=== PATIENT | male | born 1960 | race Caucasian/White ===

== ENCOUNTER → 2016-11-07 | Outpatient (CLI) | payer MEDICARE ==
[~2016-11-07] MED LIST: CALC600T7 PO; FISH1000 PO; IBUP200T2 PO; IBUP800T23 PO; MULTLIQ7 PO; MULTTAB4 PO; PERCOCET PO; PRIL40CA PO; VICO5TA PO; VITA200028 PO
[2016-11-07 13:47] LABS: BASO # 0.1 K/mm3 (0.0-0.2); BASO % 0.7 % (0.0-1.0); EOS # 0.3 K/mm3 (0.0-0.50); LARGE UNSTAINED CELL # 0.2 K/mm3 (0.0-0.4); LARGE UNSTAINED CELL % 1.7 % (0.0-4.0); LYMPH # 1.8 K/mm3 (1.5-4.5); LYMPH % 17.9 % (24.0-44.0); MEAN CORPUSCULAR HEMOGLOBIN 31.7 pg (27.0-33.0); MEAN CORPUSCULAR HGB CONC 34.4 g/dl (32.0-36.5); MONO # 0.6 K/mm3 (0.0-0.8); MONO % 5.5 % (0.0-5.0); NEUTROPHILS # 7.1 K/mm3 (1.8-7.7); NEUTROPHILS % 71.3 % (36.0-66.0); PLATELET COUNT, AUTOMATED 291 k/mm3 (150-450); RED CELL DISTRIBUTION WIDTH 12.7 % (11.5-14.5); WHITE BLOOD COUNT 9.9 K/mm3 (4.0-10.0)
== END ==
LOC: M SMT 09:27
PROVIDERS: ATTEND Family Medicine
DX: E53.8 Deficiency of other specified B group vitamins (principal); E78.5 Hyperlipidemia, unspecified; R73.01 Impaired fasting glucose; R97.20 Elevated prostate specific antigen [PSA]
CPT/HCPCS: 36415; 80061; 82550; 83036; 84443; 85025; 86140; G0103

== ENCOUNTER → 2016-12-21 | Outpatient (REF) | payer MEDICARE ==
[2016-12-21 18:35] LABS: MICROSCOPIC INDICATED? MAN YES (NO)
[2016-12-21 18:50] LABS: RBC, URINE 0-1 /hpf (0-3); WBC, URINE 0-1 /hpf (0-3)
[2016-12-21 18:51] LABS: BACTERIA, URINE NONE SEEN; HYALINE CAST, URINE NONE SEEN /lpf (0-1); SQUAMOUS EPITHELIAL CELL URINE SMALL AMOUNT /hpf (SMALL AMT)
[2016-12-21 18:52] LABS: MICROSCOPIC EXAM PERFORMED
== END ==
LOC: M SMT 16:49
PROVIDERS: ATTEND Urology
DX: N39.0 Urinary tract infection, site not specified (principal)

== ENCOUNTER → 2017-01-01 | Outpatient (CLI) | payer MEDICARE | LOC: M SMT 08:55 | PROVIDERS: ATTEND Family Medicine | DX: M19.049 Primary osteoarthritis, unspecified hand (principal) | CPT/HCPCS: 36415; 82550; 84681; 85652; 86038; 86140; 86431; G0463 ==

== ENCOUNTER → 2017-05-23 | Outpatient (REF) | payer MEDICARE ==
[~2017-05-23] MED LIST changes: +IBUP1TAB7 PO; -IBUP800T23 PO
[2017-05-23 15:27] LABS: CHOLESTEROL LEVEL 133 MG/DL (<200); FREE T4 0.94 NG/DL (0.76-1.46); TRIGLYCERIDES LEVEL 136 MG/DL (<150)
== END ==
LOC: M SFHCPLAZ 11:26
PROVIDERS: ATTEND Family Medicine
DX: M19.049 Primary osteoarthritis, unspecified hand (principal); E78.5 Hyperlipidemia, unspecified; Z11.59 Encounter for screening for other viral diseases; R73.01 Impaired fasting glucose; E55.9 Vitamin D deficiency, unspecified
CPT/HCPCS: 36415; 80061; 82306; 83036; 83970; 84439; 84443; 85652; 86140; 86200; 86803; G0463

== ENCOUNTER → 2017-05-29 | Outpatient (CLI) | payer MEDICARE ==
--- NOTE | 2017-05-29 10:26 | REP ---
RIGHT HAND, FOUR VIEWS: HISTORY: Osteoarthritis. There is no acute fracture or dislocation. There is narrowing of the metacarpal phalangeal , intermediate and distal interphalangeal joint spaces. Small osteophytes are present at several metacarpophalangeal , intermediate and distal interphalangeal joint spaces. IMPRESSION: Degenerative change as described above. Signed by Basilio Bustos MD 05/29/2017 10:39 A
== END ==
LOC: M SMT 08:38
PROVIDERS: ATTEND Family Medicine
DX: M19.041 Primary osteoarthritis, right hand (principal)

== ENCOUNTER → 2017-07-26 | Outpatient (REF) | payer MEDICARE | LOC: M LAB REF 11:46 | PROVIDERS: ATTEND Family Medicine | DX: L72.3 Sebaceous cyst (principal) | CPT/HCPCS: 87070; 87077; 87186; 87205; G0463 ==

== ENCOUNTER → 2017-09-27 | Outpatient (REF) | payer MEDICARE ==
[2017-09-27 13:47] LABS: BASO # 0.1 10^3/uL (0.0-0.2); BASO % 1.1 % (0.0-1.0); EOS # 0.4 10^3/uL (0.0-0.50); EOS % 4.1 % (0.0-3.0); IMMATURE GRANULOCYTE % 0.3 % (0-0); LYMPH % 22.6 % (24.0-44.0); MEAN CORPUSCULAR HEMOGLOBIN 30.9 pg (27.0-33.0); MEAN CORPUSCULAR HGB CONC 33.8 g/dl (32.0-36.5); MEAN CORPUSCULAR VOLUME 91.3 fl (80.0-96.0); MONO # 0.7 10^3/uL (0.0-0.8); MONO % 7.5 % (0.0-5.0); NEUTROPHILS # 5.6 10^3/uL (1.8-7.7); NEUTROPHILS % 64.4 % (36.0-66.0); PLATELET COUNT, AUTOMATED 301 10^3/uL (150-450); RED CELL DISTRIBUTION WIDTH 13.2 % (11.5-14.5); WHITE BLOOD COUNT 8.7 10^3/uL (4.0-10.0)
[2017-09-27 14:06] LABS: ALBUMIN 3.5 GM/DL (3.2-5.2); ALBUMIN/GLOBULIN RATIO 0.97 (1.00-1.93); ALKALINE PHOSPHATASE 98 U/L (45-117); ALT/SGPT 38 U/L (12-78); ANION GAP 6 MEQ/L (8-16); AST/SGOT 18 U/L (7-37); BILIRUBIN,TOTAL 0.4 MG/DL (0.2-1.0); BLOOD UREA NITROGEN 12 MG/DL (7-18); CALCIUM LEVEL 8.2 MG/DL (8.5-10.1); CARBON DIOXIDE LEVEL 27 MEQ/L (21-32); CHLORIDE LEVEL 107 MEQ/L (98-107); GLOMERULAR FILTRATION RATE > 60.0 (>56); GLUCOSE, FASTING 95 MG/DL (70-105); POTASSIUM SERUM 4.7 MEQ/L (3.5-5.1); SODIUM LEVEL 140 MEQ/L (136-145); TOTAL PROTEIN 7.1 GM/DL (6.4-8.2)
[2017-10-02 14:15] LABS: Lyme Disease IgG/IgM Antibodie <0.91 ISR (0.00-0.90); Lyme Disease IgM Ab Quantitati <0.80 index (0.00-0.79); SJOGREN'S ANTI SS-A <0.2 AI (0.0-0.9); SJOGREN'S ANTI SS-B <0.2 AI (0.0-0.9)
== END ==
LOC: M SFHCPLAZ 10:52
PROVIDERS: ATTEND Family Medicine
DX: M19.049 Primary osteoarthritis, unspecified hand (principal); E55.9 Vitamin D deficiency, unspecified; R73.01 Impaired fasting glucose
CPT/HCPCS: 36415; 80053; 81374; 82306; 83036; 83970; 85025; 86038; 86200; 86235; 86431; 86617; 90686; G0463

== ENCOUNTER → 2017-09-30 | Outpatient (REF) | payer MEDICARE | LOC: M SMT 13:08 | PROVIDERS: ATTEND Urology | DX: Z85.51 Personal history of malignant neoplasm of bladder (principal); Z79.52 Long term (current) use of systemic steroids; Z79.899 Other long term (current) drug therapy ==

== ENCOUNTER → 2018-01-22 | Outpatient (REF) | payer MEDICARE ==
[2018-01-22 15:40] LABS: INR 0.94; PROTHROMBIN TIME 12.6 SECONDS (12.4-14.5)
[2018-01-22 15:41] LABS: PARTIAL THROMBOPLASTIN TIME 32.7 SECONDS (26.8-37.9)
[2018-01-22 15:47] LABS: ALBUMIN 3.6 GM/DL (3.2-5.2); ALBUMIN/GLOBULIN RATIO 0.97 (1.00-1.93); ALKALINE PHOSPHATASE 105 U/L (45-117); ALT/SGPT 34 U/L (12-78); ANION GAP 2 MEQ/L (8-16); AST/SGOT 18 U/L (7-37); BILIRUBIN,TOTAL 0.7 MG/DL (0.2-1.0); BLOOD UREA NITROGEN 13 MG/DL (7-18); CALCIUM LEVEL 8.8 MG/DL (8.5-10.1); CARBON DIOXIDE LEVEL 30 MEQ/L (21-32); CHLORIDE LEVEL 108 MEQ/L (98-107); CHOLESTEROL LEVEL 145 MG/DL (<200); CHOLESTEROL RISK RATIO 4.393 (<5); CREATININE FOR GFR 0.87 MG/DL (0.70-1.30); GLOMERULAR FILTRATION RATE > 60.0 (>56); GLUCOSE, FASTING 85 MG/DL (70-100); HDL CHOLESTEROL 33 MG/DL (>40); LDL CHOLESTEROL 83.6 MG/DL (<100); NON-HDL-C 112 MG/DL; POTASSIUM SERUM 4.2 MEQ/L (3.5-5.1); SODIUM LEVEL 140 MEQ/L (136-145); TOTAL PROTEIN 7.3 GM/DL (6.4-8.2); TRIGLYCERIDES LEVEL 142 MG/DL (<150)
[2018-01-22 15:55] LABS: AMMONIA 48 uMOL/L (<32)
[2018-01-22 16:28] LABS: ESTIMATED AVERAGE GLUCOSE 128 MG/DL (60-110); HEMOGLOBIN A1c 6.1 %
== END ==
LOC: M SFHCPLAZ 12:27
DX: K70.0 Alcoholic fatty liver (principal); R73.01 Impaired fasting glucose; Z79.899 Other long term (current) drug therapy
CPT/HCPCS: 82140

== ENCOUNTER → 2018-05-26 | Outpatient (REF) | payer MEDICARE ==
[2018-05-26 12:37] LABS: BASO # 0.1 10^3/uL (0.0-0.2); BASO % 0.8 % (0.0-1.0); EOS # 0.3 10^3/uL (0.0-0.50); EOS % 2.7 % (0.0-3.0); HEMOGLOBIN 14.8 g/dl (13.5-17.5); IMMATURE GRANULOCYTE % 0.4 % (0-3.0); LYMPH # 2.1 10^3/uL (1.5-4.5); LYMPH % 20.9 % (24.0-44.0); MEAN CORPUSCULAR HGB CONC 34.4 g/dl (32.0-36.5); MONO # 0.7 10^3/uL (0.0-0.8); NEUTROPHILS # 6.7 10^3/uL (1.8-7.7); NEUTROPHILS % 68.2 % (36.0-66.0); PLATELET COUNT, AUTOMATED 274 10^3/uL (150-450); RED BLOOD COUNT 4.78 10^6/uL (4.30-6.10); RED CELL DISTRIBUTION WIDTH 13.5 % (11.5-14.5); RETIC HEMOGLOBIN EQUIVALENT 36.8 pg (24-36); RETICULOCYTE # 58.8 10^9/L (17-77); RETICULOCYTE % 1.2 % (0.5-1.5); WHITE BLOOD COUNT 9.8 10^3/uL (4.0-10.0)
[2018-05-26 12:38] LABS: APPEARANCE, URINE CLEAR (CLEAR); BACTERIA, URINE AUTO NEGATIVE (NEGATIVE); BILIRUBIN, URINE AUTO NEGATIVE (NEGATIVE); BLOOD, URINE BLOOD NEGATIVE (NEGATIVE); COLOR, URINE YELLOW (YELLOW); GLUCOSE, URINE (UA) AUTO NEGATIVE (NEGATIVE); KETONE, URINE AUTO NEGATIVE (NEGATIVE); LEUKOCYTE ESTERASE, URINE AUTO NEGATIVE (NEGATIVE); NITRITE, URINE AUTO NEGATIVE (NEGATIVE); PROTEIN, URINE AUTO NEGATIVE (NEGATIVE); RBC, URINE AUTO 1 /HPF (0-3); SPECIFIC GRAVITY URINE AUTO 1.009 (1.002-1.035); SQUAMOUS EPITHELIAL CELL UR AU 0 /HPF (0-6); UROBILINOGEN, URINE AUTO 0.2 mg/dL (0.0-2.0); WBC, URINE AUTO 0 /HPF (0-3)
[2018-05-26 12:51] LABS: PTH INTACT 34.4 PG/ML (18.5-88.0)
[2018-05-26 12:51] LABS: TOTAL 25(OH) VITAMIN D 50.8 NG/ML (30.0-100.0)
[2018-05-26 12:52] LABS: VITAMIN B12 LEVEL 616 PG/ML (247-911)
[2018-05-26 13:01] LABS: ERYTHROCYTE SEDIMENTATION RATE 15 mm/hr (0-20)
[2018-05-26 13:07] LABS: CREATININE, URINE 54.7 MG/DL; MALB URINE SIEMENS < 5.0 MG/L; MAU/CREAT RATIO 9.1 MCG/MG (0.0-30.0)
[2018-05-26 13:33] LABS: ESTIMATED AVERAGE GLUCOSE 137 MG/DL (60-110); HEMOGLOBIN A1c 6.4 %
[2018-05-27 15:32] LABS: INSULIN LEVEL 18.2 uIU/mL (2.6-24.9)
== END ==
LOC: M SFHCPLAZ 09:48
DX: K70.0 Alcoholic fatty liver (principal); R73.01 Impaired fasting glucose; Z12.5 Encounter for screening for malignant neoplasm of prostate; M19.049 Primary osteoarthritis, unspecified hand; E53.8 Deficiency of other specified B group vitamins; E55.9 Vitamin D deficiency, unspecified
CPT/HCPCS: 83525

== ENCOUNTER → 2018-06-03 | Outpatient (CLI) | payer MEDICARE | LOC: M RAD 15:37 | DX: S46.811A Strain of other muscles, fascia and tendons at shoulder and upper arm level, right arm, initial encounter (principal); X58.XXXA Exposure to other specified factors, initial encounter; Y92.9 Unspecified place or not applicable; M85.421 Solitary bone cyst, right humerus | CPT/HCPCS: 73221 ==

== ENCOUNTER → 2018-06-16 | Outpatient (CLI) | payer MEDICARE ==
[2018-06-16 18:58] LABS: BASO # 0.1 10^3/uL (0.0-0.2); BASO % 0.9 % (0.0-1.0); EOS # 0.3 10^3/uL (0.0-0.50); EOS % 3.2 % (0.0-3.0); HEMATOCRIT 45.1 % (42.0-52.0); HEMOGLOBIN 15.3 g/dl (13.5-17.5); IMMATURE GRANULOCYTE % 0.3 % (0-3.0); LYMPH # 2.5 10^3/uL (1.5-4.5); LYMPH % 27.2 % (24.0-44.0); MEAN CORPUSCULAR HEMOGLOBIN 31.1 pg (27.0-33.0); MEAN CORPUSCULAR HGB CONC 33.9 g/dl (32.0-36.5); MEAN CORPUSCULAR VOLUME 91.7 fl (80.0-96.0); MONO # 0.7 10^3/uL (0.0-0.8); MONO % 7.2 % (0.0-5.0); NEUTROPHILS # 5.5 10^3/uL (1.8-7.7); NEUTROPHILS % 61.2 % (36.0-66.0); PLATELET COUNT, AUTOMATED 298 10^3/uL (150-450); RED BLOOD COUNT 4.92 10^6/uL (4.30-6.10); RED CELL DISTRIBUTION WIDTH 13.5 % (11.5-14.5)
[2018-06-16 19:24] LABS: ALBUMIN 3.8 GM/DL (3.2-5.2); ALBUMIN/GLOBULIN RATIO 0.97 (1.00-1.93); ALKALINE PHOSPHATASE 112 U/L (45-117); ALT/SGPT 55 U/L (12-78); ANION GAP 8 MEQ/L (8-16); AST/SGOT 24 U/L (7-37); BILIRUBIN,DIRECT 0.2 MG/DL (0.0-0.2); BILIRUBIN,TOTAL 0.6 MG/DL (0.2-1.0); BLOOD UREA NITROGEN 11 MG/DL (7-18); CALCIUM LEVEL 8.7 MG/DL (8.5-10.1); CARBON DIOXIDE LEVEL 26 MEQ/L (21-32); CHLORIDE LEVEL 105 MEQ/L (98-107); CREATININE FOR GFR 0.96 MG/DL (0.70-1.30); GLOMERULAR FILTRATION RATE > 60.0 (>56); GLUCOSE, FASTING 86 MG/DL (70-100); LIPASE 90 U/L (73-393); SODIUM LEVEL 139 MEQ/L (136-145); TOTAL PROTEIN 7.7 GM/DL (6.4-8.2)
[2018-06-18 14:26] LABS: H PYLORI SERUM QUANT IgG ABY 0.42 (0.00-0.79)
== END ==
LOC: M LAB 18:26
DX: R10.11 Right upper quadrant pain (principal); R10.13 Epigastric pain
CPT/HCPCS: 82248

== ENCOUNTER → 2018-06-23 | Outpatient (CLI) | payer MEDICARE | LOC: M RAD 08:09 | DX: K76.0 Fatty (change of) liver, not elsewhere classified (principal); R10.11 Right upper quadrant pain | CPT/HCPCS: 76705 ==

== ENCOUNTER → 2018-07-15 | Outpatient (REF) | payer MEDICARE | LOC: M SFHCPLAZ 16:47 | DX: L82.1 Other seborrheic keratosis (principal) | CPT/HCPCS: 88305 ==

== ENCOUNTER 2018-08-02 11:53 | Emergency (ER) | payer MEDICARE | END 2018-08-02 12:43 | disposition home or self-care (01) | LOC: M ED 11:53 | DX: K08.89 Other specified disorders of teeth and supporting structures (principal); S02.5XXA Fracture of tooth (traumatic), initial encounter for closed fracture; X58.XXXA Exposure to other specified factors, initial encounter; Y92.89 Other specified places as the place of occurrence of the external cause; J44.9 Chronic obstructive pulmonary disease, unspecified; E78.00 Pure hypercholesterolemia, unspecified; F17.200 Nicotine dependence, unspecified, uncomplicated; Z88.5 Allergy status to narcotic agent; Z79.899 Other long term (current) drug therapy | CPT/HCPCS: 99282 ==

== ENCOUNTER → 2018-10-15 | Outpatient (REF) | payer MEDICARE ==
[~2018-10-15] MED LIST changes: +AMOX500C PO; +ATOR1TAB21; +HYDR-3713; +SUCR1TAB56
[2018-10-15 12:17] LABS: BASO # 0.1 10^3/uL (0.0-0.2); BASO % 1.1 % (0.0-1.0); EOS # 0.5 10^3/uL (0.0-0.50); EOS % 5.3 % (0.0-3.0); HEMATOCRIT 41.8 % (42.0-52.0); HEMOGLOBIN 14.2 g/dl (13.5-17.5); LYMPH # 1.9 10^3/uL (1.5-4.5); LYMPH % 22.4 % (24.0-44.0); MEAN CORPUSCULAR HEMOGLOBIN 30.7 pg (27.0-33.0); MEAN CORPUSCULAR VOLUME 90.3 fl (80.0-96.0); MONO # 0.6 10^3/uL (0.0-0.8); MONO % 7.5 % (0.0-5.0); NEUTROPHILS # 5.4 10^3/uL (1.8-7.7); NEUTROPHILS % 63.3 % (36.0-66.0); PLATELET COUNT, AUTOMATED 305 10^3/uL (150-450); RED BLOOD COUNT 4.63 10^6/uL (4.30-6.10); WHITE BLOOD COUNT 8.5 10^3/uL (4.0-10.0)
[2018-10-15 12:26] LABS: ALBUMIN 3.5 GM/DL (3.2-5.2); ALT/SGPT 33 U/L (12-78); BILIRUBIN,TOTAL 0.5 MG/DL (0.2-1.0); BLOOD UREA NITROGEN 9 MG/DL (7-18); CALCIUM LEVEL 8.3 MG/DL (8.5-10.1); CARBON DIOXIDE LEVEL 27 MEQ/L (21-32); CHLORIDE LEVEL 105 MEQ/L (98-107); CHOLESTEROL LEVEL 127 MG/DL (<200); CHOLESTEROL RISK RATIO 4.096 (<5); CREATININE FOR GFR 0.83 MG/DL (0.70-1.30); GLOMERULAR FILTRATION RATE > 60.0 (>56); GLUCOSE, FASTING 97 MG/DL (70-100); HDL CHOLESTEROL 31 MG/DL (>40); LDL CHOLESTEROL 74 MG/DL (<100); NON-HDL-C 96 MG/DL; POTASSIUM SERUM 4.6 MEQ/L (3.5-5.1); SODIUM LEVEL 140 MEQ/L (136-145); TOTAL PROTEIN 7.3 GM/DL (6.4-8.2); TRIGLYCERIDES LEVEL 108 MG/DL (<150)
[2018-10-15 14:01] LABS: HEMOGLOBIN A1c 6.1 %
== END ==
LOC: M SFHCPLAZ 09:03
PROVIDERS: ATTEND Family Medicine
DX: R73.01 Impaired fasting glucose (principal)

== ENCOUNTER → 2018-10-24 | Outpatient (REF) | payer MEDICARE ==
[2018-10-24 18:17] LABS: APPEARANCE, URINE CLEAR (CLEAR); BACTERIA, URINE AUTO 1+ (NEGATIVE); BILIRUBIN, URINE AUTO NEGATIVE (NEGATIVE); BLOOD, URINE BLOOD 3+ (NEGATIVE); COLOR, URINE YELLOW (YELLOW); GLUCOSE, URINE (UA) AUTO NEGATIVE (NEGATIVE); KETONE, URINE AUTO NEGATIVE (NEGATIVE); LEUKOCYTE ESTERASE, URINE AUTO NEGATIVE (NEGATIVE); NITRITE, URINE AUTO NEGATIVE (NEGATIVE); PROTEIN, URINE AUTO NEGATIVE (NEGATIVE); RBC, URINE AUTO 67 /HPF (0-3); SPECIFIC GRAVITY URINE AUTO 1.006 (1.002-1.035); SQUAMOUS EPITHELIAL CELL UR AU 0 /HPF (0-6); UROBILINOGEN, URINE AUTO 0.2 mg/dL (0.0-2.0); WBC, URINE AUTO 2 /HPF (0-3)
== END ==
LOC: M SMT 16:53
PROVIDERS: ATTEND Nurse Practitioner Women's Health
DX: R31.0 Gross hematuria (principal); Z85.51 Personal history of malignant neoplasm of bladder

== ENCOUNTER → 2018-11-07 | Outpatient (CLI) | payer MEDICARE ==
[~2018-11-07] MED LIST changes: +CIPR-249 PO; +FLAG500T PO; +ISOVUE-370 76% 100ML VIAL (Q9967) As Ordered ONE; +PEPC1TAB5 PO; +VITA1CAP7 PO; +ZOFR4TAB16 PO
--- NOTE | 2018-11-07 16:10 | REP ---
CT ABDOMEN PELVIS WITHOUT AND WITH CONTRAST (CT UROGRAM): 09/16/2019. Clinical history: Hematuria. The previous CT in 2011 alludes to history of bladder cancer. Comparison: 10/30/2011. Technique: Scanning through the abdomen pelvis before and after bolus of 100 ml of Isovue 370 with delayed images also obtained. Coronal and sagittal reconstructions and 3-D volume reconstruction rotated about the longitudinal axis of the body for CT urogram. CT abdomen: Lung bases are clear. Heart is not enlarged and no pericardial thickening or effusion and no hiatal hernia. Liver, spleen, gallbladder, adrenal glands and pancreas were all unremarkable. Stomach collapsed without any abnormality. The colon and small bowel loops in the abdomen proper are unremarkable. The abdominal aorta shows atherosclerotic calcifications. Maximum AP diameter 3.3 cm infrarenal suggesting minimal aneurysmal dilatation. On the CT 7 years ago was 2.5 cm. There is no evidence of dissection. Soft and calcific plaque noted. No periaortic, retroperitoneal or mesenteric pathologic sized lymphadenopathy. There is a periumbilical hernia of omental fat only without bowel herniation. Windows show degenerative disc changes at L5-S1 with narrowing and marginal osteophytes. No other lumbar lower thoracic significant finding. Ribs intact. CT pelvis: Sacrum, pelvis, hips and ischia show no acute finding. Minor chronic changes in the SI joint and left hip, stable. The noncontrast images showed no renal stone The three sequences showed no mass, cyst, solid mass, hydronephrosis or perinephric edema. There is no hydroureter on either side. The posterior bladder wall on the delayed and standard postcontrast images suggest some irregularity and prominence near the UVJ with thickening of the bladder wall in that location. I could not exclude mucosal lesion and in fact suspicious thereof. Symmetrical seminal vesicles are noted. There is no inguinal or ventral hernia nor inguinal lymphadenopathy. Surgical clips in the right inguinal region. The distal left colon and sigmoid without mass and only a few scattered diverticula. No diverticulitis. No pelvic lymphadenopathy. CT urogram shows no evidence of dilatation of the collecting system or ureters. Irregular impression at the posterior aspect of the bladder base on the right side near the UVJ again suspicious for a mucosal or bladder wall lesion. Impression: 1. No renal, ureteral or bladder stone but irregular thickening and nodular appearance of the bladder wall at the UVJ on the right, this raises suspicion for mucosal lesion or bladder wall mass. Further evaluation is needed. Prior CT indicated a history of bladder carcinoma. No hydronephrosis, renal mass or stone. 2. There is no abdominal, pelvic or inguinal pathologic sized lymphadenopathy. 3. Postoperative changes with surgical clips right inguinal canal and a periumbilical hernia with only omental fat. The solid organs in the upper abdomen grossly unremarkable. No acute bony changes visible. Electronically Signed by Wilfrid Blair MD 11/07/2018 05:06 P
== END ==
LOC: M RAD 13:07
PROVIDERS: ATTEND Urology
DX: R31.9 Hematuria, unspecified (principal)
CPT/HCPCS: 74178; Q9967

== ENCOUNTER → 2018-11-10 | Outpatient (REF) | payer MEDICARE ==
[~2018-11-10] MED LIST changes: -ISOVUE-370 76% 100ML VIAL (Q9967) As Ordered ONE
== END ==
LOC: M SMT 17:25
PROVIDERS: ATTEND Urology
DX: R30.0 Dysuria (principal)

== ENCOUNTER 2018-11-12 20:57 | Emergency (ER) | payer MEDICARE ==
[~2018-11-12] VITALS: Ht 177.8 cm; Wt 91.4 kg
[~2018-11-12 20:57] MED LIST changes: -CIPR-249 PO; -FLAG500T PO; -PEPC1TAB5 PO; -VITA1CAP7 PO; -ZOFR4TAB16 PO
[2018-11-12] MEDS ORDERED: VITA1CAP7 PO (21:12)
[2018-11-12 21:33] LABS: BASO # 0.1 10^3/uL (0.0-0.2); BASO % 0.7 % (0.0-1.0); EOS # 0.4 10^3/uL (0.0-0.50); EOS % 3.3 % (0.0-3.0); HEMATOCRIT 42.3 % (42.0-52.0); HEMOGLOBIN 14.6 g/dl (13.5-17.5); LYMPH # 3.3 10^3/uL (1.5-4.5); LYMPH % 26.4 % (24.0-44.0); MEAN CORPUSCULAR HGB CONC 34.5 g/dl (32.0-36.5); MEAN CORPUSCULAR VOLUME 89.8 fl (80.0-96.0); MONO # 0.9 10^3/uL (0.0-0.8); MONO % 7.5 % (0.0-5.0); NEUTROPHILS # 7.6 10^3/uL (1.8-7.7); NEUTROPHILS % 61.6 % (36.0-66.0); PLATELET COUNT, AUTOMATED 304 10^3/uL (150-450); RED BLOOD COUNT 4.71 10^6/uL (4.30-6.10); WHITE BLOOD COUNT 12.3 10^3/uL (4.0-10.0)
[2018-11-12 21:44] LABS: INR 0.98; PROTHROMBIN TIME 13.1 SECONDS (12.1-14.4)
[2018-11-12 21:45] LABS: PARTIAL THROMBOPLASTIN TIME 28.2 SECONDS (25.4-37.6)
[2018-11-12] MEDS ORDERED: ONDANSETRON 4MG/2ML VIAL (J2405) IV ONE (22:00)
[2018-11-12 22:02] LABS: ALBUMIN 3.8 GM/DL (3.2-5.2); ALT/SGPT 34 U/L (12-78); BILIRUBIN,DIRECT 0.2 MG/DL (0.0-0.2); BILIRUBIN,TOTAL 0.6 MG/DL (0.2-1.0); BLOOD UREA NITROGEN 11 MG/DL (7-18); CALCIUM LEVEL 8.6 MG/DL (8.5-10.1); CARBON DIOXIDE LEVEL 22 MEQ/L (21-32); CHLORIDE LEVEL 104 MEQ/L (98-107); CPK CREATINE PHOSPHOKINASE 66 U/L (39-308); CREATININE FOR GFR 0.89 MG/DL (0.70-1.30); GLOMERULAR FILTRATION RATE > 60.0 (>56); GLUCOSE, FASTING 119 MG/DL (70-100); LIPASE 89 U/L (73-393); MB/CK RELATIVE INDEX 2.88 (< OR =4); POTASSIUM SERUM 3.7 MEQ/L (3.5-5.1); SODIUM LEVEL 138 MEQ/L (136-145); TOTAL PROTEIN 7.7 GM/DL (6.4-8.2); TROPONIN I 0.05 NG/ML (< 0.10)
[2018-11-12] MEDS: MORPHINE 4 MG/ML 1ML VIAL/SYRINGE (J2270) IV PRN ×2 (22:06→22:35)
[2018-11-12 22:22] LABS: ETHYL ALCOHOL (ETHANOL) < 0.003 % (0.000-0.010)
[2018-11-12] MEDS ORDERED: NS 1,000 ML IV ONE (22:45)
[2018-11-12] MEDS ORDERED: ISOVUE-370 76% 100ML VIAL (Q9967) As Ordered ONE (23:08)
[2018-11-12] MEDS ORDERED: HYDROMORPHONE HCL 0.5 MG/ 0.5 ML SYRINGE (J1170 PER 1) IV PRN (23:15)
--- NOTE | 2018-11-13 00:30 | REPVR ---
EXAM: CT Angiography Chest With Contrast EXAM DATE/TIME: 11/12/2018 10:38 PM CLINICAL HISTORY: 58 years old, male; Pain; Chest pain; Type not specified; Additional info: Chest pain, abd pain TECHNIQUE: Axial computed tomographic angiography images of the chest with intravenous contrast using CT angiography protocol. All CT scans at this facility use at least one of these dose optimization techniques: automated exposure control; mA and/or kV adjustment per patient size (includes targeted exams where dose is matched to clinical indication); or iterative reconstruction. Coronal and sagittal reformatted images were created and reviewed. MIP reconstructed images were created and reviewed. CONTRAST: 100 ml of iso administered intravenously. COMPARISON: No relevant prior studies available. FINDINGS: PULMONARY ARTERIES: Enhancement within the pulmonary arteries is preserved bilaterally to the distal segmental levels, without evidence for acute pulmonary embolus. The main pulmonary trunk is not dilated. HEART AND AORTA: Cardiothoracic ratio is within normal limits. No pericardial effusion. There is some coronary artery disease suspected at the proximal left main. Thoracic aortic diameter is borderline at the ascending portion, with fusiform dimension of 39.6 mm. No discrete thoracic aortic aneurysm. No evidence of thoracic aortic dissection. MEDIASTINUM: No mediastinal gas. The visualized thyroid gland is within normal limits. No mediastinal hematoma. Small prevascular lymph nodes are seen. No AP window lymphadenopathy. Slightly prominent right peritracheal lymph nodes measuring up to 13.4 mm in short axis. Small left hilar lymph nodes are seen. Right hilar lymph nodes up to 1.9 cm in maximal dimension noted. Subcarinal lymph nodes up to 12 mm noted. No periesophageal fluid, gas or inflammatory stranding. LUNGS: The lungs are symmetric in expansion. There is no consolidation, pneumothorax or pleural effusion. Dependent subpleural groundglass and reticular opacities noted, most likely secondary to atelectasis and/or pulmonary parenchymal scarring at the lung bases. Mild scattered emphysematous changes noted towards the lung apices. Mild pleural thickening and parenchymal scarring at the lung apices. 4 mm pulmonary nodule noted anteriorly at the right lung apex. Slightly spiculated-appearing 7 mm pulmonary nodule noted anteroinferiorly within the right upper lobe (image 92, series 401). The significance of these nodules is uncertain and difficult to further characterize. Clinical correlation with risk factors is advised. If there are no prior studies for comparison, consider followup CT at 6 months to reevaluate. No obvious central tracheobronchial abnormality. UPPER ABDOMEN: Please refer to same day CT abdomen report for complete findings. MSK AND BODY WALL: Small nonspecific axillary lymph nodes. Incompletely evaluated postoperative changes of the cervical spine. No acute fracture seen. IMPRESSION: No evidence for acute pulmonary embolus. Borderline fusiform diameter of the ascending thoracic aorta at 39.6 mm. No thoracic aortic dissection. Coronary artery disease suspected. Atelectasis, emphysematous changes and pulmonary parenchymal scarring. Indeterminate pulmonary nodules. Non-emergent recommendations discussed above. A few slightly prominent mediastinal/hilar lymph nodes are seen. These could be reassessed at the time of followup to evaluate stability. Other incidental findings discussed above. Electronically signed by: Giuseppe Ernst On 11/13/2018 00:30:11 AM
--- NOTE | 2018-11-13 00:41 | REPVR ---
EXAM: CT Abdomen and Pelvis With Contrast EXAM DATE/TIME: 11/12/2018 10:38 PM CLINICAL HISTORY: 58 years old, male; Pain; Abdominal pain; Generalized; Additional info: Chest pain, abd pain TECHNIQUE: Axial computed tomography images of the abdomen and pelvis with intravenous contrast. All CT scans at this facility use at least one of these dose optimization techniques: automated exposure control; mA and/or kV adjustment per patient size (includes targeted exams where dose is matched to clinical indication); or iterative reconstruction. Coronal and sagittal reformatted images were created and reviewed. CONTRAST: 100 ml of iso administered intravenously. COMPARISON: CT ABD PELVIS W/O FOL BY WIT 11/07/2018 1:22 PM FINDINGS: LUNG BASES: Please refer to same day CT angiogram chest report for complete findings. VASCULAR: There is calcified and noncalcified aortoiliac atherosclerosis. Some noncalcified plaque has a slightly irregular appearance. Small focal likely chronic dissections of the distal abdominal aorta and left common iliac artery cannot be excluded. No retroperitoneal hematoma. There is mild fusiform infrarenal abdominal aortic informed dilation up to 3.4 cm. This is stable from the prior exam. PERITONEAL : No free air or free fluid. GI: No hiatal hernia. The stomach is mildly distended with ingested material, fluid and gas. The stomach is not sufficiently distended for complete diagnostic evaluation by this exam. If there are gastric symptoms, consider dedicated evaluation. No appearance of bowel obstruction. Minimal haziness within the central small bowel mesentery similar to the prior exam may be related to sclerosing mesenteritis, or mild gastroenteritis. Small nonspecific mesenteric lymph nodes are seen. Scattered fecal material and gas within portions of the colon. Portions of the colon and rectum appear slightly thick walled. There may be mild mucosal enhancement. Appearance may be secondary to insufficient distention but mild proctoscopy colitis cannot be excluded by imaging but could be correlated with any lower GI symptoms. No pericolonic inflammatory stranding. No evidence of acute diverticulitis. The appendix does not appear inflamed. HEPATOBILIARY, PANCREAS, SPLEEN: Sagittal hepatic length is 17.2 cm. Hepatic attenuation is consistent with fatty infiltration. No calcified gallstones or biliary dilation. No pancreatic inflammation. Spleen not enlarged. ADRENALS, KIDNEYS, BLADDER, RETROPERITONEAL: Adrenals within normal limits. No hydronephrosis. Symmetric renal enhancement. Mild nonspecific perinephric stranding. The urinary bladder appears slightly thick walled. This could be artifactual secondary to insufficient distention. There is slight nodular protrusion is measuring 7.5 mm along the posterior right aspect of the urinary bladder in the region of the right ureteral trigone similar to the prior exam. Soft tissue mass or neoplasia cannot be excluded. Consider delayed imaging with complete opacification of the urinary bladder, cystogram or cystoscopy for further evaluation. Mild enlarged slightly heterogeneous prostate. Prostate calcifications noted. MUSCULOSKELETAL: Fat containing umbilical hernia. Degenerative change of the lower lumbar spine. No suspicious bone lesion seen. No acute fracture seen. IMPRESSION: No free air, free fluid or focal mesenteric inflammation. Nonspecific gastrointestinal findings as discussed above. Calcified and noncalcified slightly irregular aortoiliac atherosclerosis. There may be small focal chronic incidental dissections. Stable infrarenal abdominal aortic aneurysm at 3.4 cm without evidence of rupture. Small bladder mass at the right ureteral trigone cannot be excluded. Recommendations discussed above. Other incidental findings discussed above. Electronically signed by: Giuspepe Ernst On 11/13/2018 00:41:18 AM
[2018-11-13] MEDS ORDERED: GI COCKTAIL 50ML BTL(HYOSCYAMINE/MAALOX/LIDOCAINE VISCOUS)(1:3:1) PO ONE (01:15)
[2018-11-13 01:30] VITALS: BP 142/87
[2018-11-13] MEDS ORDERED: PEPC1TAB5 PO (01:40)
[2018-11-13] MEDS ORDERED: FLAG500T PO (01:40)
[2018-11-13] MEDS ORDERED: ZOFR4TAB16 PO (01:40)
[2018-11-13] MEDS ORDERED: CIPR-249 PO (01:40)
[2018-11-13] MEDS ORDERED: CIPROFLOXACIN 500 MG TAB PO ONE (01:45)
[2018-11-13] MEDS ORDERED: metroNIDAZOLE (FLAGYL) 500 MG TAB PO ONE (01:45)
[2018-11-13] MEDS ORDERED: FAMOTIDINE 20 MG TAB PO ONE (01:45)
[2018-11-13] MEDS ORDERED: OXYCODONE/APAP 5MG/325MG(BULK FOR ED) 1 TABLET PO ONE (02:00)
--- NOTE | 2018-11-13 08:12 | ECGEPIP ---
Stationary ECG Study [facility] - ED Test Date: 2018-11-12 Pat Name: SHIRLEY RO Department: Room: - Gender: M Sod Stripper: garcia : 1960 Requested By: DANIA Bray Order Number: [id number] Reading MD: Gadiel Sheffield Measurements Intervals [place] Rate: 73 P: 32 [place]: 185 QRS: 9 QRSD: 90 T: 48 QT: 383 QTc: 424 Interpretive Statements SINUS RHYTHM ST ELEVATION CONSISTENT WITH INJURY, PERICARDITIS, OR EARLY REPOLARIZATION MODERATE ST DEPRESSION CLINICAL CORRELATION Electronically Signed On 11-13-2018 8:12:18 EST by Gadiel Sheffield
--- NOTE | 2018-11-14 08:05 | ED PDOC ---
Post-Departure Follow-Up dr gayle faxed formal report of ct abd/p for fu Evangelist Maldonado MD Nov 14, 2018 08:05
--- NOTE | 2018-11-14 08:06 | ED PDOC ---
Post-Departure Follow-Up cta chest also faxed to Evangelist Urbano MD Nov 14, 2018 08:06
== END 2018-11-13 02:01 | disposition home or self-care (01) ==
LOC: EDBD 20:57 → M ED 20:57
DX: K52.9 Noninfective gastroenteritis and colitis, unspecified (principal); R10.13 Epigastric pain; Z79.899 Other long term (current) drug therapy
CPT/HCPCS: 36415; 71275; 74177; 80048; 80076; 81001; 82550; 82553; 83690; 84484; 85025; 85610; 85730; 87086; 93005; 93041; 96361; 96374; 96375; 96376; 99285; G0480; J1170; J2270; J2405; Q9967

== ENCOUNTER → 2018-11-17 | Outpatient (REF) | payer MEDICARE ==
[~2018-11-17] MED LIST changes: +ASPI81CH32 PO; +AUGM875T28; +CIPR-249 PO; +CLOP75TA2; +FLAG500T PO; +METO1TAB7; +NITR0.4S14; +PANT40TA3; +PEPC1TAB5 PO; +VITA1CAP7 PO; +ZOFR4TAB16 PO
== END ==
LOC: M SMT 12:41
PROVIDERS: ATTEND Urology
DX: Z01.818 Encounter for other preprocedural examination (principal); D49.4 Neoplasm of unspecified behavior of bladder; N39.0 Urinary tract infection, site not specified

== ENCOUNTER 2018-11-19 10:58 | Emergency (ER) | payer MEDICARE ==
[~2018-11-19] VITALS: Ht 172.7 cm; Wt 95.1 kg
[~2018-11-19 10:58] MED LIST changes: -ASPI81CH32 PO; -AUGM875T28; -CLOP75TA2; -METO1TAB7; -NITR0.4S14; -PANT40TA3
[2018-11-19 11:31] LABS: BASO % 0.3 % (0.0-1.0); EOS % 0.1 % (0.0-3.0); HEMATOCRIT 39.2 % (42.0-52.0); HEMOGLOBIN 13.5 g/dl (13.5-17.5); LYMPH # 1.2 10^3/uL (1.5-4.5); LYMPH % 8.6 % (24.0-44.0); MEAN CORPUSCULAR HEMOGLOBIN 31.2 pg (27.0-33.0); MEAN CORPUSCULAR HGB CONC 34.4 g/dl (32.0-36.5); MEAN CORPUSCULAR VOLUME 90.5 fl (80.0-96.0); MONO # 1.5 10^3/uL (0.0-0.8); MONO % 10.7 % (0.0-5.0); NEUTROPHILS % 79.7 % (36.0-66.0); PLATELET COUNT, AUTOMATED 340 10^3/uL (150-450); RED BLOOD COUNT 4.33 10^6/uL (4.30-6.10); WHITE BLOOD COUNT 13.8 10^3/uL (4.0-10.0)
--- NOTE | 2018-11-19 11:47 | REP ---
Chest one-view HISTORY: Chest pain Comparison: 09/06/2011 The lungs are clear. The heart is normal in size. The pulmonary vasculature is normal in appearance. Impression: No acute disease. Electronically Signed by Basilio Bustos MD 11/19/2018 11:39 A
[2018-11-19] MEDS ORDERED: GI COCKTAIL 50ML BTL(HYOSCYAMINE/MAALOX/LIDOCAINE VISCOUS)(1:3:1) PO ONE (13:00)
[2018-11-19] MEDS ORDERED: PANTOPRAZOLE 40MG INJ (PROTONIX) (C9113) IV ONE (13:00)
[2018-11-19 13:01] LABS: ALBUMIN 3.3 GM/DL (3.2-5.2); ALT/SGPT 26 U/L (12-78); BILIRUBIN,TOTAL 0.5 MG/DL (0.2-1.0); BLOOD UREA NITROGEN 13 MG/DL (7-18); CALCIUM LEVEL 8.3 MG/DL (8.5-10.1); CARBON DIOXIDE LEVEL 24 MEQ/L (21-32); CHLORIDE LEVEL 100 MEQ/L (98-107); CPK CREATINE PHOSPHOKINASE 116 U/L (39-308); CREATININE FOR GFR 0.81 MG/DL (0.70-1.30); GLOMERULAR FILTRATION RATE > 60.0 (>56); GLUCOSE, FASTING 124 MG/DL (70-100); LIPASE 67 U/L (73-393); MB/CK RELATIVE INDEX 3.45 (< OR =4); SODIUM LEVEL 135 MEQ/L (136-145); TOTAL PROTEIN 6.6 GM/DL (6.4-8.2); TROPONIN I 3.83 NG/ML (< 0.10)
[2018-11-19] MEDS: NITROGLYCERIN 0.4 MG SUBL TABLET SL PRN ×3 (13:12→13:25)
[2018-11-19] MEDS ORDERED: ASPIRIN 81 MG CHEW TABLET As Ordered ONE (13:12)
[2018-11-19] MEDS ORDERED: ASPIRIN 81 MG CHEW TABLET PO ONE (13:15)
[2018-11-19 13:25] VITALS: BP 110/64
[2018-11-19] MEDS ORDERED: HEPARIN DRIP 25,000 UNITS in APPROPRIATE DILUENT 1 EA IV SCH (13:37)
[2018-11-19] MEDS ORDERED: HEPARIN SOD (PORCINE) 5000 UNITS/ML VIAL IV ONE (13:45)
[2018-11-19] MEDS ORDERED: CLOPIDOGREL 300 MG TAB (PLAVIX) PO ONE (13:45)
[2018-11-19] MEDS: fentaNYL 100 MCG/2 ML INJECTION (J3010) IV PRN ×3 (13:51→15:25)
[2018-11-19 14:33] LABS: INR 1.35; PROTHROMBIN TIME 16.8 SECONDS (12.1-14.4)
[2018-11-19 14:34] LABS: PARTIAL THROMBOPLASTIN TIME 35.8 SECONDS (25.4-37.6)
[2018-11-19 15:19] VITALS: BP 134/65
--- NOTE | 2018-11-19 17:51 | ECGEPIP ---
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
--- NOTE | 2018-11-19 17:54 | ECGEPIP ---
Stationary ECG Study [facility] - ED Test Date: 2018-11-19 Pat Name: SHIRLEY RO Department: Room: - Gender: M Ad Taker: CONSTANTINO : 1960 Requested By: Gadiel Horvath Order Number: [id number] Reading MD: Danae Jones Measurements Intervals [place] Rate: 89 P: 34 [place]: 156 QRS: -51 QRSD: 88 T: 73 QT: 332 QTc: 405 Interpretive Statements SINUS RHYTHM POSSIBLE RIGHT VENTRICULAR CONDUCTION DELAY LEFT ANTERIOR FASCICULAR BLOCK NONSPECIFIC ST ELEVATION SIMILAR 11:10 Electronically Signed On 11-19-2018 17:54:23 EST by Danae Jones
== END 2018-11-19 15:26 | disposition short-term general hospital (02) ==
LOC: M ED 10:58
DX: I21.4 Non-ST elevation (NSTEMI) myocardial infarction (principal); C67.9 Malignant neoplasm of bladder, unspecified; K21.9 Gastro-esophageal reflux disease without esophagitis; F17.210 Nicotine dependence, cigarettes, uncomplicated
CPT/HCPCS: 71045; 80053; 82550; 82553; 83690; 84484; 85025; 85610; 85730; 93005; 93041; 94760; 96374; 96375; 99285; C9113; J3010

== ENCOUNTER → 2018-11-24 | Outpatient (CLI) | payer MEDICARE ==
[~2018-11-24] MED LIST changes: +ASPI81CH32 PO; +AUGM875T28; +CLOP75TA2; +COLC1TAB14; +IBUP-1022 PO; +METO1TAB7; +NITR0.4S14; +PANT40TA3; +PRED10TA2 PO; +ROSU10TA5
[2018-11-24 11:40] LABS: BASO # 0.1 10^3/uL (0.0-0.2); BASO % 0.8 % (0.0-1.0); EOS # 0.3 10^3/uL (0.0-0.50); EOS % 2.3 % (0.0-3.0); HEMATOCRIT 37.9 % (42.0-52.0); HEMOGLOBIN 12.8 g/dl (13.5-17.5); LYMPH # 1.7 10^3/uL (1.5-4.5); MEAN CORPUSCULAR HEMOGLOBIN 30.8 pg (27.0-33.0); MEAN CORPUSCULAR HGB CONC 33.8 g/dl (32.0-36.5); MEAN CORPUSCULAR VOLUME 91.1 fl (80.0-96.0); MONO # 0.8 10^3/uL (0.0-0.8); MONO % 6.7 % (0.0-5.0); NEUTROPHILS # 9.1 10^3/uL (1.8-7.7); NEUTROPHILS % 75.6 % (36.0-66.0); PLATELET COUNT, AUTOMATED 417 10^3/uL (150-450); RED BLOOD COUNT 4.16 10^6/uL (4.30-6.10)
[2018-11-24 12:15] LABS: ALBUMIN 3.1 GM/DL (3.2-5.2); ALT/SGPT 26 U/L (12-78); BILIRUBIN,TOTAL 0.6 MG/DL (0.2-1.0); BLOOD UREA NITROGEN 8 MG/DL (7-18); C REACTIVE PROTEIN QUANTITATIV 9.24 MG/DL (0.00-0.30); CALCIUM LEVEL 8.7 MG/DL (8.5-10.1); CARBON DIOXIDE LEVEL 23 MEQ/L (21-32); CHLORIDE LEVEL 102 MEQ/L (98-107); CREATININE FOR GFR 0.76 MG/DL (0.70-1.30); GLOMERULAR FILTRATION RATE > 60.0 (>56); GLUCOSE, FASTING 105 MG/DL (70-100); SODIUM LEVEL 136 MEQ/L (136-145); TOTAL PROTEIN 7.7 GM/DL (6.4-8.2)
[2018-11-24 13:28] LABS: ERYTHROCYTE SEDIMENTATION RATE 76 mm/hr (0-20)
== END ==
LOC: M LAB 10:52
PROVIDERS: ATTEND Physician Assistant Medical
DX: J18.1 Lobar pneumonia, unspecified organism (principal); D49.4 Neoplasm of unspecified behavior of bladder
CPT/HCPCS: 36415; 80053; 85025; 85652; 86140; 87040; G0463

== ENCOUNTER 2018-11-25 16:28 | Emergency (ER) | payer MEDICARE ==
[~2018-11-25] VITALS: Ht 177.8 cm; Wt 95.5 kg
[~2018-11-25 16:28] MED LIST changes: -ASPI81CH32 PO; -AUGM875T28; -CLOP75TA2; -METO1TAB7; -NITR0.4S14; -PANT40TA3
[2018-11-25 17:51] LABS: BASO # 0.1 10^3/uL (0.0-0.2); BASO % 0.8 % (0.0-1.0); EOS # 0.2 10^3/uL (0.0-0.50); EOS % 1.9 % (0.0-3.0); HEMATOCRIT 35.6 % (42.0-52.0); HEMOGLOBIN 12.2 g/dl (13.5-17.5); LYMPH # 1.5 10^3/uL (1.5-4.5); MEAN CORPUSCULAR HEMOGLOBIN 30.3 pg (27.0-33.0); MEAN CORPUSCULAR HGB CONC 34.3 g/dl (32.0-36.5); MEAN CORPUSCULAR VOLUME 88.3 fl (80.0-96.0); MONO # 0.7 10^3/uL (0.0-0.8); NEUTROPHILS # 7.7 10^3/uL (1.8-7.7); NEUTROPHILS % 74.8 % (36.0-66.0); PLATELET COUNT, AUTOMATED 428 10^3/uL (150-450); RED BLOOD COUNT 4.03 10^6/uL (4.30-6.10); WHITE BLOOD COUNT 10.3 10^3/uL (4.0-10.0)
[2018-11-25 18:03] LABS: INR 1.09; PARTIAL THROMBOPLASTIN TIME 33.9 SECONDS (25.4-37.6); PROTHROMBIN TIME 14.2 SECONDS (12.1-14.4)
[2018-11-25 18:32] LABS: ALBUMIN 3.1 GM/DL (3.2-5.2); ALT/SGPT 25 U/L (12-78); BILIRUBIN,DIRECT 0.1 MG/DL (0.0-0.2); BILIRUBIN,TOTAL 0.6 MG/DL (0.2-1.0); BLOOD UREA NITROGEN 9 MG/DL (7-18); CALCIUM LEVEL 8.6 MG/DL (8.5-10.1); CARBON DIOXIDE LEVEL 25 MEQ/L (21-32); CHLORIDE LEVEL 102 MEQ/L (98-107); CK-MB VALUE MASS < 1.0 NG/ML (<3.6); CPK CREATINE PHOSPHOKINASE 64 U/L (39-308); CREATININE FOR GFR 0.69 MG/DL (0.70-1.30); FREE T4 1.32 NG/DL (0.76-1.46); GLOMERULAR FILTRATION RATE > 60.0 (>56); GLUCOSE, FASTING 89 MG/DL (70-100); LIPASE 94 U/L (73-393); MB/CK RELATIVE INDEX 1.56 (< OR =4); POTASSIUM SERUM 4.4 MEQ/L (3.5-5.1); SODIUM LEVEL 135 MEQ/L (136-145); TOTAL PROTEIN 6.8 GM/DL (6.4-8.2); TROPONIN I 0.66 NG/ML (< 0.10)
[2018-11-25] MEDS ORDERED: ISOVUE-370 76% 100ML VIAL (Q9967) As Ordered ONE (19:40)
--- NOTE | 2018-11-25 20:21 | REP ---
Clinical: Acute chest pain. Technique: Axial contrast enhanced images from the thoracic inlet to the upper abdomen with coronal and sagittal re-formations using pulmonary embolus protocol. 100 ml Isovue 370 intravenous contrast material administered without complication. Comparison: 11/12/2018. Findings: Satisfactory enhancement of the pulmonary vasculature is achieved and no filling defects are identified to suggest pulmonary embolus. Mild bibasilar atelectasis with small pleural effusions are identified. Chronic moderate emphysematous changes are noted. 5 mm noncalcified nodule in the anterior right upper lobe (image 48). Mediastinal and hilar adenopathy including right hilar lymph nodes measuring up to approximately 2.1 cm diameter likely reactive. A new moderate pericardial effusion is identified without underlying cardiomegaly. No significant atherosclerotic changes to the thoracic aorta or coronary arteries identified. Aorta is without aneurysm or dissection. Musculoskeletal structures are intact. Evidence for anterior cervical fusion. Limited upper abdomen demonstrates normal bilateral adrenal glands. Impression: 1. New moderate pericardial effusion represents a change from 11/12/2018 and concerning for acute pericarditis. 2. New mild bibasilar atelectasis and small pleural effusions along with associated reactive adenopathy. 3. 5 mm noncalcified nodule in the anterior right upper lobe warrants further investigation and follow-up. Electronically Signed by Lucas Huitron MD 11/25/2018 08:12 P
--- NOTE | 2018-11-25 20:27 | REP ---
Clinical: Acute chest and abdominal pain. Technique: Axial contrast enhanced images from the lung bases to the pubic symphysis using 100 ml Isovue 370 intravenous contrast material with coronal and sagittal re-formations. Comparison: 11/12/2018 Findings: Lung bases demonstrate mild bibasilar atelectasis and small pleural reactions. A new moderate pericardial effusion is identified concerning for pericarditis. Fatty infiltration to the liver noted. Spleen, pancreas, gallbladder, bilateral adrenal glands and kidneys are normal. The enteric system is without obstruction or acute inflammatory process. Normal terminal ileum and appendix identified in the right lower quadrant. Sigmoid diverticulosis noted without acute diverticulitis. 3.3 cm fat containing periumbilical hernia noted. Pelvis demonstrates collapsed bladder and small 1 cm mass along the right posterior wall of the bladder cannot be excluded (image 127). Prostate gland is within normal limits. No ascites. No free air. No intraperitoneal or retroperitoneal adenopathy. Significant atherosclerotic changes to the aorta and branch vessels noted without dissection. Musculoskeletal structures without focal osseous abnormality. Impression: 1. Hepatosteatosis. 2. Diverticulosis without acute diverticulitis. 3. 3.3 cm fat containing periumbilical hernia. 4. 1 cm mass along the right posterior aspect of the bladder requires further investigation to exclude neoplasm. 5. Significant atherosclerotic changes to the aorta and vasculature without aneurysm or dissection. 6. Lung bases demonstrate moderate pericardial effusion concerning for pericarditis with mild bibasilar atelectasis and small effusions. Electronically Signed by Lucas Huitron MD 11/25/2018 08:19 P
--- NOTE | 2018-11-25 21:25 | ECGEPIP ---
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
[2018-11-25 21:39] LABS: C REACTIVE PROTEIN QUANTITATIV 8.79 MG/DL (0.00-0.30)
[2018-11-25 21:56] LABS: ERYTHROCYTE SEDIMENTATION RATE 79 mm/hr (0-20)
[2018-11-26] MEDS ORDERED: METO1TAB7 (00:45)
[2018-11-26] MEDS ORDERED: ASPI81CH32 PO (00:45)
[2018-11-26] MEDS ORDERED: CLOP75TA2 (00:45)
[2018-11-26] MEDS ORDERED: AUGM875T28 (00:45)
[2018-11-26] MEDS ORDERED: PANT40TA3 (00:45)
[2018-11-26] MEDS ORDERED: NITR0.4S14 (01:39)
[2018-11-26] MEDS ORDERED: traMADol 50 MG TAB PO ONE (01:45)
[2018-11-26 01:46] VITALS: BP 118/59
--- NOTE | 2018-11-26 09:18 | ECHO ---
DATE OF PROCEDURE: 11/25/2018 REFERRING PHYSICIAN: Dr. Johnson INDICATION: Pericardial effusion. Chest pain. HEIGHT: 175 cm. WEIGHT: 91 kg. DIMENSIONS: IVS: 1.4 LV: 4.8 LVPW: 0.9 LA: 3.3 Aorta: 3.5 IVC: 2.0 Ascending aorta: 3.7 Mitral E wave velocity varies between 48 and 78 A wave was not properly documented E prime septal: 8.6 E prime lateral: 5.9 FINDINGS: The patient is in sinus rhythm during the study. The study is overall fair technical quality. The left ventricle is normal size. There is extensive wall motion abnormality that involves most of the lateral wall, inferolateral wall and segments of the inferior wall that are virtually akinetic. Remaining LV segments have normal contractility. I estimate overall EF approximately 40-45%. The right ventricle does not appear grossly enlarged. Both atria appear grossly normal. The aortic, mitral and tricuspid valves appear normal. The pulmonic valve was not well seen. There is an approximately moderate sized circumferential pericardial effusion. It is largest adjacent to the lateral wall, at the which point, it measures 1.5 cm. I do not appreciate any collapse of any of the four cardiac chambers. The inferior vena cava is dilated and has no appreciable collapse with respiration indicative of high central venous pressure. The aortic root is normal. The aortic arch also appears normal. The abdominal aorta was not well seen. Doppler interrogation reveals no aortic or mitral valvular disease. The tricuspid valve is also functionally competent. Mitral inflow pattern and tissue Doppler imaging of the mitral annulus reveal grade 1 diastolic dysfunction. There is fairly significant variation of mitral inflow velocities which is likely indicating of hemodynamic significance of pericardial effusion. CONCLUSIONS: 1. Study is of fair technical quality. 2. Normal LV size with segmental wall motion abnormality as noted above and overall approximately moderate left ventricular systolic dysfunction. Grade 1 diastolic dysfunction. 3. No significant valvular disease. 4. Moderate-sized pericardial effusion with early hemodynamic significance. 5. Elevated central venous pressure. COMMENT: Subacute bacterial endocarditis (SBE) prophylaxis is not recommended. Considering recent coronary intervention, the differential diagnosis of pericardial effusion needs to consider possibility of intrapericardial hemorrhage. I do recommend that the patient gets transferred to [place] with availability of cardiothoracic surgery.
== END 2018-11-26 01:47 | disposition short-term general hospital (02) ==
LOC: M ED 16:28
DX: I31.3 Pericardial effusion (noninflammatory) (principal); I44.4 Left anterior fascicular block; J44.9 Chronic obstructive pulmonary disease, unspecified; E78.5 Hyperlipidemia, unspecified; Z01.818 Encounter for other preprocedural examination; D49.4 Neoplasm of unspecified behavior of bladder; R91.8 Other nonspecific abnormal finding of lung field; R31.0 Gross hematuria; Z95.5 Presence of coronary angioplasty implant and graft; Z86.73 Personal history of transient ischemic attack (TIA), and cerebral infarction without residual deficits; Z79.899 Other long term (current) drug therapy; Z79.82 Long term (current) use of aspirin; Z79.01 Long term (current) use of anticoagulants; Z87.891 Personal history of nicotine dependence
CPT/HCPCS: 36415; 71046; 71275; 74177; 80048; 80076; 81001; 82550; 82553; 83690; 84439; 84443; 84484; 85025; 85610; 85652; 85730; 86140; 87040; 87086; 93005; 93041; 93306; 94760; 99285; Q9967

== ENCOUNTER → 2018-11-25 | Outpatient (REF) | payer MEDICARE ==
[~2018-11-25] MED LIST changes: -COLC1TAB14; -IBUP-1022 PO; -PRED10TA2 PO; -ROSU10TA5
[2018-11-25 19:12] LABS: APPEARANCE, URINE CLEAR (CLEAR); BACTERIA, URINE AUTO NEGATIVE (NEGATIVE); BILIRUBIN, URINE AUTO NEGATIVE (NEGATIVE); BLOOD, URINE BLOOD 1+ (NEGATIVE); COLOR, URINE YELLOW (YELLOW); GLUCOSE, URINE (UA) AUTO NEGATIVE (NEGATIVE); KETONE, URINE AUTO NEGATIVE (NEGATIVE); LEUKOCYTE ESTERASE, URINE AUTO NEGATIVE (NEGATIVE); MUCUS, URINE SMALL (NEGATIVE); NITRITE, URINE AUTO NEGATIVE (NEGATIVE); PROTEIN, URINE AUTO NEGATIVE (NEGATIVE); RBC, URINE AUTO 6 /HPF (0-3); SPECIFIC GRAVITY URINE AUTO 1.017 (1.002-1.035); SQUAMOUS EPITHELIAL CELL UR AU 0 /HPF (0-6); UROBILINOGEN, URINE AUTO 0.2 mg/dL (0.0-2.0); WBC, URINE AUTO 4 /HPF (0-3)
== END ==
LOC: M SFHCPLAZ 17:51
PROVIDERS: ATTEND Physician Assistant Medical
DX: R31.0 Gross hematuria (principal)

== ENCOUNTER → 2018-11-25 | Outpatient (CLI) | payer MEDICARE ==
--- NOTE | 2018-11-25 11:22 | REP ---
Clinical: Bladder tumor. Technique: PA and lateral. Comparison: 11/19/2018. Findings: Opacification of the left base may reflect lingular atelectasis and should be correlated clinically. No effusion. No pneumothorax. Mediastinum and cardiac silhouette are stable. Airway appears patent. Skeletal structures are intact. Evidence for prior cervical fusion. Impression: Possible subtle lingular atelectasis. Electronically Signed by Lucas Huitron MD 11/25/2018 11:14 A
== END ==
LOC: M SMT 10:56
PROVIDERS: ATTEND Urology
DX: Z01.818 Encounter for other preprocedural examination (principal); R91.8 Other nonspecific abnormal finding of lung field; D49.4 Neoplasm of unspecified behavior of bladder

== ENCOUNTER 2018-12-13 17:26 | Emergency (ER) | payer MEDICARE ==
[~2018-12-13] VITALS: Ht 177.8 cm; Wt 88.6 kg
[~2018-12-13 17:26] MED LIST changes: +ASPI81CH32 PO; +AUGM875T28; +CLOP75TA2; +METO1TAB7; +NITR0.4S14; +PANT40TA3
[2018-12-13 17:52] LABS: BASO # 0.1 10^3/uL (0.0-0.2); BASO % 0.6 % (0.0-1.0); EOS # 0.2 10^3/uL (0.0-0.50); EOS % 1.9 % (0.0-3.0); HEMATOCRIT 40.7 % (42.0-52.0); HEMOGLOBIN 13.6 g/dl (13.5-17.5); LYMPH # 1.8 10^3/uL (1.5-4.5); LYMPH % 18.2 % (24.0-44.0); MEAN CORPUSCULAR HGB CONC 33.4 g/dl (32.0-36.5); MEAN CORPUSCULAR VOLUME 89.8 fl (80.0-96.0); MONO # 0.7 10^3/uL (0.0-0.8); MONO % 6.9 % (0.0-5.0); NEUTROPHILS # 7.2 10^3/uL (1.8-7.7); NEUTROPHILS % 72.2 % (36.0-66.0); PLATELET COUNT, AUTOMATED 285 10^3/uL (150-450); RED BLOOD COUNT 4.53 10^6/uL (4.30-6.10)
[2018-12-13] MEDS ORDERED: COLC1TAB14 (17:58)
[2018-12-13] MEDS ORDERED: ROSU10TA5 (17:58)
[2018-12-13] MEDS ORDERED: PRED10TA2 PO (17:58)
[2018-12-13 18:20] LABS: BLOOD UREA NITROGEN 12 MG/DL (7-18); CALCIUM LEVEL 8.5 MG/DL (8.5-10.1); CARBON DIOXIDE LEVEL 25 MEQ/L (21-32); CHLORIDE LEVEL 101 MEQ/L (98-107); CK-MB VALUE MASS < 1.0 NG/ML (<3.6); CPK CREATINE PHOSPHOKINASE 56 U/L (39-308); CREATININE FOR GFR 0.82 MG/DL (0.70-1.30); GLOMERULAR FILTRATION RATE > 60.0 (>56); GLUCOSE, FASTING 86 MG/DL (70-100); MB/CK RELATIVE INDEX 1.79 (< OR =4); SODIUM LEVEL 136 MEQ/L (136-145); TROPONIN I < 0.02 NG/ML (< 0.10)
[2018-12-13] MEDS ORDERED: GI COCKTAIL 50ML BTL(HYOSCYAMINE/MAALOX/LIDOCAINE VISCOUS)(1:3:1) PO ONE (20:15)
[2018-12-13] MEDS ORDERED: ISOVUE-370 76% 100ML VIAL (Q9967) As Ordered ONE (20:19)
[2018-12-13 20:30] LABS: C REACTIVE PROTEIN QUANTITATIV 1.35 MG/DL (0.00-0.30)
[2018-12-13 20:41] LABS: ERYTHROCYTE SEDIMENTATION RATE 25 mm/hr (0-20)
--- NOTE | 2018-12-13 21:43 | REPVR ---
EXAM: CT Abdomen and Pelvis With Contrast EXAM DATE/TIME: 12/13/2018 8:23 PM CLINICAL HISTORY: 58 years old, male; Pain; Abdominal pain; Generalized; Additional info: Chest pain, HX of pericarditis TECHNIQUE: Axial computed tomography images of the abdomen and pelvis with intravenous contrast. All CT scans at this facility use at least one of these dose optimization techniques: automated exposure control; mA and/or kV adjustment per patient size (includes targeted exams where dose is matched to clinical indication); or iterative reconstruction. Coronal and sagittal reformatted images were created and reviewed. CONTRAST: 100 ml of ISOVUE 370 administered intravenously. COMPARISON: CT ABD PELVIS WITH CONTRAST 11/25/2018 7:42 PM FINDINGS: Lower thorax: Clear appearing lung bases. The heart is normal in size. There is a mild to moderate sized pericardial effusion and measuring approximately 1.4 cm in greatest thickness along the right side of the heart. On the examination of 11/25/2018 pericardial effusion was much larger 2.2 CM in thickness and surrounding the entire heart. Pericardial effusion now demonstrates a very thin appearance at the anterior left ventricle. The amount of pericardial effusion is less than half the amount on the previous examination. ABDOMEN: Liver: Normal appearing liver. Gallbladder and bile ducts: Normal gallbladder. Normal common bile duct. There are few tiny gallstones in the dependent portion of the gallbladder. Pancreas: The pancreas appears within the range of normal. Spleen: Normal spleen. Adrenals: Normal adrenal glands. Kidneys and ureters: There is enhancement of both kidneys. There is no evidence of hydronephrosis. There is no evidence of free fluid in the abdomen or the pelvis. Stomach and bowel: Normal-appearing small bowel. Normal-appearing appendix. PELVIS: Bladder: 1 cm round nodular density at the base of the urinary bladder on the right. Recommend cystoscopy to evaluate for the possibility of a malignant nodule. Mild distention of the urinary bladder. Reproductive: Moderate enlargement of the prostate. ABDOMEN and PELVIS: Intraperitoneal space: There is no evidence of pneumoperitoneum. Bones/joints: There is no evidence of bony abnormality. Soft tissues: 3 CM umbilical hernia with protrusion of only mesenteric fat. Vasculature: There is aneurysmal dilatation and of the lower abdominal aorta measuring 3.4 CM in AP dimension. There is severe irregular atherosclerotic plaque formation. There is a linear atherosclerotic plaque at the left internal iliac artery unchanged since the previous exam. Lymph nodes: Normal. No enlarged lymph nodes. IMPRESSION: 1. There is a small to moderate sized pericardial effusion but less than half the amount of pericardial effusion when compared with 11/25/2018. 2. Aneurysmal dilatation of the aorta 3.3 CM. Linear atherosclerotic septation proximal left iliac artery unchanged. 3. 1 cm increased density nodule at the right urinary bladder base near the right ureterovesical junction. This could represent a malignant nodule and cystoscopy should be considered. Electronically signed by: Raghu Cutler On 12/13/2018 21:43:19 PM
[2018-12-13 21:50] VITALS: BP 135/76
--- NOTE | 2018-12-13 21:57 | REPVR ---
EXAM: CT Angiography Chest With Contrast EXAM DATE/TIME: 12/13/2018 8:23 PM CLINICAL HISTORY: 58 years old, male; Pain; Chest pain; Type not specified; Additional info: Chest pain, HX of pericarditis TECHNIQUE: Axial computed tomographic angiography images of the chest with intravenous contrast using CT angiography protocol. All CT scans at this facility use at least one of these dose optimization techniques: automated exposure control; mA and/or kV adjustment per patient size (includes targeted exams where dose is matched to clinical indication); or iterative reconstruction. Coronal and sagittal reformatted images were created and reviewed. MIP reconstructed images were created and reviewed. CONTRAST: 100 ml of ISOVUE 370 administered intravenously. COMPARISON: CT ANGIO CHEST 11/25/2018 7:42 PM FINDINGS: Pulmonary arteries: There is opacification of the pulmonary arteries with no evidence of pulmonary embolus. Aorta: There is opacification of the aorta which appears intact. Lungs: 6 mm nodular density at the right mid lung field anteriorly positioned. This could be benign or malignant. A followup CT scan in 6 months would be important for further evaluation of this. 2 additional small nodules are noted abutting the pleura right upper lung anterior in position. There is also a small nodular density abutting the upper portion of the major fissure on the right. Pleural space: There is no evidence of pneumothorax. Very small amount of pleural effusions. Heart: Pericardial effusion less than half the amount of the examination of 11/25/2018. Lymph nodes: There are small lymph nodes in the mediastinum and hilar region. Bones/joints: There is no evidence of bony abnormality. Soft tissues: Unremarkable. IMPRESSION: 1. Mild to moderate pericardial effusion less than half the amount seen 11/25/2018. 2. Pulmonary nodules on the right recommend followup CT examination in no longer than 6 months to document stability of these nodules. No evidence of pulmonary embolus Electronically signed by: Raghu Cutler On 12/13/2018 21:57:12 PM
[2018-12-13] MEDS ORDERED: NITROGLYCERIN 0.4 MG SUBL TABLET SL STA (22:01)
[2018-12-13 23:50] LABS: CK-MB VALUE MASS < 1.0 NG/ML (<3.6); CPK CREATINE PHOSPHOKINASE 61 U/L (39-308); MB/CK RELATIVE INDEX 1.64 (< OR =4); TROPONIN I 0.02 NG/ML (< 0.10)
[2018-12-14] MEDS ORDERED: IBUP-1022 PO (00:28)
[2018-12-14] MEDS ORDERED: IBUPROFEN 600 MG TAB PO ONE (00:30)
[2018-12-14 00:31] VITALS: BP 104/67
[2018-12-14] MEDS ORDERED: IBUPROFEN 600 MG TAB As Ordered ONE (00:33)
--- NOTE | 2018-12-14 09:11 | REP ---
AP PORTABLE CHEST: 12/13/2018. CLINICAL HISTORY: Chest pain. COMPARISON: CT angiogram and chest x-ray 11/25/2018, portable chest 11/19/2018. FINDINGS: Lungs are better inflated than on the previous portable chest and CT, and the hazy basilar densities on previous study are resolved. I do not see pleural effusion, lateral pleural thickening, or apical scarring. There is no dense consolidation or mass. Heart is not enlarged. There is an epicardial fat pad along the left heart border. The aorta is mildly tortuous but unchanged. Airway intact. There is plate and screw fixation of the lower cervical spines, as before. IMPRESSION: 1. No definite infiltrate, effusion, cardiomegaly, edema, atelectasis, or mass. 2. Aorta mildly tortuous but unchanged. Airway intact. Minor basilar patchy densities on previous study resolved. Electronically Signed by Wilfrid Blair MD 12/14/2018 09:15 A
--- NOTE | 2018-12-14 16:33 | ECGEPIP ---
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
--- NOTE | 2018-12-14 16:38 | ECGEPIP ---
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
--- NOTE | 2018-12-22 19:26 | ED PDOC ---
Post-Departure Follow-Up dr gayle faxed formal report of cta for fu Evangelist Maldonado MD Dec 22, 2018 19:26
--- NOTE | 2018-12-22 19:27 | ED PDOC ---
Post-Departure Follow-Up ct abd/p also faxed to dr gayle for fu Evangelist Maldonado MD Dec 22, 2018 19:27
== END 2018-12-14 00:43 | disposition home or self-care (01) ==
LOC: M ED 17:26
DX: R07.9 Chest pain, unspecified (principal); I44.4 Left anterior fascicular block; I31.3 Pericardial effusion (noninflammatory); R93.41 Abnormal radiologic findings on diagnostic imaging of renal pelvis, ureter, or bladder; R91.8 Other nonspecific abnormal finding of lung field; I25.10 Atherosclerotic heart disease of native coronary artery without angina pectoris; I25.2 Old myocardial infarction; Z87.891 Personal history of nicotine dependence; Z95.5 Presence of coronary angioplasty implant and graft; Z79.82 Long term (current) use of aspirin; Z79.899 Other long term (current) drug therapy; Z88.5 Allergy status to narcotic agent
CPT/HCPCS: 36415; 71045; 71275; 74177; 80048; 82550; 82553; 84484; 85025; 85652; 86140; 93005; 93041; 94760; 99285; Q9967

== ENCOUNTER → 2018-12-24 | Outpatient (CLI) | payer MEDICARE ==
[~2018-12-24] MED LIST changes: +COLC1TAB14; +IBUP-1022 PO; +PRED10TA2 PO; +ROSU10TA5
[2018-12-24 13:32] LABS: ALBUMIN 3.5 GM/DL (3.2-5.2); ALT/SGPT 28 U/L (12-78); BILIRUBIN,DIRECT 0.1 MG/DL (0.0-0.2); BILIRUBIN,TOTAL 0.3 MG/DL (0.2-1.0); BLOOD UREA NITROGEN 15 MG/DL (7-18); CALCIUM LEVEL 8.6 MG/DL (8.5-10.1); CARBON DIOXIDE LEVEL 27 MEQ/L (21-32); CHLORIDE LEVEL 108 MEQ/L (98-107); CHOLESTEROL LEVEL 100 MG/DL (<200); CREATININE FOR GFR 0.71 MG/DL (0.70-1.30); GLOMERULAR FILTRATION RATE > 60.0 (>56); GLUCOSE, FASTING 104 MG/DL (70-100); HDL CHOLESTEROL 33 MG/DL (>40); LDL CHOLESTEROL 54 MG/DL (<100); NON-HDL-C 67 MG/DL; POTASSIUM SERUM 4.6 MEQ/L (3.5-5.1); SODIUM LEVEL 141 MEQ/L (136-145); TOTAL PROTEIN 7.1 GM/DL (6.4-8.2); TRIGLYCERIDES LEVEL 67 MG/DL (<150)
[2018-12-24 13:39] LABS: HEMATOCRIT 38.7 % (42.0-52.0); HEMOGLOBIN 12.5 g/dl (13.5-17.5); MEAN CORPUSCULAR HEMOGLOBIN 29.7 pg (27.0-33.0); MEAN CORPUSCULAR HGB CONC 32.3 g/dl (32.0-36.5); MEAN CORPUSCULAR VOLUME 91.9 fl (80.0-96.0); PLATELET COUNT, AUTOMATED 331 10^3/uL (150-450); RED BLOOD COUNT 4.21 10^6/uL (4.30-6.10)
== END ==
LOC: M SMT 09:52
PROVIDERS: ATTEND Internal Medicine Interventional Cardiology
DX: I21.3 ST elevation (STEMI) myocardial infarction of unspecified site (principal)

== ENCOUNTER → 2018-12-24 | Outpatient (CLI) | payer MEDICARE ==
[2018-12-24 13:15] LABS: BASO # 0.1 10^3/uL (0.0-0.2); BASO % 1.4 % (0.0-1.0); EOS # 0.3 10^3/uL (0.0-0.50); EOS % 4.1 % (0.0-3.0); HEMATOCRIT 37.9 % (42.0-52.0); HEMOGLOBIN 12.4 g/dl (13.5-17.5); LYMPH # 1.4 10^3/uL (1.5-4.5); MEAN CORPUSCULAR HEMOGLOBIN 29.7 pg (27.0-33.0); MEAN CORPUSCULAR HGB CONC 32.7 g/dl (32.0-36.5); MEAN CORPUSCULAR VOLUME 90.7 fl (80.0-96.0); MONO # 0.5 10^3/uL (0.0-0.8); MONO % 7.3 % (0.0-5.0); NEUTROPHILS # 4.2 10^3/uL (1.8-7.7); PLATELET COUNT, AUTOMATED 332 10^3/uL (150-450); RED BLOOD COUNT 4.18 10^6/uL (4.30-6.10); WHITE BLOOD COUNT 6.4 10^3/uL (4.0-10.0)
[2018-12-24 13:31] LABS: ALBUMIN 3.6 GM/DL (3.2-5.2); ALT/SGPT 29 U/L (12-78); BILIRUBIN,TOTAL 0.3 MG/DL (0.2-1.0); BLOOD UREA NITROGEN 15 MG/DL (7-18); CALCIUM LEVEL 8.7 MG/DL (8.5-10.1); CARBON DIOXIDE LEVEL 27 MEQ/L (21-32); CHLORIDE LEVEL 106 MEQ/L (98-107); CHOLESTEROL LEVEL 104 MG/DL (<200); CHOLESTEROL RISK RATIO 3.058 (<5); CPK CREATINE PHOSPHOKINASE 63 U/L (39-308); CREATININE FOR GFR 0.78 MG/DL (0.70-1.30); GLOMERULAR FILTRATION RATE > 60.0 (>56); GLUCOSE, FASTING 102 MG/DL (70-100); HDL CHOLESTEROL 34 MG/DL (>40); LDL CHOLESTEROL 56 MG/DL (<100); MAGNESIUM LEVEL 2.3 MG/DL (1.8-2.4); NON-HDL-C 70 MG/DL; POTASSIUM SERUM 4.3 MEQ/L (3.5-5.1); SODIUM LEVEL 140 MEQ/L (136-145); TOTAL PROTEIN 7.2 GM/DL (6.4-8.2); TRIGLYCERIDES LEVEL 68 MG/DL (<150)
== END ==
LOC: M SMT 09:55
PROVIDERS: ATTEND Family Medicine
DX: Z01.818 Encounter for other preprocedural examination (principal); I25.10 Atherosclerotic heart disease of native coronary artery without angina pectoris; E78.5 Hyperlipidemia, unspecified; I10 Essential (primary) hypertension; I21.3 ST elevation (STEMI) myocardial infarction of unspecified site; D49.4 Neoplasm of unspecified behavior of bladder; N39.0 Urinary tract infection, site not specified

== ENCOUNTER → 2018-12-24 | Outpatient (CLI) | payer MEDICARE ==
--- NOTE | 2018-12-24 10:35 | REP ---
Clinical: Preoperative assessment. Bladder tumor . Comparison: 12/13/2018 . Technique: PA and lateral. Findings: The mediastinum and cardiac silhouette are normal. The lung rojas are clear and without acute consolidation, effusion, or pneumothorax. The skeletal structures are intact and normal. Impression: 1. No acute cardiopulmonary process. Electronically Signed by Lucas Huitron MD 12/24/2018 10:27 A
[2018-12-24 13:14] LABS: HEMATOCRIT 38.7 % (42.0-52.0); HEMOGLOBIN 12.5 g/dl (13.5-17.5); MEAN CORPUSCULAR HEMOGLOBIN 29.7 pg (27.0-33.0); MEAN CORPUSCULAR HGB CONC 32.3 g/dl (32.0-36.5); MEAN CORPUSCULAR VOLUME 91.9 fl (80.0-96.0); PLATELET COUNT, AUTOMATED 331 10^3/uL (150-450); RED BLOOD COUNT 4.21 10^6/uL (4.30-6.10)
[2018-12-24 13:33] LABS: BLOOD UREA NITROGEN 15 MG/DL (7-18); CALCIUM LEVEL 8.6 MG/DL (8.5-10.1); CARBON DIOXIDE LEVEL 27 MEQ/L (21-32); CHLORIDE LEVEL 109 MEQ/L (98-107); GLOMERULAR FILTRATION RATE > 60.0 (>56); GLUCOSE, FASTING 104 MG/DL (70-100); INR 1.11; PROTHROMBIN TIME 14.4 SECONDS (12.1-14.4); SODIUM LEVEL 143 MEQ/L (136-145)
[2018-12-24 13:34] LABS: PARTIAL THROMBOPLASTIN TIME 35.7 SECONDS (25.4-37.6)
== END ==
LOC: M SMT 09:59
PROVIDERS: ATTEND Urology
DX: Z01.818 Encounter for other preprocedural examination (principal); D49.4 Neoplasm of unspecified behavior of bladder; N39.0 Urinary tract infection, site not specified

== ENCOUNTER → 2019-02-04 | Outpatient (CLI) | payer MEDICARE ==
[~2019-02-04] MED LIST changes: +ALBU83IN INH; -ASPI81CH32 PO; +ASPI81CH33 PO; +D-3-50003 PO; +OXYC1TAB23 PO; -PERCOCET PO; -VITA1CAP7 PO
[2019-02-04 17:53] LABS: HEMATOCRIT 43.1 % (42.0-52.0); HEMOGLOBIN 14.1 g/dl (13.5-17.5); MEAN CORPUSCULAR HEMOGLOBIN 29.9 pg (27.0-33.0); MEAN CORPUSCULAR HGB CONC 32.7 g/dl (32.0-36.5); MEAN CORPUSCULAR VOLUME 91.3 fl (80.0-96.0); PLATELET COUNT, AUTOMATED 288 10^3/uL (150-450); RED BLOOD COUNT 4.72 10^6/uL (4.30-6.10); WHITE BLOOD COUNT 8.5 10^3/uL (4.0-10.0)
[2019-02-04 17:56] LABS: BLOOD UREA NITROGEN 13 MG/DL (7-18); CALCIUM LEVEL 8.7 MG/DL (8.8-10.2); CARBON DIOXIDE LEVEL 26 MEQ/L (21-32); CHLORIDE LEVEL 107 MEQ/L (98-107); CREATININE FOR GFR 0.81 MG/DL (0.70-1.30); GLOMERULAR FILTRATION RATE > 60.0 (>49); GLUCOSE, FASTING 90 MG/DL (70-100); POTASSIUM SERUM 4.3 MEQ/L (3.5-5.1); SODIUM LEVEL 140 MEQ/L (136-145)
== END ==
LOC: M SMT 14:39
PROVIDERS: ATTEND Family Medicine
DX: Z01.818 Encounter for other preprocedural examination (principal); C67.9 Malignant neoplasm of bladder, unspecified; N39.0 Urinary tract infection, site not specified

== ENCOUNTER → 2019-02-04 | Outpatient (REF) | payer MEDICARE ==
[2019-02-04 13:51] LABS: APPEARANCE, URINE MANUAL TURBID (CLEAR); COLOR, URINE MANUAL BROWN (YELLOW)
[2019-02-04 13:52] LABS: BILIRUBIN, URINE MANUAL 2+ (NEGATIVE); BLOOD URINE MANUAL POSITIVE (NEGATIVE); GLUCOSE, URINE (UA) MANUAL NEGATIVE (NEGATIVE); KETONE, URINE MANUAL 1+ mg/dL (NEGATIVE); LEUKOCYTE ESTERASE, URINE MAN POSITIVE (NEGATIVE); NITRITE, URINE MANUAL POSITIVE (NEGATIVE); PROTEIN, URINE MANUAL 2+ mg/dL (NEGATIVE); UROBILINOGEN, URINE MANUAL 1 MG mg/dl (NORMAL)
[2019-02-04 14:16] LABS: RBC, URINE TNTC /hpf (0-3); SQUAMOUS EPITHELIAL CELL URINE NONE SEEN /hpf (SMALL AMT); WBC, URINE 30-40 /hpf (0-3)
[2019-02-04 14:17] LABS: BACTERIA, URINE NONE SEEN; HYALINE CAST, URINE NONE SEEN /lpf (0-1)
== END ==
LOC: M SMT 13:36
PROVIDERS: ATTEND Nurse Practitioner Family
DX: Z01.818 Encounter for other preprocedural examination (principal); R31.9 Hematuria, unspecified; C67.9 Malignant neoplasm of bladder, unspecified; N39.0 Urinary tract infection, site not specified

== ENCOUNTER 2019-02-13 07:53 | Day surgery (SDC) | payer MEDICARE ==
[~2019-02-13] VITALS: Ht 177.8 cm; Wt 100.2 kg
[~2019-02-13 07:53] MED LIST changes: +LIDOCAINE 1% MDV 20ML VIAL SQ PRN
[2019-02-13] MEDS ORDERED: LR 1,000 ML IV ONE (08:00)
[2019-02-13] MEDS ORDERED: dexameTHASONE 4 MG/ML 1ML VIAL (J1100) As Ordered ONE (08:06)
[2019-02-13] MEDS ORDERED: NEOSTIGMINE 10 MG/10 ML VIAL (J2710) As Ordered ONE (08:06)
[2019-02-13] MEDS ORDERED: PROPOFOL 200 MG/20 ML VIAL As Ordered ONE (08:06)
[2019-02-13] MEDS ORDERED: ONDANSETRON 4MG/2ML VIAL (J2405) As Ordered ONE (08:06)
[2019-02-13] MEDS ORDERED: MIDAZOLAM INJ 2 MG/2 ML VIAL (J2250) As Ordered ONE (08:06)
[2019-02-13] MEDS ORDERED: LIDOCAINE 2% INJ 100 MG/5 ML SDV (FOR ANES.) As Ordered ONE (08:06)
[2019-02-13] MEDS ORDERED: ROCURONIUM BROMIDE 50 MG/5 ML VIAL As Ordered ONE (08:06)
[2019-02-13] MEDS ORDERED: GLYCOPYRROLATE INJ 0.2 MG/ML 2 ML VIAL As Ordered ONE (08:06)
[2019-02-13] MEDS ORDERED: fentaNYL 100 MCG/2 ML INJECTION (J3010) As Ordered ONE ×3 (08:07→13:02)
[2019-02-13] MEDS ORDERED: ceFAZolin 2 GM/D5W 50 ML IV BAG (J0690 PER 500MG) As Ordered ONE (08:22)
[2019-02-13] MEDS ORDERED: SUGAMMADEX SODIUM 500 MG/5 ML VIAL (BRIDION) As Ordered ONE (08:28)
[2019-02-13] MEDS ORDERED: CONRAY-60 60% 50ML VIAL (Q9961) As Ordered ONE (10:22)
[2019-02-13] MEDS ORDERED: PHENYLephrine HCL 500 MCG/5 ML (100MCG/ML) SYRINGE (J2370) As Ordered ONE (11:07)
--- NOTE | 2019-02-13 12:49 | REP ---
Retrograde pyelogram: A series of four intraoperative fluoroscopic views are performed during right ureteral stent placement. The final film demonstrates the proximal and distal pigtails are in satisfactory positions. Fluoroscopic exposure time is 1 minute 5 seconds. The fluoroscopic images are performed with last image hold technology and require no additional radiation. Electronically Signed by Michael Loza MD 02/13/2019 12:40 P
[2019-02-13] MEDS ORDERED: PERCOCET 5MG/325MG TAB As Ordered ONE (13:02)
[2019-02-13] MEDS: PERCOCET 5MG/325MG TAB PO PRN ×3 (13:05→21:20)
[2019-02-13] MEDS: fentaNYL 100 MCG/2 ML INJECTION (J3010) IV PRN ×4 (13:05→13:20)
[2019-02-13] MEDS ORDERED: HYDROMORPHONE HCL 0.5 MG/ 0.5 ML SYRINGE (J1170 PER 1) IV PRN (13:15)
[2019-02-13] MEDS ORDERED: PERCOCET 5MG/325MG TAB PO PRN ×2 (13:15→17:30)
[2019-02-13] MEDS ORDERED: LR 1,000 ML IV SCH (13:15)
[2019-02-13] MEDS ORDERED: ONDANSETRON 4MG/2ML VIAL (J2405) IV PRN ×2 (13:15→20:30)
[2019-02-13] MEDS ORDERED: oxyBUTYnin 5 MG TAB PO ONE (14:45)
[2019-02-13] MEDS ORDERED: KETOROLAC 30 MG/ML VIAL (J1885) As Ordered ONE (15:16)
[2019-02-13] MEDS ORDERED: KETOROLAC 30 MG/ML VIAL (J1885) IV ONE (15:19)
--- NOTE | 2019-02-13 15:27 | RO ---
DATE OF PROCEDURE: 02/13/2019 PREPROCEDURE DIAGNOSIS: Bladder tumor. POSTPROCEDURE DIAGNOSIS: Distal right ureteral tumor. PROCEDURE: Cystoscopy, Transurethral Resection of Bladder Tumor (between 2cm and 5cm), Right Ureteroscopy, Right Retrograde Pyelogram with Intraoperative Interpretation of Images, Examination Under Anesthesia, Right Ureteral Stent Placement. SURGEON: Dallin Hernandez MD CALCULATION REVIEWER: None. ANESTHESIA: General. OPERATIVE INDICATIONS: This is a 59-year-old male with a history of bladder cancer who recently started having gross hematuria again. On office cystoscopy, he was found to have what appeared to be a possible tumor on the right ureteral orifice. He was brought to the operating room today for treatment. DESCRIPTION OF PROCEDURE: Patient brought to the operating room and general anesthesia was induced. Prophylactic antibiotics infused. A bimanual digital rectal examination under anesthesia was performed. It was negative for prostate nodules. There were no palpable bladder masses. The bladder freely mobile. The patient was then prepped and draped in the usual sterile fashion. A rigid cystoscope was inserted through the urethral meatus and advanced into the bladder. The bladder was then thoroughly examined, and the only abnormality seen was what appeared to be a mound of tissue protruding in the area of the right ureteral orifice. Of note, there did not appear to be actually any tumors on the ureteral orifice, but it appeared to be tumor growing out of the ureteral orifice. Because of this, the decision was made to perform a ureteroscopy to examine the remainder of the right collecting system. At this point, a wire was advanced up the right collecting system, and then a ureteral access sheath was advanced up the right collecting system. I then went up the right collecting system with the flexible ureteroscope, and I was able to examine the entire ureter but could not examine the more proximal ureter and the kidney due to narrowing of the ureter. I could not get the ureteroscope up into the kidney. I therefore put a ureteral catheter into the right renal pelvis and obtained several samples for right renal pelvis washing for cytology. A retrograde pyelogram was performed and was notable for mild right hydronephrosis with no extravasation and no filling defects. I then put the ureteroscope back in and then withdrew the ureteroscope all the way down to the level of the distal ureter and within the distal ureter approximately 1 inch to 2 inches above the level of the ureteral orifice there did appear to be papillary tumors inside the ureter. These tumors appeared to grow all the way down to the level of the ureteral orifice and out of it. At this point, it did not appear that I could actually remove all the tumor inside the ureter. I, therefore, decided to resect the right ureteral orifice back to obtain tumor samples. At this point, the ureteroscope and the wire were then removed, and I went in with a resectoscope. I then resected the right ureteral orifice and I did appear to get sample of the tumor while doing this. After that was done, I cauterized around the edges of the resection and noted there still appeared to be some tumor inside the ureter. At this point, I advanced the wire up the right collecting system and then advanced a #7-Bhutanese x 22-32 cm JJ ureteral stent up the right collecting system. The wire was then removed there were adequate curls of the stent in right renal pelvis and in the bladder. At this point, I went back in with the resectoscope. All of our specimens were removed to be sent off for pathologic analysis. Any additional areas of bleeding around the area of resection were then cauterized. Once satisfied with hemostasis, the resectoscope was removed and #18-Bhutanese العلي catheter inserted into the bladder, and the balloon was filled with 10 mL of sterile water. The catheter was then connected to gravity drainage. This marked conclusion of procedure. The patient was then taken out of dorsal lithotomy position, awakened from anesthesia, transported to the recovery room in stable condition. ESTIMATED BLOOD LOSS: 5mL. COMPLICATIONS: None. SPECIMENS: Resection of right ureteral orifice, right renal pelvis washing for cytology. PLAN: The patient will followup in the clinic in a few days for catheter removal. We will take the stent out in 2-3 weeks. Of note, I suspect, based on the remaining tumor inside the ureter and the fact that it was only occupying the distal ureter, that he might benefit from a distal right ureterectomy or a right nephroureterectomy.. RONALDOD
[2019-02-13] MEDS ORDERED: HYDROMORPHONE HCL 0.5 MG/ 0.5 ML SYRINGE (J1170 PER 1) As Ordered ONE ×2 (16:27→16:36)
[2019-02-13] MEDS: HYDROMORPHONE HCL 0.5 MG/ 0.5 ML SYRINGE (J1170 PER 1) IV PRN ×3 (16:30→16:45)
[2019-02-13 17:30] VITALS: BP 132/82
[2019-02-13] MEDS ORDERED: ALBUTEROL SULFATE 2.5 MG/0.5 ML INH NEB SOLN NEB PRN (17:30)
[2019-02-13 18:00] VITALS: BP 132/77
[2019-02-13 18:30] VITALS: BP 123/68
[2019-02-13 19:30] VITALS: BP 129/68
[2019-02-13 20:30] VITALS: BP 123/71
[2019-02-13] MEDS ORDERED: ACETAMINOPHEN TAB 650MG DOSE (2X325MG) PO PRN (20:30)
[2019-02-13] MEDS ORDERED: ROSUVASTATIN 10 MG TAB (CRESTOR) PO SCH (21:00)
[2019-02-13 22:00] VITALS: BP 129/62
[2019-02-14 02:00] VITALS: BP 115/63
[2019-02-14] MEDS: PERCOCET 5MG/325MG TAB PO PRN ×2 (04:01→08:01)
[2019-02-14 06:00] VITALS: BP 130/65
[2019-02-14] MEDS ORDERED: ASPIRIN 81 MG ENTERIC TAB PO SCH (09:00)
[2019-02-14] MEDS ORDERED: PERC5TAB12 PO (09:40)
[2019-02-14] MEDS ORDERED: DITR5TAB PO (09:41)
== END 2019-02-14 09:48 | disposition home or self-care (01) ==
LOC: M SDC 07:53 → M MSPAV 17:34 → M SDC 02-14 09:48
PROVIDERS: ATTEND Urology
DX: C67.6 Malignant neoplasm of ureteric orifice (principal); I10 Essential (primary) hypertension; I25.2 Old myocardial infarction; E78.5 Hyperlipidemia, unspecified; Z98.61 Coronary angioplasty status; J44.9 Chronic obstructive pulmonary disease, unspecified; Z79.51 Long term (current) use of inhaled steroids; M06.9 Rheumatoid arthritis, unspecified; Z79.82 Long term (current) use of aspirin; Z79.899 Other long term (current) drug therapy
CPT/HCPCS: 52235; 52332; 74420; 88108; 88307; 96374; C1769; C2617; J0690; J1100; J1170; J1885; J2250; J2370; J2405; J2710; J3010; Q9961

== ENCOUNTER → 2019-03-02 | Outpatient (REF) | payer MEDICARE ==
[~2019-03-02] MED LIST changes: +DITR5TAB PO; -LIDOCAINE 1% MDV 20ML VIAL SQ PRN; +PERC5TAB12 PO
[2019-03-02 12:58] LABS: BASO # 0.1 10^3/uL (0.0-0.2); BASO % 1.6 % (0.0-1.0); EOS # 0.3 10^3/uL (0.0-0.50); EOS % 4.1 % (0.0-3.0); HEMATOCRIT 43.1 % (42.0-52.0); HEMATOCRIT 43.6 % (42.0-52.0); HEMOGLOBIN 14.1 g/dl (13.5-17.5); HEMOGLOBIN 14.2 g/dl (13.5-17.5); LYMPH # 1.7 10^3/uL (1.5-4.5); LYMPH % 24.2 % (24.0-44.0); MEAN CORPUSCULAR HEMOGLOBIN 29.2 pg (27.0-33.0); MEAN CORPUSCULAR HEMOGLOBIN 29.4 pg (27.0-33.0); MEAN CORPUSCULAR HGB CONC 32.6 g/dl (32.0-36.5); MEAN CORPUSCULAR HGB CONC 32.7 g/dl (32.0-36.5); MEAN CORPUSCULAR VOLUME 89.5 fl (80.0-96.0); MEAN CORPUSCULAR VOLUME 89.8 fl (80.0-96.0); MONO # 0.6 10^3/uL (0.0-0.8); NEUTROPHILS # 4.3 10^3/uL (1.8-7.7); NEUTROPHILS % 60.8 % (36.0-66.0); PLATELET COUNT, AUTOMATED 277 10^3/uL (150-450); PLATELET COUNT, AUTOMATED 280 10^3/uL (150-450); RED BLOOD COUNT 4.87 10^6/uL (4.30-6.10)
[2019-03-02 13:08] LABS: PROTHROMBIN TIME 13.3 SECONDS (12.1-14.4)
[2019-03-02 13:19] LABS: BLOOD UREA NITROGEN 17 MG/DL (7-18); CALCIUM LEVEL 8.4 MG/DL (8.8-10.2); CARBON DIOXIDE LEVEL 26 MEQ/L (21-32); CHLORIDE LEVEL 106 MEQ/L (98-107); CREATININE FOR GFR 0.89 MG/DL (0.70-1.30); GLOMERULAR FILTRATION RATE > 60.0 (>49); GLUCOSE, FASTING 95 MG/DL (70-100); POTASSIUM SERUM 4.2 MEQ/L (3.5-5.1); SODIUM LEVEL 138 MEQ/L (136-145)
[2019-03-02 13:30] LABS: ALBUMIN 3.9 GM/DL (3.2-5.2); ALT/SGPT 19 U/L (12-78); BILIRUBIN,TOTAL 0.5 MG/DL (0.2-1.0); BLOOD UREA NITROGEN 15 MG/DL (7-18); CALCIUM LEVEL 8.7 MG/DL (8.8-10.2); CARBON DIOXIDE LEVEL 26 MEQ/L (21-32); CHLORIDE LEVEL 107 MEQ/L (98-107); CREATININE FOR GFR 0.92 MG/DL (0.70-1.30); FREE T4 0.93 NG/DL (0.76-1.46); GLOMERULAR FILTRATION RATE > 60.0 (>49); GLUCOSE, FASTING 92 MG/DL (70-100); POTASSIUM SERUM 4.2 MEQ/L (3.5-5.1); SODIUM LEVEL 139 MEQ/L (136-145); TOTAL PROTEIN 6.9 GM/DL (6.4-8.2); VITAMIN B12 LEVEL 478 PG/ML (247-911)
[2019-03-02 14:34] LABS: HEMOGLOBIN A1c 6.1 %
== END ==
LOC: M SFHCPLAZ 09:18
PROVIDERS: ATTEND Family Medicine
DX: E53.8 Deficiency of other specified B group vitamins (principal); E78.5 Hyperlipidemia, unspecified; R73.01 Impaired fasting glucose; Z79.01 Long term (current) use of anticoagulants

== ENCOUNTER → 2019-03-04 | Outpatient (REF) | payer MEDICARE ==
[2019-03-04 14:31] LABS: APPEARANCE, URINE HAZY (CLEAR); BACTERIA, URINE AUTO NEGATIVE (NEGATIVE); BILIRUBIN, URINE AUTO NEGATIVE (NEGATIVE); BLOOD, URINE BLOOD 2+ (NEGATIVE); COLOR, URINE AMBER (YELLOW); GLUCOSE, URINE (UA) AUTO NEGATIVE (NEGATIVE); KETONE, URINE AUTO TRACE mg/dL (NEGATIVE); LEUKOCYTE ESTERASE, URINE AUTO 2+ (NEGATIVE); MUCUS, URINE LARGE (NEGATIVE); NITRITE, URINE AUTO NEGATIVE (NEGATIVE); PROTEIN, URINE AUTO 2+ mg/dL (NEGATIVE); RBC, URINE AUTO 153 /HPF (0-3); SPECIFIC GRAVITY URINE AUTO 1.026 (1.002-1.035); SQUAMOUS EPITHELIAL CELL UR AU 0 /HPF (0-6); WBC, URINE AUTO 57 /HPF (0-3)
== END ==
LOC: M LAB REF 12:53
PROVIDERS: ATTEND Urology
DX: Z01.812 Encounter for preprocedural laboratory examination (principal); R82.998 Other abnormal findings in urine; R79.9 Abnormal finding of blood chemistry, unspecified

== ENCOUNTER → 2019-04-02 | Outpatient (CLI) | payer MEDICARE ==
--- NOTE | 2019-04-02 13:04 | REP ---
REASON: Genitourinary carcinoma. COMPARISON: Multiple, latest 12/13/2018 a contrast enhanced exam. Lack of intravenous contrast decreases sensitivity of the exam. There is no change in the lung bases. Limited evaluation of the liver, gallbladder, spleen, pancreas, adrenal glands, and left kidney show no gross abnormalities or significant changes from the prior exam. The patient is status post right nephrectomy and low density is seen occupying the right renal fossa likely the result of postoperative change. There is a small amount of fluid in the right renal fossa. Scattered colonic diverticula are seen particularly the descending colon. The bowel loops and their mesenteries are otherwise unremarkable. There is an anterior midline abdominal postoperative healed cicatrix. There is no anterior abdominal wall defect. CT PELVIS: There is sigmoid colon diverticulosis. There is a small amount of irregular density in the right hemipelvis which measures 3.9 cm and represents a change from the prior exam. This abuts the right seminal vesicle. There is no free fluid or free air in the pelvis. There is corpora amylacea. There is very subtle spiking of the right wall of the sigmoid colon which represents a change from the prior exam. Note is again made of previous right sided herniorrhaphy. Bone window technique throughout the exam shows no significant change in the appearance of the osseous structures. IMPRESSION: 1. Status post right nephrectomy with suspected postoperative changes in the postoperative bed as described above. This should be correlated clinically with appropriate followup. 2. There is a new irregular poorly defined density in the right hemipelvis of uncertain etiology. This has water Hounsfield unit readings. Postoperative change versus inflammation. This should be correlated clinically with appropriate followup. 3. There is evidence of mild inflammation of the right wall of the sigmoid colon, but without evidence of diverticulitis at this time. This should be correlated clinically with appropriate followup. 4. Other findings as described above. Electronically Signed by Gadiel Esquivel DO 04/02/2019 03:35 P
== END ==
LOC: M RAD 10:47
PROVIDERS: ATTEND Urology
DX: C66.1 Malignant neoplasm of right ureter (principal); K57.30 Diverticulosis of large intestine without perforation or abscess without bleeding; N42.89 Other specified disorders of prostate

== ENCOUNTER → 2019-06-05 | Outpatient (CLI) | payer MEDICARE ==
[~2019-06-05] MED LIST changes: +ACETAMINOPHEN; +NEUR100C PO; +PENI500T PO; -ROSU10TA5; +ROSU10TA6
[2019-06-05 14:10] LABS: BASO # 0.1 10^3/uL (0.0-0.2); BASO % 0.9 % (0.0-1.0); EOS # 0.4 10^3/uL (0.0-0.50); EOS % 4.2 % (0.0-3.0); HEMATOCRIT 42.9 % (42.0-52.0); HEMOGLOBIN 13.9 g/dl (13.5-17.5); LYMPH # 1.7 10^3/uL (1.5-4.5); LYMPH % 17.1 % (24.0-44.0); MEAN CORPUSCULAR HEMOGLOBIN 30.1 pg (27.0-33.0); MEAN CORPUSCULAR HGB CONC 32.4 g/dl (32.0-36.5); MEAN CORPUSCULAR VOLUME 92.9 fl (80.0-96.0); MONO # 0.8 10^3/uL (0.0-0.8); NEUTROPHILS % 69.5 % (36.0-66.0); PLATELET COUNT, AUTOMATED 276 10^3/uL (150-450); RED BLOOD COUNT 4.62 10^6/uL (4.30-6.10)
[2019-06-05 14:17] LABS: ALBUMIN 3.9 GM/DL (3.2-5.2); ALT/SGPT 21 U/L (12-78); BILIRUBIN,TOTAL 0.5 MG/DL (0.2-1.0); BLOOD UREA NITROGEN 18 MG/DL (7-18); CALCIUM LEVEL 8.7 MG/DL (8.8-10.2); CARBON DIOXIDE LEVEL 28 MEQ/L (21-32); CHLORIDE LEVEL 106 MEQ/L (98-107); CREATININE FOR GFR 1.25 MG/DL (0.70-1.30); GLOMERULAR FILTRATION RATE > 60.0 (>49); GLUCOSE, FASTING 117 MG/DL (70-100); POTASSIUM SERUM 4.8 MEQ/L (3.5-5.1); SODIUM LEVEL 138 MEQ/L (136-145); TOTAL PROTEIN 7.3 GM/DL (6.4-8.2)
== END ==
LOC: M SMT 10:23
PROVIDERS: ATTEND Urology
DX: C66.1 Malignant neoplasm of right ureter (principal)

== ENCOUNTER → 2019-07-01 | Outpatient (CLI) | payer MEDICARE ==
[2019-07-01 14:06] LABS: BASO # 0.1 10^3/uL (0.0-0.2); BASO % 0.6 % (0.0-1.0); EOS # 0.6 10^3/uL (0.0-0.5); EOS % 5.2 % (0.0-3.0); HEMATOCRIT 42.9 % (42.0-52.0); LYMPH # 2.1 10^3/uL (1.5-5.0); LYMPH % 17.6 % (24.0-44.0); MEAN CORPUSCULAR HEMOGLOBIN 29.9 pg (27.0-33.0); MEAN CORPUSCULAR HGB CONC 32.6 g/dl (32.0-36.5); MEAN CORPUSCULAR VOLUME 91.5 fl (80.0-96.0); NEUTROPHILS # 8.3 10^3/uL (1.5-8.5); NEUTROPHILS % 67.9 % (36.0-66.0); PLATELET COUNT, AUTOMATED 275 10^3/uL (150-450); RED BLOOD COUNT 4.69 10^6/uL (4.30-6.10); WHITE BLOOD COUNT 12.2 10^3/uL (4.0-10.0)
[2019-07-01 14:44] LABS: ALBUMIN 3.5 GM/DL (3.2-5.2); BILIRUBIN,TOTAL 0.6 MG/DL (0.2-1.0); CALCIUM LEVEL 8.8 MG/DL (8.8-10.2); CREATININE FOR GFR 1.33 MG/DL (0.70-1.30); FREE T4 1.04 NG/DL (0.76-1.46); GLOMERULAR FILTRATION RATE 58.4 (>49); POTASSIUM SERUM 4.5 MEQ/L (3.5-5.1); THYROID STIMULATING HORMONE 1.36 uIU/ML (0.358-3.740); TOTAL PROTEIN 6.8 GM/DL (6.4-8.2)
[2019-07-01 14:46] LABS: HEMOGLOBIN A1c 6.2 %
== END ==
LOC: M LAB 13:10
PROVIDERS: ATTEND Family Medicine
DX: E53.8 Deficiency of other specified B group vitamins (principal); E78.5 Hyperlipidemia, unspecified; R73.01 Impaired fasting glucose

== ENCOUNTER → 2019-07-10 | Outpatient (CLI) | payer MEDICARE ==
[~2019-07-10] MED LIST changes: -ACETAMINOPHEN; +ISOVUE-370 76% 100ML VIAL (Q9967) As Ordered ONE; -NEUR100C PO; -PENI500T PO
--- NOTE | 2019-07-10 10:24 | REP ---
CT of the chest with contrast Indication: Lung nodule. Comparison: CTA chest of 12/13/2018 and 11/12/2018. Technique: CT of the chest was performed from the thoracic inlet to the upper abdomen following the uneventful intravenous administration of 75 ml Isovue 370. Coronal and sagittal soft tissue reformats, axial lung reformats and coronal MIP imaging was provided. Findings: Lungs: There is centrilobular emphysema. There are several scattered noncalcified pulmonary nodules. A 4 mm right upper lobe nodule is unchanged from 11/12/2018 (image 28). A 7 mm of subpleural anteromedial right upper lobe nodule is unchanged from 11/12/2018 (image 36). A 2 mm right upper lobe nodule and 6 mm anteromedial nodule are unchanged from the 12/13/2018 study but new since 11/12/2018 (image 51, 52). A 7 mm peripheral right upper lobe nodule at the 11 o'clock position previously measured 4 mm on the 12/13/2018 examination (image 53). There is a 3 mm nodular opacity within the left lung base which is not significantly changed. There is no new suspicious nodule. There is similar scarring or atelectasis within the superior segment right lower lobe. There is no pleural effusion. Within the remainder of the chest, there is a similar appearance of nonenlarged axillary mediastinal lymph nodes. There is an unchanged prominence 2.5 x 1.5 cm right hilar lymph node the heart is normal in size. There is no pericardial effusion. The liver is diffusely hypodense, compatible with hepatic steatosis. There is no adrenal nodule. Note is made of ACDF hardware. No suspicious focal osseous lesion is identified. Impression: Several noncalcified right lung nodules measuring up to 7 mm, most of the which are unchanged from the 12/13/2018 examination. Given increase in size of a single right upper lobe nodule from 4 to 7 mm, recommend [address] follow up for stability. Electronically Signed by Purnima Beckman MD 07/10/2019 10:16 A
== END ==
LOC: M RAD 08:29
PROVIDERS: ATTEND Family Medicine
DX: R91.1 Solitary pulmonary nodule (principal)
CPT/HCPCS: 71260; Q9967

== ENCOUNTER 2019-09-17 10:05 | Emergency (ER) | payer MEDICARE, SELFPAY ==
[~2019-09-17] VITALS: Ht 177.8 cm; Wt 94.5 kg
[~2019-09-17 10:05] MED LIST changes: -ISOVUE-370 76% 100ML VIAL (Q9967) As Ordered ONE
[2019-09-17] MEDS ORDERED: ACETAMINOPHEN (10:10)
[2019-09-17] MEDS ORDERED: NEUR100C PO (11:23)
[2019-09-17] MEDS ORDERED: PENI500T PO (11:23)
[2019-09-17 11:32] VITALS: BP 155/79
== END 2019-09-17 11:33 | disposition home or self-care (01) ==
LOC: M ED 10:05
DX: K02.9 Dental caries, unspecified (principal); K08.409 Partial loss of teeth, unspecified cause, unspecified class; Z85.51 Personal history of malignant neoplasm of bladder; Z95.5 Presence of coronary angioplasty implant and graft; Z79.891 Long term (current) use of opiate analgesic; Z79.82 Long term (current) use of aspirin; Z79.899 Other long term (current) drug therapy

== ENCOUNTER → 2019-09-28 | Outpatient (CLI) | payer MEDICARE ==
[~2019-09-28] MED LIST changes: +ACETAMINOPHEN; +ISOVUE-370 76% 100ML VIAL (Q9967) As Ordered ONE; +NEUR100C PO; +PENI500T PO
--- NOTE | 2019-09-28 14:24 | REP ---
Clinical: Pulmonary nodule. Technique: Axial contrast enhanced images from the thoracic inlet to the upper abdomen with coronal and sagittal re-formations using 1 ml Isovue 370 intravenous contrast material. Comparison: 07/10/2019, 11/12/2018. Findings: Noncalcified pulmonary nodules in the right upper lobe measure up to approximately 7 mm and remain stable (images 36 - 51). Underlying chronic emphysematous changes and scattered scarring / fibrosis again noted and stable. No new nodule. No consolidation. No effusion. No pneumothorax. Tracheobronchial tree is patent. Mediastinal and right hilar adenopathy with lymph nodes measuring up to approximately 17 mm short axis diameter again noted. Thoracic aorta, pulmonary vasculature and heart/pericardium are relatively normal / stable. Atherosclerotic changes noted. No aortic aneurysm, cardiomegaly or pericardial effusion. Osseous structures are intact and without focal abnormality. Limited upper abdomen demonstrates normal bilateral adrenal glands. Impression: 1. Stable right upper lobe nodules up to 7 mm and stable mediastinal/hilar lymph nodes up to 17 mm short axis diameter. 2. No new acute mediastinal or pleuroparenchymal process appreciated. 3. Stable chronic emphysematous changes and scattered scarring. Electronically Signed by Lucas Huitron MD 09/28/2019 02:15 P
== END ==
LOC: M RAD 13:36
PROVIDERS: ATTEND Physician Assistant Medical
DX: R91.1 Solitary pulmonary nodule (principal)
CPT/HCPCS: 71260; Q9967

== ENCOUNTER → 2019-10-30 | Outpatient (CLI) | payer MEDICARE ==
[~2019-10-30] MED LIST changes: -ISOVUE-370 76% 100ML VIAL (Q9967) As Ordered ONE
[2019-10-30 14:00] LABS: BASO # 0.1 10^3/uL (0.0-0.2); EOS # 0.5 10^3/uL (0.0-0.5); EOS % 5.5 % (0.0-3.0); HEMATOCRIT 44.3 % (42.0-52.0); HEMOGLOBIN 13.8 g/dl (13.5-17.5); LYMPH # 1.8 10^3/uL (1.5-5.0); LYMPH % 21.2 % (24.0-44.0); MEAN CORPUSCULAR HEMOGLOBIN 29.2 pg (27.0-33.0); MEAN CORPUSCULAR HGB CONC 31.2 g/dl (32.0-36.5); MEAN CORPUSCULAR VOLUME 93.9 fl (80.0-96.0); MONO # 0.7 10^3/uL (0.0-0.8); MONO % 8.8 % (0.0-5.0); NEUTROPHILS # 5.2 10^3/uL (1.5-8.5); NEUTROPHILS % 63.1 % (36.0-66.0); PLATELET COUNT, AUTOMATED 281 10^3/uL (150-450); RED BLOOD COUNT 4.72 10^6/uL (4.30-6.10); WHITE BLOOD COUNT 8.3 10^3/uL (4.0-10.0)
[2019-10-30 14:13] LABS: ALBUMIN 3.5 GM/DL (3.2-5.2); BILIRUBIN,TOTAL 0.4 MG/DL (0.2-1.0); C REACTIVE PROTEIN QUANTITATIV 0.98 MG/DL (0.00-0.30); CALCIUM LEVEL 8.6 MG/DL (8.8-10.2); CHOLESTEROL RISK RATIO 3.937 (<5); CREATININE FOR GFR 1.35 MG/DL (0.70-1.30); GLOMERULAR FILTRATION RATE 57.4 (>49); POTASSIUM SERUM 4.8 MEQ/L (3.5-5.1)
[2019-10-30 14:15] LABS: PTH INTACT 73.7 PG/ML (18.5-88.0); TOTAL 25(OH) VITAMIN D 30.4 NG/ML (30.0-100.0)
[2019-10-30 14:19] LABS: HEMOGLOBIN A1c 6.3 %
[2019-10-30 14:38] LABS: ERYTHROCYTE SEDIMENTATION RATE 27 mm/hr (0-20)
[2019-11-03 00:06] LABS: ANA (HEP2) Negative (.); CYCLIC CITRULLINATED PEPTIDE > 250 units (0-19); INSULIN LEVEL 18.9 uIU/mL (2.6-24.9)
== END ==
LOC: M PLALAB 09:36
PROVIDERS: ATTEND Family Medicine
DX: M17.0 Bilateral primary osteoarthritis of knee (principal); N18.3 Chronic kidney disease, stage 3 (moderate); R73.01 Impaired fasting glucose; Z79.899 Other long term (current) drug therapy

== ENCOUNTER → 2019-11-26 | Outpatient (CLI) | payer MEDICARE ==
--- NOTE | 2019-11-26 10:56 | REP ---
RENAL ULTRASOUND WITH DUPLEX DOPPLER RENAL ARTERY EVALUATION: Real-time sonographic evaluation of the left kidney performed in this patient status post right nephrectomy. Left kidney is normal in size and echotexture measuring 12.6 x 6.1 x 5.9 cm. There is no hydronephrosis or mass identified. Urinary bladder is mildly distended and grossly unremarkable. Real-time ultrasound evaluation and duplex Doppler interrogation of left renal artery is performed. Peak systolic velocity of the abdominal aorta at the level of the left renal artery is 78 cm/sec. Peak systolic velocity of the proximal left renal artery is 109 cm/sec, renal to aortic ratio 1.4. Resistive indices are measured in the upper, middle, and lower thirds of the left kidney and range between 0.57 and 0.61. Acceleration times range between 0.025 and 0.042. IMPRESSION: No compelling duplex Doppler sonographic evidence of significant left renal artery stenosis. Electronically Signed by Michael Wood MD 11/27/2019 11:22 A
== END ==
LOC: M RAD 07:00
PROVIDERS: ATTEND Family Medicine
DX: N18.3 Chronic kidney disease, stage 3 (moderate) (principal); Z90.5 Acquired absence of kidney; I12.9 Hypertensive chronic kidney disease with stage 1 through stage 4 chronic kidney disease, or unspecified chronic kidney disease; E78.00 Pure hypercholesterolemia, unspecified; Z85.51 Personal history of malignant neoplasm of bladder

== ENCOUNTER → 2019-12-23 | Outpatient (CLI) | payer MEDICARE ==
[2019-12-23 11:39] LABS: CREATININE FOR GFR 1.38 MG/DL (0.70-1.30); POTASSIUM SERUM 4.8 MEQ/L (3.5-5.1)
== END ==
LOC: M LRY 09:27
PROVIDERS: ATTEND Urology
DX: C66.1 Malignant neoplasm of right ureter (principal); Z79.82 Long term (current) use of aspirin

== ENCOUNTER → 2019-12-23 | Outpatient (CLI) | payer MEDICARE ==
[2019-12-23 11:52] LABS: HEMATOCRIT 42.2 % (42.0-52.0); HEMOGLOBIN 13.6 g/dl (13.5-17.5); MEAN CORPUSCULAR HEMOGLOBIN 29.4 pg (27.0-33.0); MEAN CORPUSCULAR HGB CONC 32.2 g/dl (32.0-36.5); MEAN CORPUSCULAR VOLUME 91.1 fl (80.0-96.0); PLATELET COUNT, AUTOMATED 293 10^3/uL (150-450); RED BLOOD COUNT 4.63 10^6/uL (4.30-6.10); WHITE BLOOD COUNT 8.3 10^3/uL (4.0-10.0)
[2019-12-23 12:29] LABS: ALBUMIN 3.6 GM/DL (3.2-5.2); BILIRUBIN,DIRECT 0.2 MG/DL (0.0-0.2); BILIRUBIN,TOTAL 0.4 MG/DL (0.2-1.0); CHOLESTEROL RISK RATIO 3.866 (<5); TOTAL PROTEIN 6.9 GM/DL (6.4-8.2)
== END ==
LOC: M PLALAB 09:31
PROVIDERS: ATTEND Internal Medicine Interventional Cardiology
DX: E78.5 Hyperlipidemia, unspecified (principal); I25.2 Old myocardial infarction; I25.10 Atherosclerotic heart disease of native coronary artery without angina pectoris

== ENCOUNTER → 2020-02-16 | Outpatient (REF) | payer MEDICARE ==
[2020-02-16 13:22] LABS: BASO # 0.1 10^3/uL (0.0-0.2); BASO % 1.2 % (0.0-1.0); EOS # 0.3 10^3/uL (0.0-0.5); EOS % 3.7 % (0.0-3.0); LYMPH # 1.7 10^3/uL (1.5-5.0); LYMPH % 20.9 % (24.0-44.0); MEAN CORPUSCULAR HEMOGLOBIN 29.5 pg (27.0-33.0); MEAN CORPUSCULAR HGB CONC 32.6 g/dl (32.0-36.5); MEAN CORPUSCULAR VOLUME 90.5 fl (80.0-96.0); MONO # 0.6 10^3/uL (0.0-0.8); MONO % 7.5 % (0.0-5.0); NEUTROPHILS # 5.5 10^3/uL (1.5-8.5); NEUTROPHILS % 66.2 % (36.0-66.0); PLATELET COUNT, AUTOMATED 282 10^3/uL (150-450); RED BLOOD COUNT 4.75 10^6/uL (4.30-6.10); WHITE BLOOD COUNT 8.3 10^3/uL (4.0-10.0)
[2020-02-16 13:43] LABS: ALBUMIN 3.9 GM/DL (3.2-5.2); ALT/SGPT 41 U/L (12-78); BILIRUBIN,TOTAL 0.4 MG/DL (0.2-1.0); BLOOD UREA NITROGEN 19 MG/DL (7-18); C REACTIVE PROTEIN QUANTITATIV 0.75 MG/DL (0.00-0.30); CALCIUM LEVEL 8.7 MG/DL (8.8-10.2); CARBON DIOXIDE LEVEL 28 MEQ/L (21-32); CHLORIDE LEVEL 109 MEQ/L (98-107); CREATININE FOR GFR 1.27 MG/DL (0.70-1.30); GLOMERULAR FILTRATION RATE > 60.0 (>49); GLUCOSE, FASTING 94 MG/DL (70-100); POTASSIUM SERUM 4.8 MEQ/L (3.5-5.1); SODIUM LEVEL 140 MEQ/L (136-145); TOTAL PROTEIN 7.4 GM/DL (6.4-8.2)
[2020-02-16 14:00] LABS: TOTAL PROTEIN,RANDOM URINE 38.3 MG/DL (0.0-12.0)
[2020-02-16 14:04] LABS: ERYTHROCYTE SEDIMENTATION RATE 29 mm/hr (0-20)
[2020-02-16 14:13] LABS: HEMOGLOBIN A1c 6.5 %
[2020-02-17 10:59] LABS: HEPATITIS B SURFACE ANTIGEN NEGATIVE (NEGATIVE)
[2020-02-17 11:06] LABS: HEPATITIS C VIRUS ABY INDEX 0.1 INDEX (<0.8)
== END ==
LOC: M PLALAB 10:05
PROVIDERS: ATTEND Family Medicine
DX: M06.9 Rheumatoid arthritis, unspecified (principal)

== ENCOUNTER → 2020-04-19 | Outpatient (REF) | payer MEDICARE ==
[2020-04-19 10:58] LABS: HEMOGLOBIN A1c 6.4 %
[2020-04-19 11:01] LABS: ALBUMIN 3.8 GM/DL (3.2-5.2); BILIRUBIN,TOTAL 0.6 MG/DL (0.2-1.0); C REACTIVE PROTEIN QUANTITATIV 1.02 MG/DL (0.00-0.30); CREATININE FOR GFR 1.33 MG/DL (0.70-1.30); GLOMERULAR FILTRATION RATE 58.2 (>49); POTASSIUM SERUM 4.8 MEQ/L (3.5-5.1); TOTAL PROTEIN 7.2 GM/DL (6.4-8.2)
[2020-04-19 14:05] LABS: TOTAL 25(OH) VITAMIN D 82.9 NG/ML (30.0-100.0)
== END ==
LOC: M PLALAB 09:02
PROVIDERS: ATTEND Family Medicine
DX: E55.9 Vitamin D deficiency, unspecified (principal); M06.9 Rheumatoid arthritis, unspecified; R73.01 Impaired fasting glucose; Z12.5 Encounter for screening for malignant neoplasm of prostate; E53.8 Deficiency of other specified B group vitamins
CPT/HCPCS: 36415; 80053; 82306; 82607; 83036; 83525; 83970; 85652; 86140; G0103

== ENCOUNTER → 2020-04-20 | Outpatient (CLI) | payer MEDICARE ==
[~2020-04-20] MED LIST changes: +ISOVUE-370 76% 100ML VIAL As Ordered ONE
--- NOTE | 2020-04-21 00:35 | REP ---
REASON: Followup lung nodule. COMPARISON: Multiple, latest 09/28/2019. CONTRAST: 100 mL Isovue-370. There is mediastinal and right hilar adenopathy, status quo. There are no pleural or pericardial effusions. There is no change in the imaged upper abdomen or imaged osseous structures. Evaluation of the lung rojas shows two stable right upper lobe nodules, each measuring 7 mm. There are emphysematous changes throughout the lung rojas, status quo. There are no new abnormal nodules, masses, or opacities. IMPRESSION: Stable CT examination of the chest with findings as described above. According to the revised Fleischner Society criteria, continued surveillance is required. Electronically Signed by Gadiel Esquivel DO 04/21/2020 08:17 A
== END ==
LOC: M RAD 16:01
PROVIDERS: ATTEND Family Medicine
DX: R91.8 Other nonspecific abnormal finding of lung field (principal); R59.0 Localized enlarged lymph nodes; J43.9 Emphysema, unspecified
CPT/HCPCS: 71260; Q9967

== ENCOUNTER → 2020-05-10 | Outpatient (CLI) | payer MEDICARE ==
[~2020-05-10] MED LIST changes: +E-Z-GAS II EFFERVESCENT PACKET (SODIUM BICARB./CITRIC ACID/SIMETHICONE) As Ordered ONE; +E-Z-HD 98% w/w 340GM SUSP BTL As Ordered ONE; +E-Z-PAQUE 96% w/w SUSP 176GM BTL As Ordered ONE; -ISOVUE-370 76% 100ML VIAL As Ordered ONE; +PANT40TA29; -PANT40TA3
--- NOTE | 2020-05-10 22:54 | REP ---
Examination Requested: Upper G.I. Series With KUB Reason For Exam: Dyspepsia Upper GI Air Contrast The procedure was performed by PRIYA Sarabia, under the direct supervision of Dr. Wood. The images were reviewed with Dr. Wood. The smoke control supervisor film shows no organomegaly or pathological masses. The intestinal gas pattern appears normal. There are surgical clips in the right lower pelvis most likely from hernia surgery. There is a fusion of C5-C7. Liquid barium and gas producing crystals were given in the erect position as well as liquid barium in the prone oblique position in order to perform a double contrast upper GI examination. The oral and pharyngeal stages of deglutition were unremarkable. Esophageal transport is efficient and there is no esophagitis, stricture, or mucosal ring noted. There is no hiatal hernia. Gastroesophageal reflux was not visualized during this exam. The stomach ulrich are normally outlined. The rugal folds are smooth and regular. There is no gastritis, neoplasm, ulcer disease noted. The duodenal ulrich are normally outlined. The mucosal folds are smooth and regular. There is no duodenitis, peptic ulcer disease, or neoplasm noted. The visualized portion of the proximal small bowel appears normal in course and caliber. Impression: 1. Unremarkable upper GI. 0.6 minutes of fluoroscopy time was utilized for this procedure. Some fluoroscopic images are performed with last image hold technology. These images require no additional radiation. Reviewed by PRIYA Vera 05/10/2020 04:11 P Electronically Signed by Michael Wood MD 05/10/2020 10:45 P
== END ==
LOC: M RAD 08:03
PROVIDERS: ATTEND Family Medicine
DX: R10.13 Epigastric pain (principal)

== ENCOUNTER → 2020-05-27 | Outpatient (REF) | payer MEDICARE ==
[~2020-05-27] MED LIST changes: -E-Z-GAS II EFFERVESCENT PACKET (SODIUM BICARB./CITRIC ACID/SIMETHICONE) As Ordered ONE; -E-Z-HD 98% w/w 340GM SUSP BTL As Ordered ONE; -E-Z-PAQUE 96% w/w SUSP 176GM BTL As Ordered ONE
[2020-06-25 03:04] LABS: BASO # 0.1 10^3/uL (0.0-0.2); BASO % 1.4 % (0.0-1.0); EOS # 0.3 10^3/uL (0.0-0.5); EOS % 4.7 % (0.0-3.0); HEMATOCRIT 43.7 % (42.0-52.0); HEMOGLOBIN 14.2 g/dl (13.5-17.5); LYMPH # 1.3 10^3/uL (1.5-5.0); LYMPH % 19.5 % (24.0-44.0); MEAN CORPUSCULAR HEMOGLOBIN 30.1 pg (27.0-33.0); MEAN CORPUSCULAR HGB CONC 32.5 g/dl (32.0-36.5); MEAN CORPUSCULAR VOLUME 92.6 fl (80.0-96.0); MONO # 0.7 10^3/uL (0.0-0.8); MONO % 10.9 % (0.0-5.0); NEUTROPHILS # 4.1 10^3/uL (1.5-8.5); NEUTROPHILS % 63.2 % (36.0-66.0); PLATELET COUNT, AUTOMATED 248 10^3/uL (150-450); RED BLOOD COUNT 4.72 10^6/uL (4.30-6.10); WHITE BLOOD COUNT 6.4 10^3/uL (4.0-10.0)
[2020-07-14 13:47] LABS: ALBUMIN 3.8 GM/DL (3.2-5.2); BILIRUBIN,TOTAL 0.4 MG/DL (0.2-1.0); CALCIUM LEVEL 8.9 MG/DL (8.8-10.2); CREATININE FOR GFR 1.56 MG/DL (0.70-1.30); GLOMERULAR FILTRATION RATE 48.4 (>49); POTASSIUM SERUM 4.6 MEQ/L (3.5-5.1)
== END ==
LOC: M PLALAB 13:54
PROVIDERS: ATTEND Urology
DX: C66.1 Malignant neoplasm of right ureter (principal)

== ENCOUNTER → 2020-06-07 | Outpatient (REF) | payer MEDICARE | LOC: M SFHCPLAZ 12:41 | PROVIDERS: ATTEND Family Medicine | DX: D04.9 Carcinoma in situ of skin, unspecified (principal) | CPT/HCPCS: 88305; G0463 ==

== ENCOUNTER → 2020-06-29 | Outpatient (CLI) | payer MEDICARE ==
[2020-06-29 15:15] LABS: BASO # 0.1 10^3/uL (0.0-0.2); BASO % 1.1 % (0.0-1.0); EOS # 0.4 10^3/uL (0.0-0.5); EOS % 6.1 % (0.0-3.0); HEMATOCRIT 41.9 % (42.0-52.0); LYMPH # 1.3 10^3/uL (1.5-5.0); LYMPH % 20.4 % (24.0-44.0); MEAN CORPUSCULAR HEMOGLOBIN 31.1 pg (27.0-33.0); MEAN CORPUSCULAR HGB CONC 33.4 g/dl (32.0-36.5); MEAN CORPUSCULAR VOLUME 93.1 fl (80.0-96.0); MONO # 0.6 10^3/uL (0.0-0.8); MONO % 9.8 % (0.0-5.0); NEUTROPHILS # 4.1 10^3/uL (1.5-8.5); NEUTROPHILS % 62.3 % (36.0-66.0); PLATELET COUNT, AUTOMATED 209 10^3/uL (150-450); WHITE BLOOD COUNT 6.6 10^3/uL (4.0-10.0)
[2020-06-29 15:55] LABS: ALBUMIN 3.7 GM/DL (3.2-5.2); ALT/SGPT 34 U/L (12-78); BILIRUBIN,TOTAL 0.5 MG/DL (0.2-1.0); BLOOD UREA NITROGEN 19 MG/DL (7-18); CALCIUM LEVEL 8.9 MG/DL (8.8-10.2); CARBON DIOXIDE LEVEL 25 MEQ/L (21-32); CHLORIDE LEVEL 105 MEQ/L (98-107); CREATININE FOR GFR 1.23 MG/DL (0.70-1.30); GLOMERULAR FILTRATION RATE > 60.0 (>49); GLUCOSE, FASTING 90 MG/DL (70-100); PROSTATIC SPECIFIC AG MONITOR 4.12 NG/ML (< 4.00); SODIUM LEVEL 138 MEQ/L (136-145); TOTAL PROTEIN 6.8 GM/DL (6.4-8.2)
== END ==
LOC: M PLALAB 12:27
PROVIDERS: ATTEND Urology
DX: C66.1 Malignant neoplasm of right ureter (principal); N40.1 Benign prostatic hyperplasia with lower urinary tract symptoms

== ENCOUNTER → 2020-08-17 | Outpatient (REF) | payer MEDICARE | LOC: M LAB REF 17:38 | PROVIDERS: ATTEND Dermatology | DX: D22.20 Melanocytic nevi of unspecified ear and external auricular canal (principal) | CPT/HCPCS: 11102; 14060; 17311; 88305; G0463 ==

== ENCOUNTER → 2020-11-25 | Outpatient (REF) | payer MEDICARE ==
[2020-11-25 13:43] LABS: BASO # 0.1 10^3/uL (0.0-0.2); BASO % 0.8 % (0.0-1.0); EOS # 0.4 10^3/uL (0.0-0.5); EOS % 4.4 % (0.0-3.0); HEMOGLOBIN 13.8 g/dl (13.5-17.5); LYMPH # 1.4 10^3/uL (1.5-5.0); LYMPH % 16.3 % (24.0-44.0); MEAN CORPUSCULAR HEMOGLOBIN 28.8 pg (27.0-33.0); MEAN CORPUSCULAR HGB CONC 31.4 g/dl (32.0-36.5); MEAN CORPUSCULAR VOLUME 91.7 fl (80.0-96.0); MONO # 0.7 10^3/uL (0.0-0.8); MONO % 8.5 % (0.0-5.0); NEUTROPHILS % 69.5 % (36.0-66.0); PLATELET COUNT, AUTOMATED 328 10^3/uL (150-450); WHITE BLOOD COUNT 8.7 10^3/uL (4.0-10.0)
[2020-11-25 14:17] LABS: ALBUMIN 3.7 GM/DL (3.2-5.2); ALT/SGPT 22 U/L (12-78); BILIRUBIN,TOTAL 0.5 MG/DL (0.2-1.0); BLOOD UREA NITROGEN 18 MG/DL (7-18); C REACTIVE PROTEIN QUANTITATIV 1.32 MG/DL (0.00-0.30); CALCIUM LEVEL 9.4 MG/DL (8.8-10.2); CARBON DIOXIDE LEVEL 29 MEQ/L (21-32); CHLORIDE LEVEL 105 MEQ/L (98-107); CHOLESTEROL LEVEL 110 MG/DL (<200); CHOLESTEROL RISK RATIO 2.972 (<5); CPK CREATINE PHOSPHOKINASE 88 U/L (39-308); CREATININE FOR GFR 1.29 MG/DL (0.70-1.30); FREE T4 0.97 NG/DL (0.76-1.46); GLOMERULAR FILTRATION RATE > 60.0 (>49); GLUCOSE, FASTING 88 MG/DL (70-100); HDL CHOLESTEROL 37 MG/DL (>40); LDL CHOLESTEROL 51 MG/DL (<100); NON-HDL-C 73 MG/DL; POTASSIUM SERUM 4.5 MEQ/L (3.5-5.1); SODIUM LEVEL 141 MEQ/L (136-145); TOTAL PROTEIN 7.1 GM/DL (6.4-8.2); TRIGLYCERIDES LEVEL 110 MG/DL (<150)
[2020-11-26 20:07] LABS: ANA (HEP2) Negative (.); PSA % FREE 14.8 % (.); PSA FREE 0.68 ng/mL; PSA TOTAL 4.6 ng/mL (0.0-4.0)
== END ==
LOC: M PLALAB 09:11
PROVIDERS: ATTEND Family Medicine
DX: M06.9 Rheumatoid arthritis, unspecified (principal); E78.5 Hyperlipidemia, unspecified; Z12.5 Encounter for screening for malignant neoplasm of prostate

== ENCOUNTER → 2021-01-03 | Outpatient (CLI) | payer MEDICARE ==
[~2021-01-03] MED LIST changes: +ISOVUE-370 76% 100ML VIAL As Ordered ONE
--- NOTE | 2021-01-03 10:14 | REP ---
INDICATION: LUNG NODULE COMPARISON: Multiple prior examinations dating through 11/12/2018 TECHNIQUE: Axial contrast enhanced images from the thoracic inlet to the upper abdomen with coronal and sagittal reformations using 75 ml Isovue 370 intravenous contrast material. [address] CT examination was performed using the following dose reduction techniques: Automated exposure control, adjustment of mA and/or kv according to the patient's size, and use of iterative reconstruction technique. FINDINGS: Advanced chronic emphysematous changes with scattered scarring and mild bronchiectasis again noted bilaterally and relatively unchanged. Stable 7 mm noncalcified nodules in the right upper lobe (series 201; images 56, 55). 3 mm nodule is also identified in the posterior aspect of the right upper lobe which is minimally decreased in size (series 201, image 34). No acute consolidation, new nodule or mass lesion. No effusion. No pneumothorax. Mediastinal and hilar adenopathy essentially unchanged. Further evaluation demonstrates mild stable atherosclerotic changes to the thoracic aorta and coronary arteries without aortic aneurysm or cardiomegaly. No pericardial effusion. Thyroid gland is grossly unremarkable. Surrounding musculoskeletal structures without acute osseous abnormality. Limited upper abdomen demonstrates normal bilateral adrenal glands. IMPRESSION: Advanced relatively stable emphysematous changes. Few small stable noncalcified nodules along with mediastinal/hilar adenopathy unchanged through 11/12/2018. <Electronically signed by Lucas Huitron > 01/03/21 [id number]
== END ==
LOC: M RAD 08:49
PROVIDERS: ATTEND Family Medicine
DX: R91.1 Solitary pulmonary nodule (principal)
CPT/HCPCS: 71260; Q9967

== ENCOUNTER 2021-03-26 13:03 | Emergency (ER) | payer MEDICARE ==
[~2021-03-26] VITALS: Ht 177.8 cm; Wt 90.9 kg
[~2021-03-26 13:03] MED LIST changes: -ISOVUE-370 76% 100ML VIAL As Ordered ONE
[2021-03-26] MEDS ORDERED: HYDR200T3 (13:16)
[2021-03-26] MEDS ORDERED: TRIA2LOT (13:16)
[2021-03-26] MEDS ORDERED: ALBU8.5H (13:16)
[2021-03-26] MEDS ORDERED: NS 1,000 ML IV ONE (13:35)
[2021-03-26] MEDS ORDERED: COMBIVENT RESPIMAT 100-20MCG INHALER 4GM INH ONE (13:40)
[2021-03-26 14:08] LABS: HEMATOCRIT 32.3 % (42.0-52.0); HEMOGLOBIN 10.9 g/dl (13.5-17.5); MEAN CORPUSCULAR HEMOGLOBIN 30.3 pg (27.0-33.0); MEAN CORPUSCULAR HGB CONC 33.7 g/dl (32.0-36.5); MEAN CORPUSCULAR VOLUME 89.7 fl (80.0-96.0); PLATELET COUNT, AUTOMATED 366 10^3/uL (150-450); WHITE BLOOD COUNT 2.2 10^3/uL (4.0-10.0)
--- NOTE | 2021-03-26 14:23 | REP ---
INDICATION: DYSPNEA/COUGH COMPARISON: 12/24/2018 TECHNIQUE: Portable AP view of the chest FINDINGS: The mediastinum and cardiac silhouette are stable and within normal limits for portable technique. [id number] identified with tip in the SVC. The lung rojas are clear without acute consolidation, effusion, or pneumothorax. Skeletal structures are intact. IMPRESSION: No acute cardiopulmonary process appreciated. <Electronically signed by Lucas Huitron > 03/26/21 [id number]
[2021-03-26 14:45] LABS: ALBUMIN 3.6 GM/DL (3.2-5.2); ALT/SGPT 31 U/L (12-78); BILIRUBIN,DIRECT 0.1 MG/DL (0.0-0.2); BILIRUBIN,TOTAL 0.5 MG/DL (0.2-1.0); BLOOD UREA NITROGEN 17 MG/DL (7-18); CALCIUM LEVEL 8.9 MG/DL (8.8-10.2); CARBON DIOXIDE LEVEL 28 MEQ/L (21-32); CHLORIDE LEVEL 100 MEQ/L (98-107); CK-MB VALUE MASS < 1.0 NG/ML (<3.6); CPK CREATINE PHOSPHOKINASE 67 U/L (39-308); GLOMERULAR FILTRATION RATE 50.5 (>49); GLUCOSE, FASTING 113 MG/DL (70-100); MB/CK RELATIVE INDEX 1.49 (< OR =4); NT-PRO BNP 1339 PG/ML (<125); POTASSIUM SERUM 4.2 MEQ/L (3.5-5.1); SODIUM LEVEL 135 MEQ/L (136-145); THYROXINE (T4) 10.9 UG/DL (4.5-12.0); TOTAL PROTEIN 6.4 GM/DL (6.4-8.2); TROPONIN I < 0.02 NG/ML (< 0.10)
[2021-03-26 14:46] LABS: ATYPICAL LYMPH 3 % (0-5); BASOPHILS 1 % (0-1); EOSINOPHILS 8 % (0-3); LYMPHOCYTES 21 % (16-44); MONOCYTES 2 % (0-5); NEUTROPHILS 65 % (28-66)
[2021-03-26 14:47] LABS: PLATELET ESTIMATE NORMAL (NORMAL)
--- NOTE | 2021-03-26 15:42 | REP ---
INDICATION: cough, productive, on chemo COMPARISON: 01/03/2021 TECHNIQUE: Axial noncontrast images from the thoracic inlet to the upper abdomen with coronal and sagittal reformations. This CT examination was performed using the following dose reduction techniques: Automated exposure control, adjustment of mA and/or kv according to the patient's size, and use of iterative reconstruction technique. FINDINGS: Chronic interstitial and emphysematous changes along with minimal linear atelectasis and dependent changes. 6.5 mm noncalcified nodule along the anterior margin of right upper lobe (series 201; image 50) and 4 mm nodule the posterior aspect of the right upper lobe (series 201; image 27) are relatively unchanged when compared through 01/03/2021, but do appear slightly more prominent when compared through examinations dating 11/25/2018. No new acute consolidation, suspicious nodule or mass lesion. No pleural effusion. No pneumothorax. Stable mediastinal lymph nodes noted. Atherosclerotic changes to the thoracic aorta and coronary arteries without aortic aneurysm or cardiomegaly. No pericardial effusion. IMPRESSION: 1. Chronic interstitial and emphysematous changes with minimal linear dependent and atelectatic changes. No focal consolidation or effusion. 2. Two noncalcified nodular densities in the right lung as described above which appears slightly more prominent when compared through examinations dating to 11/25/2018. While this is nonspecific, given the patient's history of malignancy slow growing lesions cannot be excluded. Consider 6 month follow-up or PET-CT to evaluate for possible hypermetabolic activity. <Electronically signed by Lucas Huitron > 03/26/21 [id number]
[2021-03-26] MEDS ORDERED: COMBAER6 INH (16:44)
[2021-03-26 17:04] VITALS: BP 152/81
--- NOTE | 2021-03-27 08:15 | ED PDOC ---
Post-Departure Follow-Up radiology report faxed to Danae Hines MD March 27, 2021 08:15
--- NOTE | 2021-03-27 09:25 | ECGEPIP ---
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
== END 2021-03-26 17:07 | disposition home or self-care (01) ==
LOC: M ED 13:03
DX: R91.8 Other nonspecific abnormal finding of lung field (principal); E86.0 Dehydration; K70.0 Alcoholic fatty liver; J44.1 Chronic obstructive pulmonary disease with (acute) exacerbation; N18.30 Chronic kidney disease, stage 3 unspecified; I10 Essential (primary) hypertension; F17.200 Nicotine dependence, unspecified, uncomplicated; Z79.51 Long term (current) use of inhaled steroids; Z79.82 Long term (current) use of aspirin; Z79.891 Long term (current) use of opiate analgesic; Z79.899 Other long term (current) drug therapy

== ENCOUNTER → 2021-06-21 | Outpatient (CLI) | payer MEDICARE, OTHER ==
[~2021-06-21] MED LIST changes: +ALBU8.5H; +COMBAER6 INH; +HYDR200T3; +TRIA2LOT
== END ==
LOC: M LABSMTC 12:16
PROVIDERS: ATTEND Pediatrics
DX: Z11.52 Encounter for screening for COVID-19 (principal)

== ENCOUNTER → 2021-07-21 | Outpatient (CLI) | payer OTHER ==
[2021-07-21 15:16] LABS: BASO # 0.1 10^3/uL (0.0-0.2); BASO % 1.1 % (0.0-1.0); EOS # 0.2 10^3/uL (0.0-0.5); EOS % 3.2 % (0.0-3.0); HEMATOCRIT 43.2 % (42.0-52.0); HEMOGLOBIN 14.4 g/dl (13.5-17.5); LYMPH # 1.1 10^3/uL (1.5-5.0); LYMPH % 16.4 % (24.0-44.0); MEAN CORPUSCULAR HEMOGLOBIN 31.6 pg (27.0-33.0); MEAN CORPUSCULAR HGB CONC 33.3 g/dl (32.0-36.5); MEAN CORPUSCULAR VOLUME 94.7 fl (80.0-96.0); MONO # 0.6 10^3/uL (0.0-0.8); NEUTROPHILS # 4.6 10^3/uL (1.5-8.5); NEUTROPHILS % 69.8 % (36.0-66.0); PLATELET COUNT, AUTOMATED 203 10^3/uL (150-450); RED BLOOD COUNT 4.56 10^6/uL (4.30-6.10); WHITE BLOOD COUNT 6.6 10^3/uL (4.0-10.0)
[2021-07-21 15:53] LABS: ALBUMIN 3.9 GM/DL (3.2-5.2); ALT/SGPT 29 U/L (12-78); BILIRUBIN,TOTAL 0.4 MG/DL (0.2-1.0); BLOOD UREA NITROGEN 24 MG/DL (7-18); C REACTIVE PROTEIN QUANTITATIV 0.35 MG/DL (0.00-0.30); CALCIUM LEVEL 8.9 MG/DL (8.8-10.2); CARBON DIOXIDE LEVEL 27 MEQ/L (21-32); CHLORIDE LEVEL 106 MEQ/L (98-107); CREATININE FOR GFR 1.44 MG/DL (0.70-1.30); GLOMERULAR FILTRATION RATE 52.9 (>49); GLUCOSE, FASTING 99 MG/DL (70-100); POTASSIUM SERUM 4.5 MEQ/L (3.5-5.1); SODIUM LEVEL 138 MEQ/L (136-145); TOTAL PROTEIN 6.9 GM/DL (6.4-8.2)
[2021-07-21 16:16] LABS: HEPATITIS B SURFACE ANTIGEN NEGATIVE (NEGATIVE)
[2021-07-21 16:45] LABS: HEPATITIS C VIRUS ABY INDEX 0.1 INDEX (<0.8)
[2021-07-21 17:53] LABS: HEMOGLOBIN A1c 5.4 %
== END ==
LOC: M PLALAB 12:28
PROVIDERS: ATTEND Family Medicine
DX: M06.9 Rheumatoid arthritis, unspecified (principal); R73.01 Impaired fasting glucose

== ENCOUNTER → 2021-08-11 | Outpatient (CLI) | payer OTHER | LOC: M LABSMTC 10:43 | PROVIDERS: ATTEND Pediatrics | DX: Z20.822 Contact with and (suspected) exposure to COVID-19 (principal) | CPT/HCPCS: C9803; U0003 ==

== ENCOUNTER 2021-10-10 17:07 | Inpatient (IN) | payer OTHER ==
[~2021-10-10] VITALS: Ht 177.8 cm; Wt 83.7 kg
[2021-10-10] MEDS ORDERED: MORPHINE 4 MG/ML 1ML VIAL/SYRINGE (J2270) IV ONE ×2 (18:45→21:50)
[2021-10-10] MEDS ORDERED: MORPHINE 4 MG/ML 1ML VIAL/SYRINGE (J2270) As Ordered ONE (18:47)
[2021-10-10 19:13] LABS: BASO # 0.1 10^3/uL (0.0-0.2); BASO % 0.5 % (0.0-1.0); EOS # 0.1 10^3/uL (0.0-0.5); HEMATOCRIT 28.5 % (42.0-52.0); LYMPH # 1.3 10^3/uL (1.5-5.0); LYMPH % 10.1 % (24.0-44.0); MEAN CORPUSCULAR HEMOGLOBIN 29.1 pg (27.0-33.0); MEAN CORPUSCULAR HGB CONC 31.6 g/dl (32.0-36.5); MEAN CORPUSCULAR VOLUME 92.2 fl (80.0-96.0); MONO # 1.1 10^3/uL (0.0-0.8); MONO % 8.7 % (2.0-8.0); PLATELET COUNT, AUTOMATED 426 10^3/uL (150-450); RED BLOOD COUNT 3.09 10^6/uL (4.30-6.10); WHITE BLOOD COUNT 12.6 10^3/uL (4.0-10.0)
[2021-10-10 19:42] LABS: ALBUMIN 2.5 GM/DL (3.2-5.2); BILIRUBIN,DIRECT 0.1 MG/DL (0.0-0.2); BILIRUBIN,TOTAL 0.3 MG/DL (0.2-1.0); TOTAL PROTEIN 6.5 GM/DL (6.4-8.2)
[2021-10-10] MEDS ORDERED: cefTRIAXone SOD 1 GM in D5W MINI-BAG PLUS 50 ML IV ONE (20:10)
[2021-10-10] MEDS ORDERED: NS 500 ML IV ONE (20:10)
[2021-10-10] MEDS ORDERED: HYDROXYCHLOROQUINE 200 MG TAB PO SCH (21:00)
[2021-10-10] MEDS: SIMETHICONE 80MG CHEW TAB PO SCH (21:00)
[2021-10-10] MEDS ORDERED: METOPROLOL SUCC (TopROL XL) 50MG **XL** TAB PO SCH (21:00)
--- NOTE | 2021-10-10 21:33 | REPVR ---
PROCEDURE INFORMATION: Exam: CT Abdomen And Pelvis Without Contrast Exam date and time: 10/10/2021 8:05 PM Age: 61 years old Clinical indication: Abdominal pain; Flank; Left; Additional info: L flank pain, hematuria concern for stones. Prior R nephrect TECHNIQUE: Imaging protocol: Computed tomography of the abdomen and pelvis without contrast. Radiation optimization: All CT scans at this facility use at least one of these dose optimization techniques: automated exposure control; mA and/or kV adjustment per patient size (includes targeted exams where dose is matched to clinical indication); or iterative reconstruction. COMPARISON: CT ABD PELVIS W/O CONTRAST 04/02/2019 10:57 AM FINDINGS: Tubes, catheters and devices: A العلي catheter is present in the ureteral conduit. The conduit is nondilated. Liver: Unremarkable. No mass. Gallbladder and bile ducts: Normal. No calcified stones. No ductal dilation. Pancreas: Normal. No ductal dilation. Spleen: Normal. No splenomegaly. Adrenal glands: Normal. No mass. Kidneys and ureters: Prior right nephrectomy. The left kidney is enlarged and edematous. Mild perinephric and periureteral edema. A left ureteral stent extends into a ureteral conduit. No hydroureter. No urinary tract calculi. Stomach and bowel: There is colonic diverticulosis without evidence of diverticulitis. Postoperative changes in the right lower quadrant small bowel. Small bowel is otherwise unremarkable. No bowel obstruction. Appendix: No evidence of appendicitis. Intraperitoneal space: Trace pelvic free fluid. Vasculature: Fusiform infrarenal abdominal aortic aneurysm measuring up to 3.6 cm. Advanced aortoiliac atherosclerotic disease. Lymph nodes: Unremarkable. No enlarged lymph nodes. Urinary bladder: There has been prior cystectomy. There is a 4.3 cm cystic mass in the right anterior pelvis adjacent to the ureteral conduit which is new since the prior exam. Reproductive: Prior prostatectomy and resection of the seminal vesicles. Bones/joints: There are degenerative changes in the spine and pelvis. Soft tissues: Small fat containing umbilical hernia. IMPRESSION: 1. Mildly enlarged left kidney with perinephric and periureteral edema suggesting urinary tract infection. 2. Left ureteral stent in expected location extending into the ileal conduit. No hydronephrosis or obstructing calculi. 3. Interval cystectomy. 4. New 4.3 cm cystic mass in the right anterior pelvis adjacent to the ileal conduit of uncertain significance. No other masses are seen. Comparison with any more recent imaging or MRI follow-up is recommended. 5. Colonic diverticulosis without evidence of diverticulitis. 6. Infrarenal abdominal aortic aneurysm. Electronically signed by: Johnathan Thakkar On 10/10/2021 21:32:37 PM
[2021-10-10] MEDS ORDERED: METOCLOPRAMIDE INJ 10MG/2ML VIAL (J2765 PER 1) IV ONE (21:50)
[2021-10-10] MEDS ORDERED: PIPERACILLIN/TAZOBACTAM SOD 4.5 GM in D5W MINI-BAG PLUS 50 ML IV ONE (22:00)
[2021-10-10] MEDS ORDERED: OXYC1TAB23 PO (22:57)
[2021-10-10] MEDS ORDERED: PROAAER10 INH (22:57)
[2021-10-10] MEDS ORDERED: SIME80CH6 PO (22:57)
[2021-10-10] MEDS ORDERED: TUMS500C PO (22:57)
[2021-10-10] MEDS ORDERED: ACET-897 PO (22:57)
[2021-10-10] MEDS ORDERED: METO1TAB7 PO (22:57)
[2021-10-10] MEDS ORDERED: HYDR200T3 PO (22:57)
[2021-10-10] MEDS ORDERED: SERT25TA21 PO (22:57)
[2021-10-10] MEDS ORDERED: HOME MED LIST COMPLETE! XX SCH (23:00)
[2021-10-11] MEDS ORDERED: ONDANSETRON 4MG/2ML VIAL IV PRN (00:05)
[2021-10-11 00:19] LABS: CHOLESTEROL RISK RATIO 6.333 (<5); PERCENT SATURATION 14.5 % (19.7-50.0)
[2021-10-11] MEDS ORDERED: ONDANSETRON 4MG/2ML VIAL IV ONE (00:25)
[2021-10-11 00:32] LABS: CALCIUM LEVEL 8.8 MG/DL (8.8-10.2); CREATININE FOR GFR 3.5 MG/DL (0.70-1.30); POTASSIUM SERUM 4.7 MEQ/L (3.5-5.1)
[2021-10-11] MEDS ORDERED: CALCIUM CARBONATE 500 MG CHEW U/D PO PRN (01:35)
[2021-10-11] MEDS ORDERED: PERCOCET 5MG/325MG TAB PO PRN (01:35)
[2021-10-11] MEDS ORDERED: ALBUTEROL 90 MCG/ACT 8GM HFA INHALER INH PRN (01:35)
[2021-10-11] MEDS ORDERED: ALBUTEROL SULFATE 2.5 MG/0.5 ML INH NEB SOLN INH PRN (01:35)
[2021-10-11] MEDS ORDERED: ACETAMINOPHEN 500 MG TAB PO PRN (01:40)
--- NOTE | 2021-10-11 01:47 | HPEPDOC ---
General Date of Admission Oct 10, 2021 at 22:47 Date of Service: Oct 10, 2021 Chief Complaint The patient is a 61-year-old male admitted with a reason for visit of Uti,Left Flank Pain. History of Present Illness HISTORY OF PRESENT ILLNESS: This is a 61-year-old gentleman who presents to [facility] with chief complaint of left flank pain. Patient has had quite an extensive surgical history which includes a recent robotic assisted radical cystoprostatectomy with dissection of lymph nodes and formation of a neobladder in July 2021. Patient also has a history of renal cell Ca status post right sided nephrectomy and a hx of ureteral stent on the left side. He has an indwelling Giron catheter placed in mid August 2021 and has been having recurrent urinary tract infections around that time. He was initially prescribed with Keflex on 09/09 which he took for 5 days but then had to be switched to doxycycline for an additional 7 days due to extreme nausea and vomiting and intolerance to the antibiotics. He was able to somewhat tolerate the doxycycline and finished 6 out of the 7 days and continues to have GI distress. Around the same time he has had trouble urinating and felt bladder fullness which prompted him to go to the ER at [facility] where he was diagnosed with a UTI and obstructive uropathy and MATHEW. He was with IV ceftazidime and discharged yesterday only to present back to [facility] with left flank pain that has become intolerable with radiation to the lower abdominal region. He has also noted that his urine output in the Giron bag has decreased in the past day despite drinking adequate amount of fluids he denies any dysuria or increased in urinati on or fullness in his bladder. He denies any fever, chills, shortness of breath but deviates from his baseline, cough, lower extremity edema. Denies any recent travel outside the state or country or sick contacts. 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 Quit 2 years ago. Social alcohol use (drinks once a month. 3-4 beers in 1 sitting) Occasional marijuana use, denies any other illicit drug use Lives at home with just outside [facility] Worked in the [employer] business. FAMILY HISTORY: Father. 85 years old. CAD, hypertension, [place] Mother. multiple sclerosis 4 brothers, 2 sisters (3 for blood brothers, 1 sister)all healthy. No history of ca in the family. 1 son healthy REVIEW OF SYSTEMS: General: Denies fever, shaking chills, had about a 20 pound weight loss in the past 3 weeks due to fatigue decreased p.o. HEENT: Denies changes in vision including blurry vision or double vision, or hearing loss nasal congestion or sore throat Heart: Denies chest pain or chest pressure or discomfort, or palpitations, or lower extremity edema Pulm: Denies cough or sputum production or shortness of breath GI: Nausea, vomiting, 1 day history of diarrhea which is now resolved. Denies any blood in stool. Stools : Soreness around his Giron insertion site. Denies bladder fullness, dysuria, increased frequency in urination. 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 Denies any bruising, easy bleeding or rashes. Psych: Denies sadness or loss of interest in doing things, no thoughts of self- harm or suicidal ideation PHYSICAL EXAM: VS: see below Weight on admission 81.82 kg GENERAL: The patient is a well-developed, well-nourished in no apparent dist ress. AAOx3 NEURO: No focal neurological deficits. Conversational and cooperative on exam HEENT: Head is normocephalic and atraumatic. Extraocular muscles are intact. Pupils are equal, round, and reactive to light and accommodation. Nares appears normal. Moist mucous membranes. PULM: Clear to auscultation bilaterally. No wheezing, rhonchi or rales appreciated. CARDIO: Normal S1, S2. no significant murmurs, gallops, rubs or clicks. No signs of peripheral edema. No JVD appreciated. ABDOMEN: Soft, obese and nondistended. Normal bowel sounds. Scar around his umbilicus appreciated. Tender in left lower quadrant without any guarding. No significant organomegaly appreciated. : Giron catheter in place draining urine with some sediment's. No signs of pus. 75 cc of urine in Giron bag. BACK: Positive CVA tenderness on left EXTREMITIES/SKIN: No cyanosis, clubbing, rash, lesions. Right-sided chest port is noted IMAGING CT abd/pelvis IMPRESSION: 1. Mildly enlarged left kidney with perinephric and periureteral edema suggesting urinary tract infection. 2. Left ureteral stent in expected location extending into the ileal conduit. No hydronephrosis or obstructing calculi. 3. Interval cystectomy. 4. New 4.3 cm cystic mass in the right anterior pelvis adjacent to the ileal conduit of uncertain significance. No other masses are seen. Comparison with any more recent imaging or MRI follow-up is recommended. 5. Colonic diverticulosis without evidence of diverticulitis. 6. Infrarenal abdominal aortic aneurysm. ASSESSMENT AND PLAN: 1. Bacteruria with chronic indwelling giron catheter. Patient was recently treat ed with IV ceftazidime at [facility] for urine culture positive for Pseudomonas. Patient was just discharged yesterday but presents back to [facility] today with persistnet and more intensified left flank pain with some lower quadrant abdominal pain. Will order for UA with reflex culture. Will place on Zosyn renally dosed. Patient currently has an indwelling Giron catheter which was changed out 2 days ago at [place]. He notes decreased output from his Giron int he past day; currently denies feeling pressure or bladder distention. We will consult urology for troubleshooting of the catheter and/or mechanical kinks or malpositioning. 2. Acute kidney injury on chronic kidney disease stage (IV). Patient follows with nephrology at [place] and it's unknown what his baseline Cr is. He had an MATHEW (Cr 8.9) 2/2 to obstrutive uropathy at that hospitalization. He currently has a stent in his L kidney and his Cr currently is noted to be 3.8. CT abd/pelvis did not show any obstructive uropathy. His other electrolytes are acceptable and there's no current need for diaylsis; however, will involve nephrology for his MATHEW. Appreicate their assistance. We will avoid nephrotoxic drugs. He denies ever using NSAIDS and only uses tylenol for pain and aches. continue with strict input and output with daily weight ins. 3. Lower abdominal pain. Patient also has a hx of colonic diverticulosis but no evidence of diverticulitis. He has a slight leukocytosis but afebrile. Currently on zosyn for UTI which would cover for diverticulitis. It's also noted that there's a new 4.3 cm cystic mass in the right anterior pelvis adjacent to the ileal conduit which may need further evaluation. Catheter irritation of the bladder leading to bladder spasms may also be a culprit. Currently having normal bowel movements. Would avoid constipation to reduce further pressure on t he bladder leading to irritation. Urology is on consult- appreicate their recommendations. 4. Normocytic Anemia. likely 2/2 to chronic kidney disease. Will obtain iron panel and b12 and folate levels. No current indication for transfusion now. Have obtained a blood product admin form in case transfusion is needed. Nephrology on consult- appreciate further recommendations. In the meantime, we will keep a close eye on his H/H with daily labs and order a stool occult blood. 5. Microscopic hematuria. 13 RBCs per high power of urine sediment on urine microscopy. Will also check for a urine protein and cr. He does currently have a UTI which is being treated with zosyn. UA will need to be followed s/p treatment of UTI. Nephrology and urology on consultation and appreciate further recommendations. 6. Hypertension. Will continue with his home bp meds. BP well controlled currently. 7. GERD. Will avoid protonix given his MATHEW on CKD. He takes home Tums and i'll resume that. Zofran prn for n/v. 8. Hyponatremia (mild). Asymptomatic. Volume status seems to be euvolemic. Will obtain serum osml to determine if this is a true hypoNa. Will also obtain urine osml, urine sodium. Will check a thyroid panel. 9. CAD s.p cardiac stent in 2019. Was on ASA and plavix. 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 He was on ASA however, due to extensive urological surgery in Jul, his Urologist took him off of ASA. Patient has not revisited the conversation with his urologist as to when to resume for prophalyxis. 10. History of RA. on hydroxychloroquine at home. Will hold this in light of his MATHEW. Code status: Full DVT ppx: TEDS/SCDS Disposition: Med/surg. pending clinical improvement. Home Medications Scheduled Hydroxychloroquine Sulfate (Hydroxychloroquine Sulfate) 200 Mg Tablet, 200 MG PO BID, (Reported) Metoprolol Succinate (Metoprolol Succinate) 50 Mg Tab.er.24h, 50 MG PO QHS, (Reported) Dppnhnjsnuwu-Zbsa-Kbmtwcot,Iso (Zosyn 2.25 gm/50 ml Galaxy Bag) 2.25 Gm/50 Ml Froz.piggy, 1 ARTURO IV Q6H for uti Sertraline HCl (Sertraline HCl) 25 Mg Tablet, 25 MG PO DAILY, (Reported) Simethicone (Simethicone) 80 Mg Tab.chew, 160 MG PO PCHS, (Reported) Scheduled PRN Acetaminophen (Tylenol Extra Strength) 500 Mg Tablet, 1,000 MG PO Q6H PRN for MILD PAIN (PS 1-4), (Reported) Albuterol Sulf (Albuterol Sulfate) 2.5 Mg/3 Ml Nebu, 2.5 MG INH QID PRN for SHORTNESS OF BREATH, (Reported) Albuterol Sulfate (Proair Hfa) 8.5 Gm Hfa.aer.ad, 2 PUFF INH QID PRN for SHORTNESS OF BREATH, (Reported) Calcium Carbonate (Tums) 200 Mg Tab.chew, 1,000 MG PO Q4H PRN for HEARTBURN/INDIGESTION, (Reported) Oxycodone HCl/Acetaminophen (Oxycodone-Acetaminophen 5-325) 1 Each Tablet, 1 TAB PO Q4H PRN for MODERATE/SEVERE PAIN (PS 5-10), (Reported) Allergies Coded Allergies: atorvastatin (Verified Adverse Reaction, Intermediate, Adverse Kidney Effects, 10/10/21) cephalexin (Verified Adverse Reaction, Mild, nausea, 10/10/21) doxycycline (Verified Adverse Reaction, Mild, nausea, 10/10/21) Plan / VTE VTE Prophylaxis Ordered?: Yes GME ATTESTATION GME ATTESTATION My faculty preceptor for this patient encounter was physically present during the encounter and was fully available. All aspects of the patient interview, examination, medical decision making process, and medical care plan development were reviewed and approved by the faculty preceptor. The faculty preceptor is aware and concurs with the plan as stated in the body of this note and will attest to such by his/her cosignature. ATTENDING NOTE I, A Yousef, have independently examined this patient and performed my own physical exam, as well as reviewed the documentation and addend when necessary. I have discussed in detail with the resident / student the findings and plan of treatment as documented by the resident / student. I agree with their findings and treatment plan except for any changes as outlined below. Nazanin Goss DO Oct 11, 2021 01:35 KASSANDRA WEST MD Oct 11, 2021 21:35
[2021-10-11 03:03] LABS: RSV AMPLIFICATION NEGATIVE (NEGATIVE)
[2021-10-11 03:31] VITALS: BP 124/74
[2021-10-11] MEDS: PIPERACILLIN/TAZOBACTAM SOD 2.25 GM in D5W MINI-BAG PLUS 50 ML IV SCH ×3 (04:43→15:01)
[2021-10-11 04:58] VITALS: BP 115/70
--- NOTE | 2021-10-11 05:59 | ECGEPIP ---
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
[2021-10-11] MEDS ORDERED: HEPARIN SOD (PORCINE) 5000UNITS/ML 1ML VIAL/SYRINGE SC SCH (06:00)
[2021-10-11 07:28] LABS: HEMATOCRIT 25.9 % (42.0-52.0); HEMOGLOBIN 8.3 g/dl (13.5-17.5); MEAN CORPUSCULAR HEMOGLOBIN 29.5 pg (27.0-33.0); MEAN CORPUSCULAR VOLUME 92.2 fl (80.0-96.0); PLATELET COUNT, AUTOMATED 395 10^3/uL (150-450); RED BLOOD COUNT 2.81 10^6/uL (4.30-6.10); WHITE BLOOD COUNT 12.1 10^3/uL (4.0-10.0)
--- NOTE | 2021-10-11 08:07 | SMCUROLCON ---
Urology Consultation General Date of Consultation 10/11/21 Reason For Consultation asked to see re left flank pain... History of Present Illness As per discussion with patient, he underwent a radical cystoprostatectomy with a neobladder in July of this year. He was just in [facility] with an elevated creatinine. He was discharged less than 24 hours ago. He could not tell me as to why his creatinine was elevated. States it was as high as about 6. About 3 at time of discharge. He was in the hospital for about 2 weeks. States that there was difficulty irrigating his catheter. He has a catheter in place now. It was changed just a few days ago. Presents to the emergency room because of left flank pain. White count about 12. Creatinine about 3. CT without contrast has been done. I reviewed the images. Solitary left kidney. Left ureteral stent in good position. No hydronephrosis. Catheter within the neobladder. 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 States that the left flank pain radiates around and down. No fevers. Nausea but no vomiting. No shortness of breath or chest pain. Past Medical History Medical History Hypertension, GERD, elevated cholesterol, [place] status post stent, rheumatoid arthritis, cervical hardware, bladder cancer, right kidney cancer Surgical Hstory Radical cystoprostatectomy with lymph node dissection and neobladder in July 2021, ventral hernia repair, right nephrectomy Family History Family History No bladder cancer or kidney cancer in the family Social History Social History Quit smoking 2 years ago, occasional alcohol use, occasional marijuana use, Medications Current Medications Current Medications Medications (Trade) Dose Ordered Sig/Darell Route PRN Reason Start Time Stop Time Status Last Admin Dose Admin Acetaminophen (Tylenol Tab) 1,000 mg Q6H PRN PO MILD PAIN (PS 1-4) 10/11/21 01:40 Albuterol Sulfate (Proventil Neb) 2.5 mg QID PRN INH SHORTNESS OF BREATH 10/11/21 01:35 Albuterol Sulfate (Proventil, Ventolin Hfa) 2 puff QID PRN INH SHORTNESS OF BREATH 10/11/21 01:35 Calcium Carbonate (Tums) 1,000 mg Q4H PRN PO HEARTBURN/INDIGESTION 10/11/21 01:35 Heparin Sodium (Porcine) (Heparin) 5,000 units Q8H SC 10/11/21 06:00 10/11/21 00:13 DC Home Med (Home Med List Complete!) ASDIRECTED XX 10/10/21 23:00 10/10/21 22:59 DC Hydroxychloroquine Sulfate (Plaquenil) 200 mg BID PO 10/10/21 21:00 10/11/21 05:33 DC Metoprolol Succinate (TopROL XL) 50 mg QHS PO 10/10/21 21:00 10/11/21 03:31 Ondansetron HCl (ZOFRAN INJection) 2 mg Q4HP PRN IV NAUSEA OR VOMITING 10/11/21 00:05 10/11/21 06:30 Oxycodone/ Acetaminophen (Percocet 5mg/ 325mg Tablet) 1 tab Q4H PRN PO MODERATE/SEVERE PAIN (PS 5-10) 10/11/21 01:35 10/11/21 03:30 Piperacillin Sod/ Tazobactam Sod 2.25 gm/Dextrose 50 ml @ 100 mls/hr Q6H IV 10/11/21 04:00 10/11/21 04:43 Sertraline HCl (Zoloft) 25 mg DAILY PO 10/11/21 09:00 Simethicone (Mylicon) 160 mg PCHS PO 10/10/21 21:00 Allergies Allergies: Coded Allergies: atorvastatin (Verified Adverse Reaction, Intermediate, Adverse Kidney Effects, 10/10/21) cephalexin (Verified Adverse Reaction, Mild, nausea, 10/10/21) doxycycline (Verified Adverse Reaction, Mild, nausea, 10/10/21) Review of Systems Constitutional: Denies: Fever Eyes: Denies: Pain ENT: Denies: Head Aches Skin: Denies: Rash Pulmonary: Denies: Dyspnea Cardiovascular: Denies Chest Pain Gastrointestinal: Reports: Nausea; Denies: Vomiting Genitourinary: Reports: Other Symptoms (Catheter in the neobladder) Hematologic: Denies: Bleeding Excessively Endocrine: Denies: Polydipsia Musculoskeletal: Denies: Neck Pain Neurological: Denies: Weakness Psych: Reports: Mood Normal Physical Examination General Exam: Alert, Cooperative, No Acute Distress EYE EXAM: Conjunctiva & lids normal ENT EXAM: Mucous membr. moist/pink Neck Exam: Supple Chest Exam: Clear to auscultation Heart Exam: Regular Rhythm Abdomen Exam: Soft; No: Tenderness Extremity Exam: No: Cyanosis Skin Exam: Nl turgor and temperature Neuro Exam: Normal Speech Psych Exam: Mental status NL Vital Signs/I&O Vital Signs Date Time Temp Pulse Resp B/P (MAP) Pulse Ox O2 Delivery O2 Flow Rate FiO2 10/11/21 05:53 16 Room Air 10/11/21 04:58 98.3 78 115/70 (85) 95 I&O- Last 24 Hours up to 6 AM 10/11/21 06:00 Intake Total 560 ml Output Total 250 ml Balance 310 ml Laboratory Data 24H Labs Laboratory Tests 2 10/10/21 18:55: Immature Granulocyte % (Auto) 0.7, Neutrophils (%) (Auto) 79.0H, Lymphocytes (%) (Auto) 10.1L, Monocytes (%) (Auto) 8.7H, Eosinophils (%) (Auto) 1.0, Basophils ( %) (Auto) 0.5, Neutrophils # (Auto) 10.0H, Lymphocytes # (Auto) 1.3L, Monocytes # (Auto) 1.1H, Eosinophils # (Auto) 0.1, Basophils # (Auto) 0.1, Nucleated Red Blood Cells % (auto) 0.0, Anion Gap 9, Glomerular Filtration Rate 19.0L, Osmolality 293, Calcium Level 8.8, Iron Level 37L, Total Iron Binding Capacity 256, Transferrin % Saturation 14.5L, Ferritin 487H, Total Bilirubin 0.3, Direct Bilirubin 0.1, Aspartate Amino Transf (AST/SGOT) 19, Alanine Aminotransferase (ALT/SGPT) 35, Alkaline Phosphatase 228H, Total Protein 6.5, Albumin 2.5L, Albumin/Globulin Ratio 0.6, Triglycerides Level 225H, Total Cholesterol 133, LDL Cholesterol 67, Non-HDL Cholesterol (LDL + VLDL) 112, Total HDL Cholesterol 21L, Cholesterol/HDL Ratio 6.333H, Lipase 129 10/10/21 18:56: POC Glucose (Misc Panel) 90, POC Sodium (Misc Panel) 134L, POC Potassium (Misc Panel) 4.5, POC Chloride (Misc Panel) 102, POC Total CO2 (Misc Panel) 23.0, POC Blood Urea Nitrogen (Misc Panel 51H, POC Ionized Calcium (Misc Panel) 4.7, POC Creatinine (Misc Panel) 3.8H, POC Hematocrit (Misc Panel) 26.0L 10/10/21 21:39: Urine Color YELLOW, Urine Appearance TURBIDH, Urine pH 8.0, Urine Specific Wilmar 1.005, Urine Protein 1+H, Urine Glucose (UA) NEGATIVE, Urine Ketones NEGATIVE, Urine Blood 2+H, Urine Nitrite NEGATIVE, Urine Bilirubin NEGATIVE, Urine Urobilinogen 0.2, Urine Leukocyte Esterase 3+H, Urine WBC (Auto) 149H, Urine RBC (Auto) 13H, Urine Hyaline Casts (Auto) 0, Urine Bacteria (Auto) 1+H, Urine Squamous Epithelial Cells 1, Urine Mucus (Auto) MODERATE, Urine Yeast-Like Cells (Auto) SMALLH, Urine Sperm (Auto) , Lactic Acid Level 0.9 10/11/21 02:06: Coronavirus (COVID-19)(PCR) NEGATIVE, Influenza Type A (RT-PCR) NEGATIVE, Influenza Type B (RT-PCR) NEGATIVE, Respiratory Syncytial Virus (PCR) NEGATIVE 10/11/21 06:46: Nucleated Red Blood Cells % (auto) 0.0 CBC/BMP Laboratory Tests 10/10/21 18:55 10/11/21 06:46 Microbiology Microbiology 10/10/21 Blood Culture, Received Pending 10/10/21 Urine Culture, Received Pending 10/10/21 Blood Culture, Received Pending Assessment I listened to and examined pt. I reviewed imaging. I think pt's pain is stent related. He describes flank pain that radiates around and down. If his cathet er is plugged by mucus, urine will reflux up the stent into his kidney and cause pain. Ct is fine other than small urinoma. Creatinine is what is was when he was discharged from the other hospital. Question as to why his creatinine is and has been elevated. Belly exam benign. Plan Suggest checking cbc and cmp again. If no changes or better, and pain is controlled, consider discharging pt. Patient's chief complaint is pain. I think his pain is related to the stent. Discharge with oral antibiotic chosen based on pt's last cx at the other hospital. I do not have the results of the culture. As to patient's elevated creatinine, I do not know what transpired at [facility]. Time Spent on Consult: Time Spent / Consult (Minutes): 30 BRIDGETTE CHILD MD Oct 11, 2021 08:06
[2021-10-11 08:09] LABS: FOLATE 8.1 NG/ML (>5.4)
[2021-10-11 08:11] LABS: CALCIUM LEVEL 8.8 MG/DL (8.8-10.2); CREATININE FOR GFR 4.39 MG/DL (0.70-1.30); FREE T4 1.35 NG/DL (0.76-1.46); GLOMERULAR FILTRATION RATE 14.6 (>49); MAGNESIUM LEVEL 2.1 MG/DL (1.8-2.4); POTASSIUM SERUM 5.3 MEQ/L (3.5-5.1); THYROID STIMULATING HORMONE 2.73 uIU/ML (0.358-3.740)
[2021-10-11] MEDS ORDERED: SERTRALINE HCL 25 MG TABLET PO SCH (09:00)
[2021-10-11] MEDS: SIMETHICONE 80MG CHEW TAB PO SCH ×2 (09:47→12:42)
--- NOTE | 2021-10-11 10:48 | IPNPDOC ---
Date Seen The patient was seen on 10/11/21. Progress Note Creatinine has increased from 3.50 to 4.39. The ureteral stent seems to be in proper position. No worrisome hydronephrosis. If other reasons for the rise in creatinine have been ruled out, I suggest placement of a nephrostomy tube. I am not willing to try to change this patient's ureteral stent given the fact that he has a new neobladder. I have not seen records from [place] explaining why this patient's creatinine was recently about 6. Ideally the patient should have returned to [place] given the fact that he was discharged from there just hours before presenting to the ER at [facility]. By coming to [facility], patient has put [facility] physicians at a great disadvantage. Dr. Marinelli with interventional radiology is on vacation. If nephrostomy tube placement is the plan, patient will need to go elsewhere. VS, I&O, 24H, Fishbone Vital Signs/I&O Vital Signs Date Time Temp Pulse Resp B/P (MAP) Pulse Ox O2 Delivery O2 Flow Rate FiO2 10/11/21 05:53 16 Room Air 10/11/21 04:58 98.3 78 115/70 (85) 95 l I&O- Last 24 Hours up to 6 AM 10/11/21 06:00 Intake Total 560 ml Output Total 250 ml Balance 310 ml Laboratory Data 24H LABS Laboratory Tests 2 10/10/21 18:55: Immature Granulocyte % (Auto) 0.7, Neutrophils (%) (Auto) 79.0H, Lymphocytes (%) (Auto) 10.1L, Monocytes (%) (Auto) 8.7H, Eosinophils (%) (Auto) 1.0, Basophils (%) (Auto) 0.5, Neutrophils # (Auto) 10.0H, Lymphocytes # (Auto) 1.3L, Monocytes # (Auto) 1.1H, Eosinophils # (Auto) 0.1, Basophils # (Auto) 0.1, Nucleated Red Blood Cells % (auto) 0.0, Anion Gap 9, Glomerular Filtration Rate 19.0L, Osmolality 293, Calcium Level 8.8, Iron Level 37L, Total Iron Binding Capacity 256, Transferrin % Saturation 14.5L, Ferritin 487H, Total Bilirubin 0.3, Direct Bilirubin 0.1, Aspartate Amino Transf (AST/SGOT) 19, Alanine Aminotransferase (ALT/SGPT) 35, Alkaline Phosphatase 228H, Total Protein 6.5, Albumin 2.5L, Albumin/Globulin Ratio 0.6, Triglycerides Level 225H, Total Cholesterol 133, LDL Cholesterol 67, Non-HDL Cholesterol (LDL + VLDL) 112, Total HDL Cholesterol 21L, Cholesterol/HDL Ratio 6.333H, Lipase 129 10/10/21 18:56: POC Glucose (Misc Panel) 90, POC Sodium (Misc Panel) 134L, POC Potassium (Misc Panel) 4.5, POC Chloride (Misc Panel) 102, POC Total CO2 (Misc Panel) 23.0, POC Blood Urea Nitrogen (Misc Panel 51H, POC Ionized Calcium (Misc Panel) 4.7, POC Creatinine (Misc Panel) 3.8H, POC Hematocrit (Misc Panel) 26.0L 10/10/21 21:39: Urine Color YELLOW, Urine Appearance TURBIDH, Urine pH 8.0, Urine Specific [place] 1.005, Urine Protein 1+H, Urine Glucose (UA) NEGATIVE, Urine Ketones NEGATIVE, Urine Blood 2+H, Urine Nitrite NEGATIVE, Urine Bilirubin NEGATIVE, Urine Urobilinogen 0.2, Urine Leukocyte Esterase 3+H, Urine WBC (Auto) 149H, Urine RBC (Auto) 13H, Urine Hyaline Casts (Auto) 0, Urine Bacteria (Auto) 1+H, Urine Squamous Epithelial Cells 1, Urine Mucus (Auto) MODERATE, Urine Yeast-Like Cells (Auto) SMALLH, Urine Sperm (Auto) , Lactic Acid Level 0.9 10/11/21 02:06: Coronavirus (COVID-19)(PCR) NEGATIVE, Influenza Type A (RT-PCR) NEGATIVE, Influenza Type B (RT-PCR) NEGATIVE, Respiratory Syncytial Virus (PCR) NEGATIVE 10/11/21 06:46: Nucleated Red Blood Cells % (auto) 0.0, Anion Gap 9, Glomerular Filtration Rate 14.6L, Calcium Level 8.8, Magnesium Level 2.1, Vitamin B12 Level 957H, Folate 8.1, Thyroid Stimulating Hormone (TSH) 2.730, Free Thyroxine 1.35 10/11/21 09:28: CBC/BMP Laboratory Tests 10/10/21 18:55 10/11/21 06:46 Microbiology Microbiology 10/10/21 Blood Culture, Received Pending 10/10/21 Urine Culture, Received Pending 10/10/21 Blood Culture, Received Pending BRIDGETTE CHILD MD Oct 11, 2021 10:48
[2021-10-11] MEDS ORDERED: ZOSY1SOL4 IV (12:11)
--- NOTE | 2021-10-11 12:20 | DS.PDOC ---
Discharge Summary General Date of Admission Oct 10, 2021 at 22:47 Date of Discharge 10/11/21 Attending Physician: Jennifer Portillo MD Discharge Summary PROCEDURES PERFORMED DURING STAY: None ADMITTING DIAGNOSES: 1. Bacteruria with chronic indwelling giron catheter. 2. Acute kidney injury on chronic kidney disease stage (IV). 3. Lower abdominal pain 2/2 to stent pain 4. Normocytic anemia likely 2/2 to chronic kidney disease 5. Microscopic hematuria 6. Hypertension 7. GERD 8. Hyponatremia 9. CAD s.p cardiac stent in 2019 10. History of RA. DISCHARGE DIAGNOSES: 1. UTI with chronic indwelling giron catheter 2. Acute kidney injury on chronic kidney disease stage (IV) 3. Lower abdominal pain 2/2 to stent pain 4. Normocytic Anemia likely 2/2 to chronic kidney disease 5. Microscopic hematuria 6. Hypertension 7. GERD 8. Hyponatremia 9. CAD /p cardiac stent in 2019 10. History of RA. COMPLICATIONS/CHIEF COMPLAINT: UTI, left Flank Pain HISTORY OF PRESENT ILLNESS: This is a 61-year-old gentleman who presents to [facility] ER with chief complaint of left flank pain. Patient has had quite an extensive surgical history which includes a recent robotic assisted radical cystoprostatectomy with dissection of lymph nodes and formation of a neobladder in July 2021. Patient also has a history of renal cell Ca status post right sided nephrectomy and a hx of ureteral stent on the left side. He has an indwelling Giron catheter placed in mid August 2021 and has been having recurrent urinary tract infections around that time. He was initially prescribed with Keflex on 09/09 which he took for 5 days but then had to be switched to doxycycline for an additional 7 days due to extreme nausea and vomiting and intolerance to the antibiotics. He was able to somewhat tolerate the doxycycline and finished 6 out of the 7 days and continues to have GI distress. Around the same time he has had trouble urinating and felt bladder fullness which prompted him to go to the ER at [facility] where he was diagnosed with a UTI and obstructive uropathy and MATHEW. He was with IV ceftazidime and discharged 10/09/21 only to present back to [facility] ER with left flank pain that has become intolerable with radiation to the lower abdominal region. He has also noted that his urine output in the Giron bag has decreased in the past day despite drinking adequate amount of fluids he denies any dysuria or increased in urination or fullness in his bladder. He denies any fever, chills, shortness of breath but deviates from his baseline, cough, lower extremity edema. Denies any recent travel outside the state or country or sick contacts. HOSPITAL COURSE: On the hospital floor, patient's VS were stable. Patient was started on Zosyn IV. Per urology note, the patient's left side pain was believed to be 2/2 to left ureteral stent . CT abd showed stent was in proper place, no hydronephrosis was seen and therefore, it was not suggested for further urological intervention. Next day after admission, nephrology reviewed labs which appeared worse, urine output was poor. Cr increased to 4.39 from 3.5 on admission. Nephrology states that his UTI does not seem to be cause as he has been on appropriate abx coverage since admission, no new nephrotoxic medications. Concern remained for possible issue with left ureteral stent. Urology was not willing to try to change this patient's ureteral stent given the fact that he has a new neobladder. It was suggested that ideally the patient should return to [facility] given the fact that he was discharged from there just hours before presenting to the ER at [facility] and he may require a nephrostomy tube if no other causes are identified. I spoke with Dr. Chavez, urology associate of Dr. Paco Del Real ( the patient's urologist) who agreed the patient should be transferred back to [place] for further evaluation. Bed was obtained and transfer was initiated. At the time of transfer, patient denied chest pain, n/v/d, fevers, chills, shortness of breath. DISCHARGE MEDICATIONS: Please see below. ALLERGIES: Please see below. PHYSICAL EXAMINATION ON DISCHARGE: VS: see below GENERAL: The patient is a well-developed, well-nourished in no apparent distress. AAOx3 NEURO: No focal neurological deficits. Conversational and cooperative on exam HEENT: Head is normocephalic and atraumatic. Extraocular muscles are intact. Pupils are equal, round, and reactive to light and accommodation. Nares appears normal. Moist mucous membranes. PULM: Clear to auscultation bilaterally. No wheezing, rhonchi or rales appreciated. CARDIO: Normal S1, S2. no significant murmurs, gallops, rubs or clicks. No signs of peripheral edema. No JVD appreciated. ABDOMEN: Soft, obese and nondistended. Normal bowel sounds. Scar around his umbilicus appreciated. Tender in left lower quadrant without any guarding. No significant organomegaly appreciated. : Giron catheter in place draining urine with some sediment's. EXTREMITIES/SKIN: No cyanosis, clubbing, rash, lesions. Right-sided chest port is noted PSYCH: mood and affect appropriate LABS: Please see below MICRO: UA +, Cx pending Blood cultures pending IMAGING: CT abd/pelvis 10/10/21: 1. Mildly enlarged left kidney with perinephric and periureteral edema suggesting urinary tract infection. 2. Left ureteral stent in expected location extending into the ileal conduit. No hydronephrosis or obstructing calculi. 3. Interval cystectomy. 4. New 4.3 cm cystic mass in the right anterior pelvis adjacent to the ileal conduit of uncertain significance. No other masses are seen. Comparison with any more recent imaging or MRI follow-up is recommended. 5. Colonic diverticulosis without evidence of diverticulitis. 6. Infrarenal abdominal aortic aneurysm. LABORATORY DATA: Please see below. PROGNOSIS: Good ACTIVITY: As tolerated DIET: Renal diet DISCHARGE INSTRUCTIONS / ITEMS TO FOLLOWUP ON ON OUTPATIENT: 1. Transferring to [facility] today, Dr. Jacobo urology as primary DISCHARGE CONDITION: Stable TIME SPENT ON DISCHARGE: 35 minutes. Vital Signs/I&Os Vital Signs Date Time Temp Pulse Resp B/P (MAP) Pulse Ox O2 Delivery O2 Flow Rate FiO2 10/11/21 05:53 16 Room Air 10/11/21 04:58 98.3 78 115/70 (85) 95 I&O- Last 24 Hours up to 6 AM 10/11/21 06:00 Intake Total 560 ml Output Total 250 ml Balance 310 ml Laboratory Data Labs 24H Laboratory Tests 2 10/10/21 18:55: Immature Granulocyte % (Auto) 0.7, Neutrophils (%) (Auto) 79.0H, Lymphocytes (%) (Auto) 10.1L, Monocytes (%) (Auto) 8.7H, Eosinophils (%) (Auto) 1.0, Basophils (%) (Auto) 0.5, Neutrophils # (Auto) 10.0H, Lymphocytes # (Auto) 1.3L, Monocytes # (Auto) 1.1H, Eosinophils # (Auto) 0.1, Basophils # (Auto) 0.1, Nucleated Red Blood Cells % (auto) 0.0, Anion Gap 9, Glomerular Filtration Rate 19.0L, Osmolality 293, Calcium Level 8.8, Iron Level 37L, Total Iron Binding Capacity 256, Transferrin % Saturation 14.5L, Ferritin 487H, Total Bilirubin 0.3, Direct Bilirubin 0.1, Aspartate Amino Transf (AST/SGOT) 19, Alanine Aminotransferase (ALT/SGPT) 35, Alkaline Phosphatase 228H, Total Protein 6.5, Albumin 2.5L, Albumin/Globulin Ratio 0.6, Triglycerides Level 225H, Total Cholesterol 133, LDL Cholesterol 67, Non-HDL Cholesterol (LDL + VLDL) 112, Total HDL Cholesterol 21L, Cholesterol/HDL Ratio 6.333H, Lipase 129 10/10/21 18:56: POC Glucose (Misc Panel) 90, POC Sodium (Misc Panel) 134L, POC Potassium (Misc Panel) 4.5, POC Chloride (Misc Panel) 102, POC Total CO2 (Misc Panel) 23.0, POC Blood Urea Nitrogen (Misc Panel 51H, POC Ionized Calcium (Misc Panel) 4.7, POC Creatinine (Misc Panel) 3.8H, POC Hematocrit (Misc Panel) 26.0L 10/10/21 21:39: Urine Color YELLOW, Urine Appearance TURBIDH, Urine pH 8.0, Urine Specific [place] 1.005, Urine Protein 1+H, Urine Glucose (UA) NEGATIVE, Urine Ketones NEGATIVE, Urine Blood 2+H, Urine Nitrite NEGATIVE, Urine Bilirubin NEGATIVE, Urine Urobilinogen 0.2, Urine Leukocyte Esterase 3+H, Urine WBC (Auto) 149H, Urine RBC (Auto) 13H, Urine Hyaline Casts (Auto) 0, Urine Bacteria (Auto) 1+H, Urine Squamous Epithelial Cells 1, Urine Mucus (Auto) MODERATE, Urine Yeast-Like Cells (Auto) SMALLH, Urine Sperm (Auto) , Lactic Acid Level 0.9 10/11/21 02:06: Coronavirus (COVID-19)(PCR) NEGATIVE, Influenza Type A (RT-PCR) NEGATIVE, Influenza Type B (RT-PCR) NEGATIVE, Respiratory Syncytial Virus (PCR) NEGATIVE 10/11/21 06:46: Nucleated Red Blood Cells % (auto) 0.0, Anion Gap 9, Glomerular Filtration Rate 14.6L, Calcium Level 8.8, Magnesium Level 2.1, Vitamin B12 Level 957H, Folate 8.1, Thyroid Stimulating Hormone (TSH) 2.730, Free Thyroxine 1.35 10/11/21 09:28: Methicillin-Resist S.aureus DNA PCR NOT DETECTED CBC/BMP Laboratory Tests 10/10/21 18:55 10/11/21 06:46 Microbiology Microbiology 10/10/21 Blood Culture, Received Pending 10/10/21 Urine Culture, Received Pending 10/10/21 Blood Culture, Received Pending Discharge Medications Scheduled Hydroxychloroquine Sulfate (Hydroxychloroquine Sulfate) 200 Mg Tablet, 200 MG PO BID, (Reported) Metoprolol Succinate (Metoprolol Succinate) 50 Mg Tab.er.24h, 50 MG PO QHS, (Reported) Bkuynvywlmfj-Goxi-Orolfvaw,Iso (Zosyn 2.25 gm/50 ml Galaxy Bag) 2.25 Gm/50 Ml Froz.piggy, 1 ARTURO IV Q6H for uti Sertraline HCl (Sertraline HCl) 25 Mg Tablet, 25 MG PO DAILY, (Reported) Simethicone (Simethicone) 80 Mg Tab.chew, 160 MG PO PCHS, (Reported) Scheduled PRN Acetaminophen (Tylenol Extra Strength) 500 Mg Tablet, 1,000 MG PO Q6H PRN for MILD PAIN (PS 1-4), (Reported) Albuterol Sulf (Albuterol Sulfate) 2.5 Mg/3 Ml Nebu, 2.5 MG INH QID PRN for SHORTNESS OF BREATH, (Reported) Albuterol Sulfate (Proair Hfa) 8.5 Gm Hfa.aer.ad, 2 PUFF INH QID PRN for SHORTNESS OF BREATH, (Reported) Calcium Carbonate (Tums) 200 Mg Tab.chew, 1,000 MG PO Q4H PRN for HEAR TBURN/INDIGESTION, (Reported) Oxycodone HCl/Acetaminophen (Oxycodone-Acetaminophen 5-325) 1 Each Tablet, 1 TAB PO Q4H PRN for MODERATE/SEVERE PAIN (PS 5-10), (Reported) Allergies Coded Allergies: atorvastatin (Verified Adverse Reaction, Intermediate, Adverse Kidney Effects, 10/10/21) cephalexin (Verified Adverse Reaction, Mild, nausea, 10/10/21) doxycycline (Verified Adverse Reaction, Mild, nausea, 10/10/21) Jennifer Portillo MD Oct 11, 2021 12:20
[2021-10-11 14:00] VITALS: BP 136/80
--- NOTE | 2021-10-11 16:30 | CR ---
CONSULTATION DATE: 10/11/2021 REQUESTING PHYSICIAN: DELL HERNANDEZ MD REASON FOR CONSULTATION: Acute kidney injury in this patient with solitary functioning left kidney and recent significant urologic procedures in July 2021. HISTORY OF PRESENT ILLNESS: Mr. Lucas Mosley is a 61-year-old male previously unknown to me. He was admit to [facility] last night with a complaint of severe left flank pain associated with nausea and decreased urine output to his العلي catheter. Patient reports a past medical history of renal cell carcinoma status post right sided nephrectomy and a history of ureteral stenting on the left side. He reports he had a robotic assisted radical cystoprostatectomy with formation of a neobladder in July 2021. CT of the abdomen and pelvis done last night in the Emergency Room is reviewed and I note that the patient has an enlarged and edematous left kidney with perinephric and periureteral edema. He has a left ureteral stent that extends into the ureteral conduit. The conduit itself is nondilated and there is a العلي catheter present in the ureteral conduit. CT scan also showed a 4.3 cm cystic mass adjacent to the ureteral conduit which is new since a prior exam dated March 2019. No hydronephrosis or obstructing calculus was visualized. The patient reports he has recently been dealing with recurrent urinary tract infections for about the past month or so and has been on at least two or three courses of antibiotics. His (over the phone) reports that the patient has been having increasing amounts of mucous and slime mixed in with the urine in the العلي bag. At times the mucous and the slime clog off the العلي output and the patient and his flush the العلي. At around the same time that he developed severe left sided flank pain, they also noticed lack of urine outpatient to the العلي catheter. He called his urologist who directed him to come to the nearest Emergency Room. His creatinine on admission yesterday was 3.5 and is up to 4.4 on labs this morning. His urine output has been poor. He denies any shortness of breath or leg edema. His tells me that when he was admit to [place] recently with an acute kidney injury he had significant metabolic encephalopathy at that time and dialysis was discussed but patient ended up improving in terms of his renal function and did not require urgent dialysis at that time. PAST MEDICAL/SURGICAL HISTORY: 1. Hypertension. 2. Urothelial cell carcinoma, bladder and prostate cancer, status post assisted robotic radical cystoprostatectomy with extensive lymph node dissection status post formation of neobladder left ureteral stent. 3. Ventral hernia repair. 4. GERD. 5. Dyslipidemia. 6. History of myocardial infarction, status post coronary stenting. 7. Cervical fusion with hardware. 8. Rheumatoid arthritis, on Plaquenil. 9. Infrarenal abdominal aortic aneurysm. 10.Diverticulosis. 11.Solitary functioning left kidney (status post right nephrectomy). 12.History of metabolic encephalopathy in the setting of acute kidney injury. SOCIAL HISTORY: He is a 40 pack year smoker, quit two years ago, reports social alcohol, occasional marijuana use, no other drug use. . Lives with his . FAMILY HISTORY: Mother of multiple sclerosis. Father with heart disease. No familial history of malignancy. ALLERGIES: Atorvastatin, cephalexin and Doxycycline. HOME MEDICATIONS: Reviewed. 1. Plaquenil 200 mg b.i.d. 2. Metoprolol 50 mg p.o. q.h.s. 3. Sertraline 25 mg daily. 4. Simethicone p.o. q.h.s. 5. Tylenol p.r.n. 6. Albuterol p.r.n. 7. Tums p.r.n. REVIEW OF SYSTEMS: CONSTITUTIONAL: He reports weight loss. He reports fatigue. HEENT: He denies visual changes, odynophagia or rhinorrhea. CARDIAC: Denies chest pain or palpitations. He has a history of coronary artery disease and hypertension. RESPIRATORY: Denies shortness of breath or cough. GASTROINTESTINAL: Reports nausea. Reports vomiting. Denies any large volume watery diarrhea. Reports poor oral intake recently. GENITOURINARY: Significant issues. Please see HPI. Reports decreased urine to the العلي catheter. Reports left flank pain. Solitary functioning left kidney, etc. ENDOCRINE: Denies a history of diabetes or thyroid issues. MUSCULOSKELETAL: Denies leg edema or leg swelling, acute myalgias or arthralgias. Has a history of rheumatoid arthritis. HEMATOLOGIC: Reports anemia. Reports the presence of a chemo port but cannot tell me at time regarding current chemo regimen. NEUROLOGIC: Reports neuropathy. Denies a history of seizure. PSYCHIATRIC: Reports anxiety. A 12 point review of systems is negative or as per HPI. PHYSICAL EXAMINATION: VITAL SIGNS: Temperature is 98.3, pulse is 78, respiratory rate is 16, blood pressure is 115/70, saturating 95% on room air. INPUT AND OUTPUT: Urine output into the العلي is currently 250 ml. GENERAL: Patient is seen lying in bed, awake, alert and oriented x3 in no overt distress. His is on the speaker phone listening in during the visit. HEENT: Extraocular muscles are intact. Tongue is moist. NECK: Supple. There is a chemo port present in the right chest wall. Jugular veins are not elevated. HEART: Heart sounds are regular S1 and S2. There is no peripheral edema. No dependent edema. LUNGS: Good breath sounds. No crackle or rale. He is comfortable on room air. ABDOMEN: Soft and there is tenderness in the left flank. GENITOURINARY: العلي catheter with some mucous plugging. There is a couple hundred ml of urine present. There is no gross hematuria. NEUROLOGIC: He is oriented x3, interactive, conversational, good insight and asks appropriate questions. SKIN: No rashes or ulcers. LABORATORY DATA: White count is 12.1, hemoglobin is 8.3, platelets are 395,000, sodium is 133, potassium is 5.3, bicarbonate 23, BUN 61, creatinine is 4.3, magnesium 2.1. Blood culture and urine culture is pending. CT of the abdomen and pelvis was reviewed and was discussed above. INPATIENT MEDICATIONS: He was given normal saline 500 ml bolus. He is on Zosyn 4.5 grams IV x1 and on 2.25 gram IV q. 6 hourly, Reglan 5 mg IV x1, metoprolol 50 mg p.o. q.h.s., Morphine 4 mg IV x2 doses, Percocet p.r.n., Zoloft 25 mg p.o. daily. PROBLEMS: 1. Acute kidney injury superimposed on CKD Stage IIIA. I reviewed prior labs on the [facility] from 2019 up to June 2021. His baseline creatinine was 1.2 to 1.5. He has a solitary functioning left kidney (status post right nephrectomy due to malignancy). He has had recent recurrent acute kidney injuries in the setting of obstruction. His CT of the abdomen and pelvis done overnight in the Emergency Room shows an enlarged and edematous left kidney. He has been evaluated by Urology and consideration is being given for left nephrostomy tube placement. He tells me this was discussed by his primary urologist in [place] as well. There is no urgent indication for dialysis at this point. Primary team is in conversation with the patient's urologist regarding transferring the patient back to [place]. Patient understands that he may develop dialysis needs if the obstruction and recurrent infections cannot be handled and addressed. He tells me he has had these discussions with Nephrology at [place] as well. If there is a delay in his transfer, I would put the patient on IV fluids and we will continue to monitor him closely for any developing dialysis needs. As of today, there are no urgent indications for dialysis initiation. Dr. Hernandez is already in conversation regarding facilitating transfer. Thank you for involving me in the care of Dr. Mosley. If there is a delay in the patient's transfer, I will follow him along closely with you.
[2021-10-13 16:08] LABS: SOLUBLE TRANSFERRIN RECEPTOR 9.2 nmol/L (12.2-27.3)
== END 2021-10-11 16:20 | disposition hospice, inpatient (51) | DRG 699 ==
LOC: M ED 17:07 → M ED INP 22:47 → EEVIPCON 22:47 → ENRESERV 10-11 01:41 → M MSPAV 10-11 05:00
PROVIDERS: ADMIT Family Medicine; ATTEND Internal Medicine
DX: T83.511A Infection and inflammatory reaction due to indwelling urethral catheter, initial encounter (principal); N17.9 Acute kidney failure, unspecified; E87.1 Hypo-osmolality and hyponatremia; N18.4 Chronic kidney disease, stage 4 (severe); N39.0 Urinary tract infection, site not specified; R82.71 Bacteriuria; K21.9 Gastro-esophageal reflux disease without esophagitis; Z95.2 Presence of prosthetic heart valve; R31.1 Benign essential microscopic hematuria; D64.9 Anemia, unspecified; Z79.899 Other long term (current) drug therapy; Z88.8 Allergy status to other drugs, medicaments and biological substances; Z85.51 Personal history of malignant neoplasm of bladder; Z85.46 Personal history of malignant neoplasm of prostate; I25.2 Old myocardial infarction; M06.9 Rheumatoid arthritis, unspecified; K57.30 Diverticulosis of large intestine without perforation or abscess without bleeding; I71.4 Abdominal aortic aneurysm, without rupture; Z87.891 Personal history of nicotine dependence; Y84.6 Urinary catheterization as the cause of abnormal reaction of the patient, or of later complication, without mention of misadventure at the time of the procedure

== ENCOUNTER → 2021-11-07 | Outpatient (REF) | payer OTHER ==
[~2021-11-07] MED LIST changes: +ACET-897 PO; +HYDR200T3 PO; +METO1TAB7 PO; +PROAAER10 INH; +SERT25TA21 PO; +SIME80CH6 PO; +TUMS500C PO; +ZOSY1SOL4 IV
[2021-11-07 14:16] LABS: BASO # 0.1 10^3/uL (0.0-0.2); BASO % 0.8 % (0.0-1.0); EOS # 0.6 10^3/uL (0.0-0.5); EOS % 6.2 % (0.0-3.0); HEMATOCRIT 31.9 % (42.0-52.0); HEMOGLOBIN 10.8 g/dl (13.5-17.5); LYMPH # 1.7 10^3/uL (1.5-5.0); LYMPH % 16.9 % (24.0-44.0); MEAN CORPUSCULAR HEMOGLOBIN 31.9 pg (27.0-33.0); MEAN CORPUSCULAR HGB CONC 33.9 g/dl (32.0-36.5); MEAN CORPUSCULAR VOLUME 94.1 fl (80.0-96.0); MONO # 0.7 10^3/uL (0.0-0.8); MONO % 6.6 % (2.0-8.0); NEUTROPHILS # 6.8 10^3/uL (1.5-8.5); NEUTROPHILS % 68.4 % (36.0-66.0); PLATELET COUNT, AUTOMATED 270 10^3/uL (150-450); RED BLOOD COUNT 3.39 10^6/uL (4.30-6.10)
[2021-11-07 14:29] LABS: INR 1.12; PARTIAL THROMBOPLASTIN TIME 29.2 SECONDS (25.9-37.0); PROTHROMBIN TIME 14.8 SECONDS (12.7-14.5)
[2021-11-07 14:44] LABS: ALBUMIN 3.5 GM/DL (3.2-5.2); BILIRUBIN,TOTAL 0.3 MG/DL (0.2-1.0); CALCIUM LEVEL 8.5 MG/DL (8.8-10.2); CREATININE FOR GFR 1.68 MG/DL (0.70-1.30); GLOMERULAR FILTRATION RATE 44.3 (>49); MAGNESIUM LEVEL 1.9 MG/DL (1.8-2.4); POTASSIUM SERUM 4.4 MEQ/L (3.5-5.1); TOTAL PROTEIN 6.8 GM/DL (6.4-8.2)
[2021-11-07 22:37] LABS: APPEARANCE, URINE CLOUDY (CLEAR); BACTERIA, URINE AUTO 1+ (NEGATIVE); BILIRUBIN, URINE AUTO NEGATIVE (NEGATIVE); BLOOD, URINE BLOOD 2+ (NEGATIVE); COLOR, URINE YELLOW (YELLOW); GLUCOSE, URINE (UA) AUTO NEGATIVE (NEGATIVE); KETONE, URINE AUTO NEGATIVE (NEGATIVE); LEUKOCYTE ESTERASE, URINE AUTO 3+ (NEGATIVE); NITRITE, URINE AUTO NEGATIVE (NEGATIVE); PROTEIN, URINE AUTO 2+ mg/dL (NEGATIVE); RBC, URINE AUTO 67 /HPF (0-3); SPECIFIC GRAVITY URINE AUTO 1.009 (1.002-1.035); SQUAMOUS EPITHELIAL CELL UR AU 0 /HPF (0-6); UROBILINOGEN, URINE AUTO 0.2 mg/dL (0.0-2.0); WBC, URINE AUTO TNTC /HPF (0-3)
== END ==
LOC: M SHH 13:42
PROVIDERS: ATTEND Family Medicine
DX: N18.30 Chronic kidney disease, stage 3 unspecified (principal); Z79.899 Other long term (current) drug therapy; Z79.891 Long term (current) use of opiate analgesic

== ENCOUNTER → 2021-11-20 | Outpatient (CLI) | payer OTHER | LOC: M LABSMTC 09:42 | PROVIDERS: ATTEND Physician Assistant | DX: Z01.812 Encounter for preprocedural laboratory examination (principal); Z20.822 Contact with and (suspected) exposure to COVID-19; C68.0 Malignant neoplasm of urethra ==

== ENCOUNTER → 2021-12-22 | Outpatient (CLI) | payer OTHER ==
[2021-12-22 17:19] LABS: BASO # 0.1 10^3/uL (0.0-0.2); BASO % 1.2 % (0.0-1.0); EOS # 0.5 10^3/uL (0.0-0.5); EOS % 5.9 % (0.0-3.0); HEMATOCRIT 36.1 % (42.0-52.0); LYMPH # 1.6 10^3/uL (1.5-5.0); LYMPH % 21.5 % (24.0-44.0); MEAN CORPUSCULAR HEMOGLOBIN 31.4 pg (27.0-33.0); MEAN CORPUSCULAR HGB CONC 33.2 g/dl (32.0-36.5); MEAN CORPUSCULAR VOLUME 94.5 fl (80.0-96.0); MONO # 0.8 10^3/uL (0.0-0.8); NEUTROPHILS # 4.7 10^3/uL (1.5-8.5); PLATELET COUNT, AUTOMATED 258 10^3/uL (150-450); RED BLOOD COUNT 3.82 10^6/uL (4.30-6.10); WHITE BLOOD COUNT 7.6 10^3/uL (4.0-10.0)
[2021-12-22 18:11] LABS: ALBUMIN 3.8 GM/DL (3.2-5.2); BILIRUBIN,TOTAL 0.2 MG/DL (0.2-1.0); CALCIUM LEVEL 8.9 MG/DL (8.8-10.2); CREATININE FOR GFR 1.66 MG/DL (0.70-1.30); FREE T4 0.75 NG/DL (0.76-1.46); GLOMERULAR FILTRATION RATE 44.9 (>49); POTASSIUM SERUM 4.5 MEQ/L (3.5-5.1); PTH INTACT 89.9 PG/ML (18.5-88.0); THYROID STIMULATING HORMONE 1.09 uIU/ML (0.358-3.740); TOTAL 25(OH) VITAMIN D 28.7 NG/ML (30.0-100.0); TOTAL PROTEIN 6.9 GM/DL (6.4-8.2)
== END ==
LOC: M PLALAB 14:54
PROVIDERS: ATTEND Family Medicine
DX: E78.5 Hyperlipidemia, unspecified (principal); E55.9 Vitamin D deficiency, unspecified; E53.8 Deficiency of other specified B group vitamins; I50.42 Chronic combined systolic (congestive) and diastolic (congestive) heart failure; Z79.899 Other long term (current) drug therapy

== ENCOUNTER → 2022-01-19 | Outpatient (CLI) | payer OTHER | LOC: M WHC 13:00 | PROVIDERS: ATTEND Physician Assistant | DX: Z53.9 Procedure and treatment not carried out, unspecified reason (principal) ==

== ENCOUNTER → 2022-01-30 | Outpatient (CLI) | payer OTHER | LOC: M WHC 08:33 | PROVIDERS: ATTEND Physician Assistant | DX: N63.41 Unspecified lump in right breast, subareolar (principal); N62 Hypertrophy of breast | CPT/HCPCS: 76642; 77066; G0279 ==

== ENCOUNTER → 2022-02-23 | Outpatient (REF) | payer OTHER | LOC: M SFHCPLAZ 14:54 | PROVIDERS: ATTEND Physician Assistant | DX: R06.02 Shortness of breath (principal) ==

== ENCOUNTER → 2022-02-27 | Outpatient (CLI) | payer OTHER | LOC: M PLAIMG 12:16 | PROVIDERS: ATTEND Physician Assistant | DX: R05.9 Cough, unspecified (principal) ==

== ENCOUNTER → 2022-03-19 | Outpatient (CLI) | payer OTHER | LOC: M PLAIMG 13:14 | PROVIDERS: ATTEND Physician Assistant | DX: R91.1 Solitary pulmonary nodule (principal) ==

== ENCOUNTER → 2022-04-23 | Outpatient (CLI) | payer OTHER ==
[~2022-04-23] MED LIST changes: +ALBU2.5V10 INH; -ALBU83IN INH; +CALC-265 PO; +CVS5000S2 SL; +D32000CA PO; +ELIQ5TAB PO; +FAMO20TA PO; +GAS-CAP4 PO; +PANT40TA29 PO; +ROSU10TA6 PO
[2022-04-23 13:10] LABS: BASO # 0.1 10^3/uL (0.0-0.2); BASO % 0.9 % (0.0-1.0); EOS # 0.3 10^3/uL (0.0-0.5); HEMATOCRIT 42.5 % (42.0-52.0); LYMPH # 1.6 10^3/uL (1.5-5.0); LYMPH % 18.6 % (24.0-44.0); MEAN CORPUSCULAR HEMOGLOBIN 31.1 pg (27.0-33.0); MEAN CORPUSCULAR HGB CONC 32.9 g/dl (32.0-36.5); MEAN CORPUSCULAR VOLUME 94.4 fl (80.0-96.0); MONO # 0.7 10^3/uL (0.0-0.8); MONO % 7.6 % (2.0-8.0); NEUTROPHILS # 5.8 10^3/uL (1.5-8.5); NEUTROPHILS % 68.4 % (36.0-66.0); PLATELET COUNT, AUTOMATED 238 10^3/uL (150-450); WHITE BLOOD COUNT 8.5 10^3/uL (4.0-10.0)
[2022-04-23 13:36] LABS: ERYTHROCYTE SEDIMENTATION RATE 16 mm/hr (0-20)
[2022-04-23 14:52] LABS: ALBUMIN 3.9 GM/DL (3.2-5.2); C REACTIVE PROTEIN QUANTITATIV 0.31 MG/DL (0.00-0.30); CALCIUM LEVEL 9.6 MG/DL (8.8-10.2); CREATININE FOR GFR 1.74 MG/DL (0.70-1.30); GLOMERULAR FILTRATION RATE 42.4 (>49); MAGNESIUM LEVEL 2.5 MG/DL (1.8-2.4); PHOSPHORUS LEVEL 3.9 MG/DL (2.5-4.9); POTASSIUM SERUM 4.6 MEQ/L (3.5-5.1)
[2022-04-23 15:37] LABS: PTH INTACT 52.1 PG/ML (18.5-88.0); TOTAL 25(OH) VITAMIN D 41.6 NG/ML (30.0-100.0)
[2022-04-23 18:11] LABS: HEMOGLOBIN A1c 5.8 %
[2022-04-25 01:11] LABS: CYCLIC CITRULLINATED PEPTIDE > 250 units (0-19); INSULIN LEVEL 16.4 uIU/mL (2.6-24.9)
== END ==
LOC: M PLALAB 11:55
PROVIDERS: ATTEND Family Medicine
DX: E55.9 Vitamin D deficiency, unspecified (principal); E53.8 Deficiency of other specified B group vitamins; M06.9 Rheumatoid arthritis, unspecified; I11.0 Hypertensive heart disease with heart failure; R73.01 Impaired fasting glucose; K76.0 Fatty (change of) liver, not elsewhere classified; I50.42 Chronic combined systolic (congestive) and diastolic (congestive) heart failure; Z79.899 Other long term (current) drug therapy

== ENCOUNTER → 2022-05-07 | Outpatient (CLI) | payer OTHER | LOC: M LABSMTC 09:56 | PROVIDERS: ATTEND Anesthesiology | DX: Z11.52 Encounter for screening for COVID-19 (principal); Z20.822 Contact with and (suspected) exposure to COVID-19 ==

== ENCOUNTER → 2022-06-14 | Outpatient (REF) | payer OTHER | LOC: M SFHCDERM 14:06 | PROVIDERS: ATTEND Nurse Practitioner Family | DX: L82.1 Other seborrheic keratosis (principal) ==

== ENCOUNTER → 2022-07-24 | Outpatient (CLI) | payer OTHER ==
[2022-07-24 17:38] LABS: BASO # 0.1 10^3/uL (0.0-0.2); BASO % 1.3 % (0.0-1.0); EOS # 0.5 10^3/uL (0.0-0.5); EOS % 5.5 % (0.0-3.0); HEMATOCRIT 44.9 % (42.0-52.0); HEMOGLOBIN 14.7 g/dl (13.5-17.5); LYMPH # 1.8 10^3/uL (1.5-5.0); LYMPH % 20.9 % (24.0-44.0); MEAN CORPUSCULAR HEMOGLOBIN 30.8 pg (27.0-33.0); MEAN CORPUSCULAR HGB CONC 32.7 g/dl (32.0-36.5); MEAN CORPUSCULAR VOLUME 93.9 fl (80.0-96.0); MONO # 0.9 10^3/uL (0.0-0.8); NEUTROPHILS # 5.3 10^3/uL (1.5-8.5); NEUTROPHILS % 61.3 % (36.0-66.0); PLATELET COUNT, AUTOMATED 232 10^3/uL (150-450); RED BLOOD COUNT 4.78 10^6/uL (4.30-6.10); WHITE BLOOD COUNT 8.7 10^3/uL (4.0-10.0)
[2022-07-24 18:07] LABS: ALBUMIN 3.8 GM/DL (3.2-5.2); BILIRUBIN,TOTAL 0.3 MG/DL (0.2-1.0); CALCIUM LEVEL 8.7 MG/DL (8.8-10.2); CREATININE FOR GFR 1.64 MG/DL (0.70-1.30); GLOMERULAR FILTRATION RATE 45.4 (>49); POTASSIUM SERUM 4.6 MEQ/L (3.5-5.1); TOTAL PROTEIN 6.9 GM/DL (6.4-8.2)
== END ==
LOC: M PLALAB 15:43
PROVIDERS: ATTEND Urology
DX: C67.8 Malignant neoplasm of overlapping sites of bladder (principal)

== ENCOUNTER → 2022-09-05 | Outpatient (REF) | payer OTHER | LOC: M SFHCPLAZ 15:08 | PROVIDERS: ATTEND Physician Assistant | DX: J40 Bronchitis, not specified as acute or chronic (principal) ==

== ENCOUNTER → 2022-09-10 | Outpatient (CLI) | payer OTHER ==
[2022-09-10 16:44] LABS: C REACTIVE PROTEIN QUANTITATIV 0.52 MG/DL (0.00-0.30); MAGNESIUM LEVEL 2.2 MG/DL (1.8-2.4)
== END ==
LOC: M PLALAB 11:33
PROVIDERS: ATTEND Family Medicine
DX: M06.9 Rheumatoid arthritis, unspecified (principal); R10.13 Epigastric pain; I50.42 Chronic combined systolic (congestive) and diastolic (congestive) heart failure

== ENCOUNTER → 2022-10-03 | Outpatient (CLI) | payer OTHER | LOC: M PLAIMG 11:48 | PROVIDERS: ATTEND Physician Assistant | DX: R06.02 Shortness of breath (principal); R05.1 Acute cough ==

== ENCOUNTER → 2022-10-05 | Outpatient (CLI) | payer OTHER | LOC: M RAD 10:45 | PROVIDERS: ATTEND Family Medicine | DX: R10.13 Epigastric pain (principal) | CPT/HCPCS: 78264; A9541 ==

== ENCOUNTER → 2023-01-16 | Outpatient (CLI) | payer OTHER ==
[2023-01-16 15:19] LABS: BASO # 0.1 10^3/uL (0.0-0.2); BASO % 1.3 % (0.0-1.0); EOS # 0.3 10^3/uL (0.0-0.5); EOS % 4.1 % (0.0-3.0); HEMATOCRIT 45.5 % (42.0-52.0); HEMOGLOBIN 14.9 g/dl (13.5-17.5); LYMPH # 1.6 10^3/uL (1.5-5.0); LYMPH % 20.2 % (24.0-44.0); MEAN CORPUSCULAR HEMOGLOBIN 30.6 pg (27.0-33.0); MEAN CORPUSCULAR HGB CONC 32.7 g/dl (32.0-36.5); MEAN CORPUSCULAR VOLUME 93.4 fl (80.0-96.0); MONO # 0.7 10^3/uL (0.0-0.8); MONO % 9.1 % (2.0-8.0); NEUTROPHILS # 5.1 10^3/uL (1.5-8.5); PLATELET COUNT, AUTOMATED 211 10^3/uL (150-450); RED BLOOD COUNT 4.87 10^6/uL (4.30-6.10); WHITE BLOOD COUNT 7.8 10^3/uL (4.0-10.0)
[2023-01-16 15:30] LABS: INR 0.99; PROTHROMBIN TIME 13.3 SECONDS (12.5-14.5)
[2023-01-16 15:31] LABS: PARTIAL THROMBOPLASTIN TIME 31.2 SECONDS (24.8-34.2)
[2023-01-16 15:32] LABS: HEMOGLOBIN A1c 5.6 % (4.0-6.0)
[2023-01-16 15:34] LABS: ERYTHROCYTE SEDIMENTATION RATE 20 mm/hr (0-20)
[2023-01-16 15:46] LABS: C REACTIVE PROTEIN QUANTITATIV 0.5 MG/DL (<1.0)
[2023-01-16 15:49] LABS: CHOLESTEROL RISK RATIO 3.22 (<5); HDL CHOLESTEROL 34.1 MG/DL (>40); LDL CHOLESTEROL 43.3 MG/DL (<100); NON-HDL-C 75.9 MG/DL
[2023-01-18 07:07] LABS: H PYLORI SERUM QUANT IgG ABY 0.3 (0.00-0.79)
== END ==
LOC: M PLALAB 12:08
PROVIDERS: ATTEND Family Medicine
DX: M06.9 Rheumatoid arthritis, unspecified (principal); K76.0 Fatty (change of) liver, not elsewhere classified; E53.8 Deficiency of other specified B group vitamins; R73.01 Impaired fasting glucose; I50.42 Chronic combined systolic (congestive) and diastolic (congestive) heart failure; Z12.5 Encounter for screening for malignant neoplasm of prostate
CPT/HCPCS: 36415; 80061; 80220; 82105; 82607; 83036; 83880; 85025; 85046; 85610; 85652; 85730; 86140; 86677; G0103

== ENCOUNTER → 2023-02-18 | Outpatient (CLI) | payer OTHER ==
[2023-02-18 17:31] LABS: BASO # 0.1 10^3/uL (0.0-0.2); BASO % 1.3 % (0.0-1.0); EOS # 0.4 10^3/uL (0.0-0.5); EOS % 4.6 % (0.0-3.0); HEMATOCRIT 44.7 % (42.0-52.0); HEMOGLOBIN 14.7 g/dl (13.5-17.5); LYMPH # 1.7 10^3/uL (1.5-5.0); LYMPH % 20.9 % (24.0-44.0); MEAN CORPUSCULAR HEMOGLOBIN 30.4 pg (27.0-33.0); MEAN CORPUSCULAR HGB CONC 32.9 g/dl (32.0-36.5); MEAN CORPUSCULAR VOLUME 92.5 fl (80.0-96.0); MONO # 0.9 10^3/uL (0.0-0.8); MONO % 10.6 % (2.0-8.0); NEUTROPHILS # 5.1 10^3/uL (1.5-8.5); NEUTROPHILS % 62.4 % (36.0-66.0); PLATELET COUNT, AUTOMATED 223 10^3/uL (150-450); RED BLOOD COUNT 4.83 10^6/uL (4.30-6.10); WHITE BLOOD COUNT 8.2 10^3/uL (4.0-10.0)
[2023-02-18 17:51] LABS: ALBUMIN 3.7 G/DL (3.2-5.2); BILIRUBIN,TOTAL 0.3 MG/DL (0.3-1.2); CALCIUM LEVEL 8.7 MG/DL (8.3-10.6); CREATININE FOR GFR 1.57 MG/DL (0.70-1.30); GLOMERULAR FILTRATION RATE 47.6 (>49); POTASSIUM SERUM 4.9 MMOL/L (3.5-5.1); TOTAL PROTEIN 6.8 G/DL (5.7-8.2)
== END ==
LOC: M PLALAB 15:07
PROVIDERS: ATTEND Physician Assistant Medical
DX: C79.19 Secondary malignant neoplasm of other urinary organs (principal)

== ENCOUNTER → 2023-05-21 | Outpatient (REF) | payer OTHER ==
[~2023-05-21] MED LIST changes: -HYDR200T3; -HYDR200T3 PO; +HYDR200T46; +HYDR200T46 PO
[2023-05-21 18:42] LABS: BASO # 0.1 10^3/uL (0.0-0.2); EOS # 0.3 10^3/uL (0.0-0.5); EOS % 3.2 % (0.0-3.0); HEMATOCRIT 44.3 % (42.0-52.0); HEMOGLOBIN 14.6 g/dl (13.5-17.5); LYMPH # 1.8 10^3/uL (1.5-5.0); LYMPH % 19.7 % (24.0-44.0); MEAN CORPUSCULAR HEMOGLOBIN 30.9 pg (27.0-33.0); MEAN CORPUSCULAR VOLUME 93.7 fl (80.0-96.0); MONO # 0.8 10^3/uL (0.0-0.8); MONO % 8.9 % (2.0-8.0); NEUTROPHILS # 6.2 10^3/uL (1.5-8.5); NEUTROPHILS % 66.9 % (36.0-66.0); PLATELET COUNT, AUTOMATED 233 10^3/uL (150-450); RED BLOOD COUNT 4.73 10^6/uL (4.30-6.10); WHITE BLOOD COUNT 9.3 10^3/uL (4.0-10.0)
[2023-05-21 18:57] LABS: ERYTHROCYTE SEDIMENTATION RATE 9 mm/hr (0-20)
[2023-05-21 19:05] LABS: ALBUMIN 3.8 G/DL (3.2-5.2); ALKALINE PHOSPHATASE 70 U/L (46-116); ALT/SGPT 17 U/L (7.0-40); AST/SGOT 11 U/L (<34); BILIRUBIN,TOTAL 0.5 MG/DL (0.3-1.2); BLOOD UREA NITROGEN 24 MG/DL (9-23); C REACTIVE PROTEIN QUANTITATIV < 0.40 MG/DL (<1.0); CALCIUM LEVEL 8.9 MG/DL (8.3-10.6); CARBON DIOXIDE LEVEL 24 MMOL/L (20-31); CHLORIDE LEVEL 107 MMOL/L (98-107); CREATININE FOR GFR 1.57 MG/DL (0.70-1.30); FERRITIN 39.7 NG/ML (10.5-307.3); GLOMERULAR FILTRATION RATE 47.6 (>49); GLUCOSE, FASTING 87 MG/DL (74-106); POTASSIUM SERUM 5.1 MMOL/L (3.5-5.1); SODIUM LEVEL 141 MMOL/L (136-145); TOTAL PROTEIN 6.7 G/DL (5.7-8.2)
== END ==
LOC: M SFHCPLAZ 17:32
PROVIDERS: ATTEND Family Medicine
DX: M06.9 Rheumatoid arthritis, unspecified (principal); I50.42 Chronic combined systolic (congestive) and diastolic (congestive) heart failure

== ENCOUNTER → 2023-05-23 | Outpatient (REF) | payer OTHER | LOC: M SFHCPLAZ 10:56 | PROVIDERS: ATTEND Family Medicine | DX: D50.9 Iron deficiency anemia, unspecified (principal); M06.9 Rheumatoid arthritis, unspecified; R73.01 Impaired fasting glucose ==

== ENCOUNTER → 2023-06-14 | Outpatient (CLI) | payer OTHER | LOC: M RAD 07:15 | PROVIDERS: ATTEND Family Medicine | DX: R91.1 Solitary pulmonary nodule (principal); C68.9 Malignant neoplasm of urinary organ, unspecified ==

== ENCOUNTER → 2023-07-31 | Outpatient (CLI) | payer OTHER | LOC: M PLALAB 12:14 | PROVIDERS: ATTEND Physician Assistant | DX: J40 Bronchitis, not specified as acute or chronic (principal) ==

== ENCOUNTER → 2023-09-02 | Outpatient (CLI) | payer OTHER | LOC: M RAD 17:07 | PROVIDERS: ATTEND Urology | DX: C67.8 Malignant neoplasm of overlapping sites of bladder (principal) ==

== ENCOUNTER → 2023-09-02 | Outpatient (CLI) | payer OTHER ==
[2023-09-02 16:30] LABS: CALCIUM LEVEL 9.2 MG/DL (8.3-10.6); CREATININE FOR GFR 1.43 MG/DL (0.70-1.30); POTASSIUM SERUM 4.9 MMOL/L (3.5-5.1)
== END ==
LOC: M PLALAB 12:03
PROVIDERS: ATTEND Urology
DX: C67.8 Malignant neoplasm of overlapping sites of bladder (principal)

== ENCOUNTER → 2024-02-14 | Outpatient (CLI) | payer OTHER ==
[2024-02-14 15:24] LABS: BASO # 0.1 10^3/uL (0.0-0.2); BASO % 0.8 % (0.0-1.0); EOS # 0.4 10^3/uL (0.0-0.5); EOS % 4.5 % (0.0-3.0); HEMATOCRIT 48.7 % (42.0-52.0); HEMOGLOBIN 16.3 g/dl (13.5-17.5); LYMPH # 1.6 10^3/uL (1.5-5.0); LYMPH % 16.5 % (24.0-44.0); MEAN CORPUSCULAR HEMOGLOBIN 32.3 pg (27.0-33.0); MEAN CORPUSCULAR HGB CONC 33.5 g/dl (32.0-36.5); MEAN CORPUSCULAR VOLUME 96.4 fl (80.0-96.0); MONO # 0.9 10^3/uL (0.0-0.8); MONO % 9.2 % (2.0-8.0); NEUTROPHILS # 6.7 10^3/uL (1.5-8.5); NEUTROPHILS % 68.6 % (36.0-66.0); PLATELET COUNT, AUTOMATED 212 10^3/uL (150-450); RED BLOOD COUNT 5.05 10^6/uL (4.30-6.10); WHITE BLOOD COUNT 9.7 10^3/uL (4.0-10.0)
[2024-02-14 15:34] LABS: ERYTHROCYTE SEDIMENTATION RATE 16 mm/hr (0-20)
[2024-02-14 15:38] LABS: HEMOGLOBIN A1c 5.6 % (4.0-6.0)
[2024-02-14 15:54] LABS: C REACTIVE PROTEIN QUANTITATIV 0.5 MG/DL (<1.0)
[2024-02-14 15:56] LABS: CHOLESTEROL RISK RATIO 3.14 (<5); HDL CHOLESTEROL 41.6 MG/DL (>40); LDL CHOLESTEROL 42.4 MG/DL (<100); NON-HDL-C 89.4 MG/DL
[2024-02-14 15:57] LABS: FERRITIN 33.1 NG/ML (10.5-307.3)
[2024-02-17 18:11] LABS: SOLUBLE TRANSFERRIN RECEPTOR 15.9 nmol/L (12.2-27.3); TISSUE TRANSGLUTAMINASE IgA <2 U/mL (0-3)
== END ==
LOC: M PLALAB 14:12
PROVIDERS: ATTEND Family Medicine
DX: D50.9 Iron deficiency anemia, unspecified (principal); E78.00 Pure hypercholesterolemia, unspecified

== ENCOUNTER → 2024-02-17 | Outpatient (REF) | payer OTHER | LOC: M SFHCPLAZ 09:34 | PROVIDERS: ATTEND Family Medicine | DX: D50.9 Iron deficiency anemia, unspecified (principal); M06.9 Rheumatoid arthritis, unspecified; K76.0 Fatty (change of) liver, not elsewhere classified ==

== ENCOUNTER → 2024-02-17 | Outpatient (CLI) | payer OTHER | LOC: M RAD 10:14 | PROVIDERS: ATTEND Family Medicine | DX: M47.812 Spondylosis without myelopathy or radiculopathy, cervical region (principal) ==

== ENCOUNTER → 2024-07-08 | Outpatient (CLI) | payer OTHER ==
[~2024-07-08] MED LIST changes: +PIPE2.2525 IV; -ROSU10TA6; -ROSU10TA6 PO; +ROSU10TA61; +ROSU10TA61 PO; -ZOSY1SOL4 IV
[2024-07-08 14:59] LABS: BASO # 0.1 10^3/uL (0.0-0.2); BASO % 0.6 % (0.0-1.0); EOS # 0.4 10^3/uL (0.0-0.5); EOS % 3.5 % (0.0-3.0); HEMATOCRIT 47.5 % (42.0-52.0); HEMOGLOBIN 15.9 g/dl (13.5-17.5); LYMPH # 1.4 10^3/uL (1.5-5.0); LYMPH % 13.2 % (24.0-44.0); MEAN CORPUSCULAR HEMOGLOBIN 31.9 pg (27.0-33.0); MEAN CORPUSCULAR HGB CONC 33.5 g/dl (32.0-36.5); MEAN CORPUSCULAR VOLUME 95.4 fl (80.0-96.0); MONO # 0.9 10^3/uL (0.0-0.8); MONO % 8.5 % (2.0-8.0); NEUTROPHILS % 73.8 % (36.0-66.0); PLATELET COUNT, AUTOMATED 189 10^3/uL (150-450); RED BLOOD COUNT 4.98 10^6/uL (4.30-6.10); WHITE BLOOD COUNT 10.8 10^3/uL (4.0-10.0)
[2024-07-08 15:06] LABS: ERYTHROCYTE SEDIMENTATION RATE 16 mm/hr (0-20)
[2024-07-08 15:11] LABS: INR 0.99; PARTIAL THROMBOPLASTIN TIME 30.5 SECONDS (24.8-34.2); PROTHROMBIN TIME 12.8 SECONDS (12.5-14.5)
[2024-07-08 15:22] LABS: C REACTIVE PROTEIN QUANTITATIV 1.7 MG/DL (<1.0)
[2024-07-08 15:24] LABS: ALBUMIN 3.8 G/DL (3.2-5.2); BILIRUBIN,TOTAL 1.1 MG/DL (0.3-1.2); CALCIUM LEVEL 9.9 MG/DL (8.3-10.6); CREATININE FOR GFR 1.46 MG/DL (0.70-1.30); GLOMERULAR FILTRATION RATE 51.6 (>49); POTASSIUM SERUM 5.3 MMOL/L (3.5-5.1); TOTAL PROTEIN 6.8 G/DL (5.7-8.2)
[2024-07-08 15:25] LABS: FERRITIN 50.7 NG/ML (10.5-307.3)
== END ==
LOC: M PLALAB 12:34
PROVIDERS: ATTEND Family Medicine
DX: D50.9 Iron deficiency anemia, unspecified (principal); M06.9 Rheumatoid arthritis, unspecified; K76.0 Fatty (change of) liver, not elsewhere classified

== ENCOUNTER → 2024-07-10 | Outpatient (REF) | payer MEDICARE, OTHER | LOC: M SFHCPLAZ 12:15 | PROVIDERS: ATTEND Family Medicine | DX: D50.9 Iron deficiency anemia, unspecified (principal); M06.9 Rheumatoid arthritis, unspecified; K76.0 Fatty (change of) liver, not elsewhere classified; I50.42 Chronic combined systolic (congestive) and diastolic (congestive) heart failure ==

== ENCOUNTER → 2024-07-11 | Outpatient (CLI) | payer MEDICARE, OTHER | LOC: M RAD 11:29 | PROVIDERS: ATTEND Family Medicine | DX: J44.9 Chronic obstructive pulmonary disease, unspecified (principal) ==

== ENCOUNTER → 2024-07-11 | Outpatient (REF) | payer MEDICARE, OTHER | LOC: M LAB REF 12:57 | PROVIDERS: ATTEND Family Medicine | DX: J44.9 Chronic obstructive pulmonary disease, unspecified (principal) ==

== ENCOUNTER → 2024-07-15 | Outpatient (REF) | payer MEDICARE, OTHER | LOC: M SFHCPLAZ 09:55 | DX: J44.9 Chronic obstructive pulmonary disease, unspecified (principal) ==

== ENCOUNTER → 2024-07-16 | Outpatient (CLI) | payer OTHER | LOC: M PLAIMG 10:38 | PROVIDERS: ATTEND Physician Assistant | DX: G44.52 New daily persistent headache (NDPH) (principal) ==

== ENCOUNTER → 2024-07-16 | Outpatient (REF) | payer MEDICARE, OTHER | LOC: M SFHCPLAZ 12:03 | DX: T14.8XXA Other injury of unspecified body region, initial encounter (principal) ==

== ENCOUNTER → 2024-07-17 | Outpatient (REF) | payer MEDICARE, OTHER | LOC: M SFHCPLAZ 08:50 | DX: T14.8XXA Other injury of unspecified body region, initial encounter (principal) ==

== ENCOUNTER → 2024-07-23 | Outpatient (CLI) | payer MEDICARE, OTHER | LOC: M WHC 09:37 | DX: I71.40 Abdominal aortic aneurysm, without rupture, unspecified (principal) ==

== ENCOUNTER → 2024-07-24 | Outpatient (CLI) | payer OTHER | LOC: M PLALAB 15:14 | PROVIDERS: ATTEND Ophthalmology | DX: M31.6 Other giant cell arteritis (principal) ==

== ENCOUNTER → 2024-07-30 | Outpatient (CLI) | payer OTHER | LOC: M RAD 10:37 → EEVIPCON 11:00 | DX: Z12.2 Encounter for screening for malignant neoplasm of respiratory organs (principal); F17.210 Nicotine dependence, cigarettes, uncomplicated ==

== ENCOUNTER → 2024-08-06 | Outpatient (CLI) | payer OTHER | LOC: M RAD 18:14 | DX: R91.1 Solitary pulmonary nodule (principal) ==

== ENCOUNTER → 2024-08-20 | Outpatient (REF) | payer OTHER | LOC: M SFHCPLAZ 10:03 | DX: Z90.5 Acquired absence of kidney (principal) ==

== ENCOUNTER → 2024-08-24 | Outpatient (CLI) | payer OTHER | LOC: M RAD 09:36 | DX: I71.40 Abdominal aortic aneurysm, without rupture, unspecified (principal) ==

== ENCOUNTER → 2024-09-07 | Outpatient (CLI) | payer OTHER | LOC: M PLARAD 09:06 | DX: R91.8 Other nonspecific abnormal finding of lung field (principal) | CPT/HCPCS: 78815; A9552 ==

== ENCOUNTER → 2024-10-23 | Outpatient (CLI) | payer OTHER ==
[2024-10-23 15:28] LABS: HEMOGLOBIN 15.6 g/dl (13.5-17.5); MEAN CORPUSCULAR HEMOGLOBIN 31.6 pg (27.0-33.0); MEAN CORPUSCULAR HGB CONC 33.2 g/dl (32.0-36.5); MEAN CORPUSCULAR VOLUME 95.1 fl (80.0-96.0); PLATELET COUNT, AUTOMATED 215 10^3/uL (150-450); RED BLOOD COUNT 4.94 10^6/uL (4.30-6.10); WHITE BLOOD COUNT 8.9 10^3/uL (4.0-10.0)
[2024-10-23 15:53] LABS: ALBUMIN 3.8 G/DL (3.2-5.2); BILIRUBIN,TOTAL 0.4 MG/DL (0.3-1.2); CALCIUM LEVEL 9.2 MG/DL (8.3-10.6); CREATININE FOR GFR 1.47 MG/DL (0.70-1.30); GLOMERULAR FILTRATION RATE 51.2 (>49); POTASSIUM SERUM 4.3 MMOL/L (3.5-5.1); TOTAL PROTEIN 6.6 G/DL (5.7-8.2)
== END ==
LOC: M PLALAB 12:44
DX: Z90.5 Acquired absence of kidney (principal); Z79.899 Other long term (current) drug therapy

== ENCOUNTER → 2024-11-02 | Outpatient (REF) | payer OTHER | LOC: M SFHCPLAZ 12:39 | PROVIDERS: ATTEND Physician Assistant Medical | DX: R30.0 Dysuria (principal) ==

== ENCOUNTER → 2025-01-11 | Outpatient (CLI) | payer OTHER ==
[2025-01-11 17:20] LABS: HEMATOCRIT 48.4 % (42.0-52.0); MEAN CORPUSCULAR HEMOGLOBIN 31.7 pg (27.0-33.0); MEAN CORPUSCULAR HGB CONC 33.1 g/dl (32.0-36.5); PLATELET COUNT, AUTOMATED 227 10^3/uL (150-450); RED BLOOD COUNT 5.04 10^6/uL (4.30-6.10); WHITE BLOOD COUNT 10.7 10^3/uL (4.0-10.0)
[2025-01-11 17:40] LABS: ALBUMIN 3.6 G/DL (3.2-5.2); BILIRUBIN,TOTAL 0.4 MG/DL (0.3-1.2); CALCIUM LEVEL 8.7 MG/DL (8.3-10.6); CREATININE FOR GFR 1.63 MG/DL (0.70-1.30); GLOMERULAR FILTRATION RATE 45.3 (>49); POTASSIUM SERUM 4.7 MMOL/L (3.5-5.1); TOTAL PROTEIN 6.4 G/DL (5.7-8.2)
== END ==
LOC: M PLALAB 15:39
PROVIDERS: ATTEND Physician Assistant
DX: G44.52 New daily persistent headache (NDPH) (principal); R30.0 Dysuria

== ENCOUNTER → 2025-02-11 | Outpatient (CLI) | payer OTHER | LOC: M RAD 08:18 | PROVIDERS: ATTEND Family Medicine | DX: R91.1 Solitary pulmonary nodule (principal); J43.9 Emphysema, unspecified; I77.810 Thoracic aortic ectasia; I25.10 Atherosclerotic heart disease of native coronary artery without angina pectoris; I25.84 Coronary atherosclerosis due to calcified coronary lesion ==

== ENCOUNTER 2025-05-17 08:30 | Outpatient (CLI) | payer OTHER ==
[~2025-05-17] VITALS: Ht 177.8 cm; Wt 94.1 kg
[~2025-05-17 08:30] MED LIST changes: +ALBUTEROL SULFATE 2.5 MG/0.5 ML INH CONCENTRATE NEB SOLN INH PRN; +EPINEPHrine INJ 1 MG/ML 1ML AMP IM PRN; +diphenhydrAMINE 50 MG/ML VIAL IV PRN
[2025-05-17 08:40] VITALS: BP 130/81; O2SAT 100
[2025-05-17] MEDS: IRON SUCROSE 500 MG in NS 250 ML OVER 4 HRS IV ONE (09:26)
[2025-05-17 10:30] VITALS: BP 129/84; O2SAT 100
[2025-05-17 11:30] VITALS: BP 130/86; O2SAT 100
[2025-05-17 12:30] VITALS: BP 140/83; O2SAT 98
[2025-05-17 14:10] VITALS: BP 138/82; O2SAT 96
== END 2025-05-17 14:15 | disposition home or self-care (01) ==
LOC: M INFU 08:30
PROVIDERS: ATTEND Family Medicine
DX: D50.9 Iron deficiency anemia, unspecified (principal); Z88.1 Allergy status to other antibiotic agents; Z88.8 Allergy status to other drugs, medicaments and biological substances
CPT/HCPCS: 96365; 96366; 96375; J1756; J2919

== ENCOUNTER → 2025-05-25 | Outpatient (CLI) | payer OTHER ==
[~2025-05-25] MED LIST changes: -ALBUTEROL SULFATE 2.5 MG/0.5 ML INH CONCENTRATE NEB SOLN INH PRN; -EPINEPHrine INJ 1 MG/ML 1ML AMP IM PRN; -diphenhydrAMINE 50 MG/ML VIAL IV PRN
== END ==
LOC: M RAD 08:33
PROVIDERS: ATTEND Family Medicine
DX: I71.40 Abdominal aortic aneurysm, without rupture, unspecified (principal); I70.0 Atherosclerosis of aorta